=== PATIENT | female | born 1955 | race Caucasian/White ===

== ENCOUNTER → 2017-10-24 12:08 | Outpatient (CLI) | payer BC, SELFPAY ==
[2017-10-24 14:24] LABS: Absolute Lymphocyte Count 2.01 X10^3/ul (0.83-4.51); Absolute Neutrophil Count 3.7 X10^3/uL (2.0-7.7); Basophil# 0.01 X10^3/uL; Basophil% 0.2 % (0-1); Eosinophil# 0.06 X10^3/uL; Eosinophils% 0.9 % (0-5); Hematocrit 34.8 % (37-47); Hemoglobin 11.5 g/dl (12.0-15.0); Lymphocyte # 2.01 X10^3/ul (4.0); Lymphocyte % 31.3 % (19-41); Mean Corpuscular Hgb 31.7 pg (27.0-32.0); Mean Corpuscular Volume 95.9 fL (81-99); Monocyte# 0.68 X10^3/uL; Monocyte% 10.6 % (0-10); Neutrophil # 3.67 X10^3/uL (2.7-7.7); Platelet Count 310 K/mm3 (150-450); RBC Distribution Width CV 13.3 % (11.6-14.6); RBC Distribution Width SD 44.7 fl (35.1-43.9); Red Blood Count 3.63 M/mm3 (4.2-5.4); White Blood Count 6.4 K/mm3 (4.4-11.0)
[2017-10-24 14:31] LABS: AST(SGOT) 14 U/L (15-37); Alanine Aminotransfer ALT/SGPT 19 U/L (13-56); Albumin, Serum 3.7 g/dL (3.2-5.0); Alkaline Phosphatase 67 U/L (45-117); Bilirubin, Direct 0.11 mg/dL (0.00-0.30); Globulin 3.5 g/dL (2.2-4.2); Protein, Total 7.2 g/dL (6.4-8.2)
[2017-10-24 14:36] LABS: POSITIVE COUNT NO; POSITIVE DIFFERENTIAL NO; POSITIVE MORPHOLOGY NO
[2017-10-28 03:06] LABS: QNTFERON TB Ag Minus Nil Value < 0 IU/mL (.); QNTFERON TB Ag Value 0.09 IU/mL (.); QNTFERON TB Mitogen Value > 10.00 IU/mL (.); QNTFERON TB Nil Value 0.11 IU/mL (.)
[2017-10-28 08:18] LABS: QNTIFERON TB Gold Negative (Negative)
== END ==
PROVIDERS: Family Provider Student in an Organized Health Care Education/Training Program; PCP Student in an Organized Health Care Education/Training Program; Visit Provider Dermatology
DX: Z79.899 Other long term (current) drug therapy (principal); L40.0 Psoriasis vulgaris; L29.8 Other pruritus
CPT/HCPCS: 36415; 80076; 85025; 86480

== ENCOUNTER → 2018-04-21 16:02 | Outpatient (CLI) | payer BC, SELFPAY ==
[2018-04-21 17:52] LABS: Absolute Lymphocyte Count 2.64 X10^3/ul (0.83-4.51); Absolute Neutrophil Count 3.7 X10^3/uL (2.0-7.7); Basophil# 0.04 X10^3/uL; Basophil% 0.6 % (0-1); Eosinophil# 0.09 X10^3/uL; Eosinophils% 1.3 % (0-5); Lymphocyte # 2.64 X10^3/ul (4.0); Lymphocyte % 38.2 % (19-41); Mean Corp Hgb Conc 32.4 g/gl (32-36); Mean Corpuscular Hgb 31.6 pg (27.0-32.0); Mean Corpuscular Volume 97.7 fL (81-99); Mean Platelet Vol. 8.6 fl (6.2-12.0); Monocyte# 0.45 X10^3/uL; Monocyte% 6.5 % (0-10); Neutrophil # 3.68 X10^3/uL (2.7-7.7); Neutrophil % 53.3 % (47-70); Platelet Count 317 K/mm3 (150-450); RBC Distribution Width CV 13.9 % (11.6-14.6); RBC Distribution Width SD 48.3 fl (35.1-43.9); Red Blood Count 3.48 M/mm3 (4.2-5.4); White Blood Count 6.9 K/mm3 (4.4-11.0)
[2018-04-21 17:58] LABS: POSITIVE COUNT NO; POSITIVE DIFFERENTIAL NO; POSITIVE MORPHOLOGY NO
[2018-04-21 18:42] LABS: AST(SGOT) 21 U/L (15-37); Alanine Aminotransfer ALT/SGPT 22 U/L (13-56); Alkaline Phosphatase 77 U/L (45-117); Bilirubin, Direct 0.09 mg/dL (0.00-0.30); Globulin 3.8 g/dL (2.2-4.2); Protein, Total 7.8 g/dL (6.4-8.2)
== END ==
PROVIDERS: Family Provider Student in an Organized Health Care Education/Training Program; PCP Student in an Organized Health Care Education/Training Program; Visit Provider Dermatology
DX: Z79.899 Other long term (current) drug therapy (principal)
CPT/HCPCS: 36415; 80076; 85025

== ENCOUNTER 2018-04-22 13:30 | Outpatient (RCR) | payer BC, SELFPAY ==
--- NOTE | 2018-01-07 14:25 | HP.PTEVAL_ITS ---
Patient's Visit Information CHRIS BEATTY is a 62 year old F referred to Physical Therapy by ALEXANDER RG MD with a diagnosis of L TKA. Date of Evaluation: 01/07/18 Physical Therapist: Jelani Urban, PT, - Visit Plan Frequency: 2-3x /Week Duration: 6 Weeks Plan: L knee and calf stretching, AROM, - Subjective Subjective: Pt is 62 yo retired female s/p L TKA on 12/16/17. Pt notes L knee pain 5/10. Pt is taking tylenol for pain relief. In the last week, L knee pain has reached 7/10. Reports L calf pain and cramping at night. Pt reports the entire L leg starts shaking at night and then the calf begins to cramp at night. Pt reports difficulty sleeping. Pt reports difficulty bending the L knee. Pt walks up stairs one step at a time. - Pain L knee Pain Intensity (Out of 10): 5 Pain Intensity Range: 7 - Objective Neuro: All sensation in B LE to light touch is intact. Reflexes: B achilles 2+. AROM: L knee 0-8-68 deg. PROM: L knee flex 78 deg. MMT: Not tested at this time. L LE strength is 3/5 as pt is able to lift L leg against gravity. Incision: Surgical incision is healing nicely. Minimal redness noted. Girth: R knee is 42 cm. L knee is 42 cm. - Goals Goal 1:: Increase L knee ROM to 0-120 deg to help with ambulation and stair negotiation. Goal Time Frame: 4-6 Weeks Goal 2:: Reduce L knee pain to 0-2/10 to aid with sleeping. Goal Time Frame: 4-6 Weeks Goal 3:: Increase L LE strength by 1/2 grades to aid with ambulation. Goal Time Frame: 4-6 Weeks Goal 4:: Pt is I with HEP. Goal Time Frame: 4-6 Weeks - Rehabilitation Potential Physical Therapy Diagnosis: Decreased L knee ROM and L LE weakness secondary to L TKA. Rehabilitation Potential: Good - Anticipated Interventions Patient/Client Instruction: Educate patient on: Condition, Plan of Care For the Purpose of:: To improve health and function Therapeutic Exercise to Include: Strength training, Balance training, Passive ROM, Active ROM For the Purpose of:: To decrease pain, To decrease swelling/inflammation, To increase ROM, To improve muscle performance and motor function Manual Therapy Techniques to Include: Mobilization, Passive ROM For the Purpose of:: To decrease pain, To increase ROM Cryotherapy (ice pack, ice massage): Yes For the Purpose of:: To decrease pain Thank you for the opportunity to evaluate your patient. For Medicare and Medicare HMO plans, please review the plan of care and approve it. It will need to be FAXED BACK to us at [phone] for Medicare purposes. Please let me know if there are questions or concerns regarding this plan of care. Physician Signature: Date:
--- NOTE | 2018-01-29 15:09 | HP.PTREVAL_ITS ---
ALEXANDER RG MD, It has been my pleasure to treat CHRIS BEATTY over the last 10 visits for L TKA. Please see the progress note below for an update on the physical therapy plan of care! Subjective: I am doing better today. 3 1/2 /10 pain level Objective/Function: L knee pain 3.5/10. L knee ROM 0-110. L knee MMT 4-/5 throughout. Pt troy all Rx well Plan Plan: L knee and calf stretching, AROM, LE/Core strengthening. Goals Goal 1:: Increase L knee ROM to 0-120 deg to help with ambulation and stair negotiation. Goal Time Frame: 4-6 Weeks Goal 2:: Reduce L knee pain to 0-2/10 to aid with sleeping. Goal Time Frame: 4-6 Weeks Goal 3:: Increase L LE strength by 1/2 grades to aid with ambulation. Goal Time Frame: 4-6 Weeks Goal 4:: Pt is I with HEP. Goal Time Frame: 4-6 Weeks Anticipated Interventions Patient/Client Instruction: Educate patient on: Condition, Plan of Care For the Purpose of:: To improve health and function Therapeutic Exercise to Include: Strength training, Balance training, Passive ROM, Active ROM For the Purpose of:: To decrease pain, To decrease swelling/inflammation, To increase ROM, To improve muscle performance and motor function Manual Therapy Techniques to Include: Mobilization, Passive ROM For the Purpose of:: To decrease pain, To increase ROM Cryotherapy (ice pack, ice massage): Yes For the Purpose of:: To decrease pain Please do not hesitate to contact me at [phone] by phone or Fax: if you have questions or concerns regarding this new plan of care! Sincerely, Jelani Urban, PT,
--- NOTE | 2018-03-05 14:06 | HP.PTREVAL_ITS ---
ALEXANDER RG MD, It has been my pleasure to treat CHRIS BEATTY over the last 20 visits for L TKA. Please see the progress note below for an update on the physical therapy plan of care! Subjective: Mild pain this date. just took advil before coming today Objective/Function: L knee pain is currently 3/10, increases to 5/10 at worst. L knee girth at joint line: 41 cm. L knee MMT: 4-/5 throughout. L knee ROM: 0- 111 Plan Plan: Recheck after pt returns from 5 week vacation Goals Goal 1:: Increase L knee ROM to 0-120 deg to help with ambulation and stair negotiation. Goal Time Frame: 4-6 Weeks Goal 2:: Reduce L knee pain to 0-2/10 to aid with sleeping. Goal Time Frame: 4-6 Weeks Goal 3:: Increase L LE strength by 1/2 grades to aid with ambulation. Goal Time Frame: 4-6 Weeks Goal 4:: Pt is I with HEP. Goal Time Frame: 4-6 Weeks Anticipated Interventions Patient/Client Instruction: Educate patient on: Condition, Plan of Care For the Purpose of:: To improve health and function Therapeutic Exercise to Include: Strength training, Balance training, Passive ROM, Active ROM For the Purpose of:: To decrease pain, To decrease swelling/inflammation, To increase ROM, To improve muscle performance and motor function Manual Therapy Techniques to Include: Mobilization, Passive ROM For the Purpose of:: To decrease pain, To increase ROM Cryotherapy (ice pack, ice massage): Yes For the Purpose of:: To decrease pain Please do not hesitate to contact me at [phone] by phone or Fax: if you have questions or concerns regarding this new plan of care! Sincerely, Jelani Urban, PT,
--- NOTE | 2018-04-22 14:14 | HP.PTEVAL_ITS ---
Patient's Visit Information CHRIS BEATTY is a 62 year old F referred to Physical Therapy by ALEXANDER RG MD with a diagnosis of L TKA. Date of Evaluation: 01/07/18 Physical Therapist: Jelani Urban PT, - Visit Plan Frequency: 2-3x /Week Duration: 6 Weeks Plan: Discharge - Subjective Subjective: Pt is 62 yo retired female s/p L TKA on 12/16/17. Pt notes L knee pain 5/10. Pt is taking tylenol for pain relief. In the last week, L knee pain has reached 7/10. Reports L calf pain and cramping at night. Pt reports the entire L leg starts shaking at night and then the calf begins to cramp at night. Pt reports difficulty sleeping. Pt reports difficulty bending the L knee. Pt walks up stairs one step at a time. - Pain L knee Pain Intensity (Out of 10): 3 Pain Intensity Range: 7 - Objective Neuro: All sensation in B LE to light touch is intact. Reflexes: B achilles 2+. AROM: L knee 0-8-68 deg. PROM: L knee flex 78 deg. MMT: Not tested at this time. L LE strength is 3/5 as pt is able to lift L leg against gravity. Incision: Surgical incision is healing nicely. Minimal redness noted. Girth: R knee is 42 cm. L knee is 42 cm. - Goals Goal 1:: Increase L knee ROM to 0-120 deg to help with ambulation and stair negotiation. Goal Time Frame: 4-6 Weeks Goal 2:: Reduce L knee pain to 0-2/10 to aid with sleeping. Goal Time Frame: 4-6 Weeks Goal 3:: Increase L LE strength by 1/2 grades to aid with ambulation. Goal Time Frame: 4-6 Weeks Goal 4:: Pt is I with HEP. Goal Time Frame: 4-6 Weeks - Rehabilitation Potential Physical Therapy Diagnosis: Decreased L knee ROM and L LE weakness secondary to L TKA. Rehabilitation Potential: Good - Anticipated Interventions Patient/Client Instruction: Educate patient on: Condition, Plan of Care For the Purpose of:: To improve health and function Therapeutic Exercise to Include: Strength training, Balance training, Passive ROM, Active ROM For the Purpose of:: To decrease pain, To decrease swelling/inflammation, To increase ROM, To improve muscle performance and motor function Manual Therapy Techniques to Include: Mobilization, Passive ROM For the Purpose of:: To decrease pain, To increase ROM Cryotherapy (ice pack, ice massage): Yes For the Purpose of:: To decrease pain Thank you for the opportunity to evaluate your patient. For Medicare and Medicare HMO plans, please review the plan of care and approve it. It will need to be FAXED BACK to us at [phone] for Medicare purposes. Please let me know if there are questions or concerns regarding this plan of care. Physician Signature: Date:
--- NOTE | 2018-04-22 14:15 | HP.PTDCSUM_ITS ---
HP - PT D/C Summary It has been my pleasure to treat CHRIS BEATTY under orders from ALEXANDER RG MD , for the diagnosis of L TKA for a total of 21 visit(s). Discharge Date: Please see the following information for a summary of their discharge status. - Subjective Subjective: Pt feels like she is over the hump now. still very stiff - Pain L knee Pain Intensity (Out of 10): 3 - Overall Improvement % Improvement: 50 - Objective Objective/Function: L knee pain ranges from 3/10 to 5/10. L knee ROM: 0-115 degrees. L knee MMT: 4/5 throughout. Pt has achieved all Rx goals. - Goals Goal 1:: Increase L knee ROM to 0-120 deg to help with ambulation and stair negotiation. Goal 2:: Reduce L knee pain to 0-2/10 to aid with sleeping. Goal 3:: Increase L LE strength by 1/2 grades to aid with ambulation. Goal 4:: Pt is I with HEP. - Plan Plan: Discharge - D/C Information If there are questions or concerns regarding this patient's physical therapy, please feel free to call me at [phone]. Thank you for the referral of this patient. Sincerely, Jelani Urban, PT,
== END 2018-04-22 15:57 | disposition home or self-care (01) ==
LOC: PT 13:30
PROVIDERS: Family Provider Student in an Organized Health Care Education/Training Program; PCP Student in an Organized Health Care Education/Training Program
DX: Z47.1 Aftercare following joint replacement surgery (principal)
CPT/HCPCS: 97110; 97161; 97530

== ENCOUNTER → 2018-07-29 10:21 | Outpatient (CLI) | payer BC, SELFPAY ==
[2018-07-29 12:11] LABS: Absolute Lymphocyte Count 1.96 X10^3/ul (0.83-4.51); Absolute Neutrophil Count 3.6 X10^3/uL (2.0-7.7); Basophil# 0.02 X10^3/uL; Basophil% 0.3 % (0-1); Eosinophil# 0.07 X10^3/uL; Eosinophils% 1.1 % (0-5); Hematocrit 35.2 % (37-47); Hemoglobin 11.3 g/dl (12.0-15.0); Lymphocyte # 1.96 X10^3/ul (4.0); Lymphocyte % 31.6 % (19-41); Mean Corp Hgb Conc 32.1 g/gl (32-36); Mean Corpuscular Hgb 30.9 pg (27.0-32.0); Mean Corpuscular Volume 96.2 fL (81-99); Mean Platelet Vol. 8.6 fl (6.2-12.0); Monocyte# 0.53 X10^3/uL; Monocyte% 8.5 % (0-10); Neutrophil # 3.62 X10^3/uL (2.7-7.7); Neutrophil % 58.5 % (47-70); Platelet Count 294 K/mm3 (150-450); RBC Distribution Width CV 13.1 % (11.6-14.6); RBC Distribution Width SD 45.6 fl (35.1-43.9); Red Blood Count 3.66 M/mm3 (4.2-5.4); White Blood Count 6.2 K/mm3 (4.4-11.0)
[2018-07-29 12:12] LABS: POSITIVE COUNT NO; POSITIVE DIFFERENTIAL NO; POSITIVE MORPHOLOGY NO
[2018-07-29 12:24] LABS: AST(SGOT) 17 U/L (15-37); Alanine Aminotransfer ALT/SGPT 18 U/L (13-56); Albumin, Serum 3.8 g/dL (3.2-5.0); Alkaline Phosphatase 80 U/L (45-117); Bilirubin, Direct 0.13 mg/dL (0.00-0.30); Globulin 3.7 g/dL (2.2-4.2); Protein, Total 7.5 g/dL (6.4-8.2)
--- OUTSIDE RECORDS SUMMARY | 2018-10-30 18:34 | XMS RPT_ITS ---
:1955 Author Organization OHIP Support Name Relationship Address Phone Dr. LISETTE BEATTY Unavailable Unavailable + ROGERIO, LISETTE Unavailable Unavailable + ROGERIO, Dr. KNOX Unavailable Unavailable + ROGERIO, LISETTE Unavailable Unavailable + ROGERIO, LISETTE Unavailable [address] [place] [address] + [place] [address] R Unavailable Unavailable Unavailable ROGERIO, Dr. KNOX Unavailable Unavailable + ROGERIO, LISETTE Unavailable Unavailable + ROGERIO, Dr. KNOX Unavailable Unavailable + ROGERIO, LISETTE Unavailable Unavailable + ROGERIO, LISETTE Unavailable [address] [place] [address] + [place] [address] R Unavailable Unavailable Unavailable ROGERIO, LISETTE Unavailable [address] [place] [address] + [place] [address] R Unavailable Unavailable Unavailable ROGERIO, Dr. KNOX Unavailable Unavailable + ROGERIO, LISETTE Unavailable Unavailable + ROGERIO, Dr. KNOX Unavailable Unavailable + ROGERIO, LISETTE Unavailable Unavailable + ROGERIO, Dr. KNOX Unavailable Unavailable + ROGERIO, LISETTE Unavailable Unavailable + ROGERIO, Dr. KNOX Unavailable Unavailable + ROGERIO, LISETTE Unavailable Unavailable + ROGERIO, Dr. KNOX Unavailable Unavailable + ROGERIO, LISETTE Unavailable Unavailable + ROGERIO, LISETTE Unavailable [address] [place] [address] + [place] [address] S Unavailable Unavailable Unavailable Care Team Providers Name Role Phone CHRIS DONALD Attending Unavailable ARMANIDILLON Martha (TOOL AND DIE MAKER) Referring Unavailable Reji Thibodeaux Attending Unavailable Donald, Chris Primary Care Unavailable Donald, Chris Primary Care Unavailable LIBIA LYN Attending Unavailable LIBIA LYN Referring Unavailable Reji Thibodeaux Attending Unavailable Reji Thibodeaux Referring Unavailable DonaldChris marie Primary Care Unavailable Reji Thibodeaux Attending Unavailable Reji Thibodeaux Referring Unavailable Donald, Chris Primary Care Unavailable Shalini, Dr. Alexander Mackay Attending Unavailable Fariba, Ofelia Primary Care Unavailable Kraay, Dr. Alexander Mackay Attending Unavailable Fariba, Ofelia Primary Care Unavailable Kraay, Dr. Alexander Mackay Admitting Unavailable Kraay, Dr. Alexander Mackay Attending Unavailable Fariba, Ofelia Referring Unavailable Donald, Dr. Chris Melissa Primary Care Unavailable Kramiguel, Dr. Alexandre Mackay Attending Unavailable Bobinsky, Toby M Referring Unavailable Fariba, Ofelia Primary Care Unavailable Kramiguel, Dr. Alexander Mackay Attending Unavailable Donald, Dr. Chris Melissa Primary Care Unavailable Kramiguel, Dr. Alexander Mackay Attending Unavailable Donald, Dr. Chris Melissa Referring Unavailable Donald, Dr. Chris Melissa Primary Care Unavailable Shalini, Dr. Alexander Mackay Attending Unavailable Donald, Dr. Chris Melissa Primary Care Unavailable Taylor, Dr. Zari Campos Attending Unavailable Montserratay, Dr. Alexander Mackay Referring Unavailable Donald, Dr. Chris Melissa Primary Care Unavailable Taylor, Dr. Zari Campos Attending Unavailable Dayday, Dr. Chris Melissa Primary Care Unavailable PROBLEMS PROBLEMS DATE TYPE CONDITION / CODE ATTENDING STATUS SOURCE 09/03/2018 Admitting Spinal stenosis, Dr. Taylor Active [place] diagnosis lumbar region [facility] without [facility] Repository neurogenic mahogany / M48.061(ICD-10) 09/03/[address] Active [place] diagnosis unspecified side [facility] / M54.30(ICD-10) [facility] Repository 07/10/[address] Shahab Loya diagnosis following joint [facility] replacement Repository surgery / Z47.1(ICD-10) 07/10/2018 Admitting Presence of left Dr. Shalini Active [place] diagnosis artificial knee [facility] joint / Repository Z96.652(ICD-10) 07/10/[address] Shahab Loya (discharge) following joint [facility] replacement Repository surgery / Z47.1(ICD-10) 07/10/2018 Final diagnosis Presence of left Dr. Shahab Loya (discharge) artificial knee [facility] joint / Repository Z96.652(ICD-10) 04/22/2018 Unknown Z47.1 - Aftercare LIBIA LYN Active [place] [facility] / Repository Z47.1(ICD-10) 02/20/2018 Active Encounter for NA Active [facility] examination Repository without abnormal findings / Z00.00(ICD-10) 12/17/[address] Shahab Loya diagnosis primary [facility] osteoarthritis, Repository left knee / M17.12(ICD-10) 12/17/[address] Shahab Loya (discharge) primary [facility] osteoarthritis, Repository left knee / M17.12(ICD-10) 12/17/2017 Final diagnosis Osteophyte, left Dr. Shahab Loya (discharge) knee / [facility] M25.762(ICD-10) Repository 12/06/[address] Shahab Loya diagnosis primary [facility] osteoarthritis, Repository unspecified knee / M17.10(ICD-10) 12/06/[address] Shahab Loya (discharge) primary [facility] osteoarthritis, Repository unspecified knee / M17.10(ICD-10) 12/06/2017 Final diagnosis Pain in left leg Dr. Shahab Loya (discharge) / M79.605(ICD-10) [facility] Repository PROCEDURES PROCEDURES DATE CODE DESCRIPTION STATUS SOURCE 12/16/2017 [id number](ICD10- [id number] Completed [facility] Repository RESULTS RESULTS NR MRI L-SPINE WO Observed: 09/03/2018 Status: F Source: [place] 1:57 PM HOSPITALS REPOSITORY Patient Name: ANALISA BEATTY STUDY: MRI L-SPINE WO; 09/03/2018 1:57 pm INDICATION: Signs/Symptoms: stenosis. COMPARISON: MRI of lumbar spine from 02/22/2014 ACCESSION NUMBER(S): [id number] ORDERING CLINICIAN: ZARI MYERS TECHNIQUE: Sagittal and axial T1 and T2 weighted images of the lumbar spine were acquired. Sagittal STIR imaging was also performed. FINDINGS: Alignment: There is partial lumbarization of the S1 vertebral body. There is grade 1-2 anterolisthesis of L5 over S1 as before. There is grade 1 anterolisthesis of L4 over L5 which appears more prominent as compared to prior study. There is minimal retrolisthesis of L3 over L4 which also appears slightly more exaggerated as compared to prior exam. Vertebrae/Intervertebral Discs: The vertebral bodies demonstrate expected height.There are patchy chronic degenerative marrow signal changes at multiple levels particularly surrounding L4-L5 and L5-S1. There is desiccation and degeneration of several intervertebral discs in the lower thoracic and lumbar region. Note is also made of multilevel anterior and posterior osteophytic spurring Conus: The lower thoracic cord appears unremarkable. The conus terminates at L2. At L5-S1, there is grade 1-2 anterolisthesis of L5 over S1. There is a circumferential disc bulge with prominent posterior osteophytic spurring and marked bilateral facet hypertrophy. There is moderate to severe central canal stenosis, similar to slightly worsened as compared to prior exam. There is moderate bilateral neural foraminal narrowing. At L4-L5, there is prominent posterior osteophytic spurring with bilateral facet and ligamentum flavum hypertrophy. There is moderate to severe central canal stenosis, worse as compared to prior study. There is moderate bilateral neural foraminal narrowing, similar to prior exam. At L3-L4, there is a posterior disc bulge with bilateral facet and ligamentum flavum hypertrophy. There is mild overall central canal stenosis with narrowing of left lateral recess, slightly more pronounced as compared to prior exam. There is envw-fl-igkljaxn bilateral neural foraminal narrowing. At L2-L3, there is posterior disc bulge with bilateral facet hypertrophy. There is mild narrowing of bilateral lateral recesses without overall central canal stenosis. There is no significant neural foraminal narrowing. At L1-L2, there is a posterior disc bulge with posterior osteophytic spurring and bilateral facet hypertrophy. There is mild narrowing of bilateral lateral recesses with mild bilateral neural foraminal narrowing. At T12-L1, there is posterior disc bulge with posterior osteophytic spurring. There is no central canal stenosis or neural foraminal narrowing. There is volume loss of the paraspinous muscles.. IMPRESSION: Grade 1-2 anterolisthesis of L5 over S1 as before. Grade 1 anterolisthesis of L4 over L5, more pronounced as compared to prior study. Lumbar spondylosis with varying severity of central canal and neural foramina narrowing at multiple levels as discussed. The findings in the lower lumbar region are more pronounced as compared to prior study as detailed above. The study was interpreted at [facility]. Electronically signed by: NOEMI THORPE MD INITIAL VISIT Observed: 08/20/2018 Status: UNK Source: [place] (ORTHOPAEDIC SURGERY) 4:43 PM HOSPITALS REPOSITORY Chief Complaint Left leg and back pain History of Present Illness Analisa is a pleasant 63-year-old retired woman who is referred by Dr. Loya. As well, her brother is a retired physician who did some initial orthopedic training at [facility], [facility]. She fell in 2016 and developed rather severe left knee pain. She has had chronic intermittent problems with her back as well. In December 2017 she underwent a left total knee replacement and initially had go od relief of her arthritic pain in her left knee. However, she is continued to have rather persistent radiating left buttock posterior thigh and calf pain. Previously she been an avid walker, walking several miles a day. Over the last year or so though she has had more difficulty with radiating leg pain that is worse with prolonged standing and walking. She has completed physical therapy for her left knee. Family, social, and medical histories are obtained and reviewed. 30-point, patient-recorded Review of Systems is personally obtained and reviewed. Inclusive is no history of weight loss, change in appetite, recent change in activity level, change in bowel or bladder habits, fevers, chills, malaise, or night pain. On exam, she is a pleasant older woman of small stature. She has a slow deliberate gait. Limited flexion. Painless motion both hips. Palpable dorsalis pedis pulses. Her strength is intact in the lower extremities without pathologic reflexes. Plain films show a partially lumbarized S1 vertebral body. She has a grade 1 spondylolisthesis of L5 on S1 and a slight anterolisthesis of L4 on 5. An MRI from 2013 shows severe stenosis at both L4-5 and L5-S1. Impression: She has persistent and severe left lumbar radiculopathy and she has quite severe lumbar spinal stenosis with a spondylolisthesis at both L4-5 and L5-S1. We have had a lengthy discussion about the nature of her symptoms and the different treatment options. Given the severity of her symptoms and the severity of her stenosis, she is a candidate for surgery in the form of a posterior decompression and instrumented fusion. Certainly she could try some additional therapy directed at her back and potentially even epidural injections. With the severity of her stenosis, I think epidural injections would be of limited benefit. I would encourage her to think about things. Certainly I'd be happy to discuss surgery with her again. She is going to consider things and will let me know what direction she would like to go. Dictated with voice recognition software and not immediately reviewed for errors in grammar and/or spelling Active Problems Acquired spondylolisthesis (738.4) (M43.10) Aftercare following left knee joint replacement surgery (V54.81,V43.65) (Z47.1,Z96.652) Bursitis of hip (726.5) (M70.70) Osteoarthritis of knee (715.36) (M17.10) Added by Problem List Migration; 2013-04-05; Moved to [facility] Jul 05 2013 4:34PM Sciatica (724.3) (M54.30) Spinal stenosis, lumbar (724.02) (M48.061) Status post left knee replacement (V43.65) (Z96.652) Surgery, elective (V50.9) (Z41.9) Past Medical History History of hypothyroidism (V12.29) (Z86.39) Family History Family history of cardiac disorder (V17.49) (Z82.49) Social History Never a smoker Social alcohol use Allergies Daypro Recorded By: Ronda Gupta; 09/10/2013 2:05:20 PM Current Meds Amoxicillin 500 MG Oral Tablet; TAKE 4 TABLETS 1 HOUR BEFORE DENTAL APPOINTMENT; Therapy: [id number] to (Evaluate:40Qtm5699) Requested for: 12Wop4828; Last Rx:[id number] Ordered Rx By: Alexander Loya; Dispense: 6 Days ; #:24 Tablet; Refill: 1;For: Aftercare following left knee joint replacement surgery; HORTENSIA = N; Verified Transmission to [facility] Atenolol 25 MG Oral Tablet; Therapy: 10Sep2013 to Recorded Dispense: 0 Days ; #: Sufficient Tablet; Refill: 0; HORTENSIA = N; Record; Last Updated By: Ronda Gutpa; 09/10/2013 2:06:13 PM Synthroid 75 MCG Oral Tablet; Therapy: 10Sep2013 to Recorded Dispense: 0 Days ; #: Sufficient Tablet; Refill: 0; HORTENSIA = N; Record; Last Updated By: Ronda Gupta; 09/10/2013 2:06:13 PM Diagnoses/Problems Spinal stenosis, lumbar (724.02) (M48.061) Orders Sciatica, Spinal stenosis, lumbar MRI L Spine without Contrast; Status:Active; Requested for:03Sep2018; Perform:[facility];Ordered; For:Sciatica, Spinal stenosis, lumbar; Ordered By:Zari Myers; Reason: Unspecified for MRI L Spine without Contrast Radiologist to Determine Optimal Study : Y What are the patient's signs and symptoms? : stenosis Signatures Electronically signed by : Zari Myers MD,; Aug 20 2018 4:43PM EST (Author) Reviewed by : Alexander Loya MD,; Aug 25 2018 7:46PM EST CBC W/DIFF, AUTOMATED Collected: 07/29/2018 Status: F Source: [place] 10:34 AM [facility] TYPE CODE TESTS RESULT OUT OF RANGE REFERENCE UNITS LAB L100.1000 4.4-11.0 K/mm3 Normal WBC 6.2 LAB L100.1200 4.2-5.4 M/mm3 Low RBC 3.66 LAB L100.1300 12.0-15.0 g/dl Low HGB 11.3 LAB L100.1400 37-47 % Low HCT 35.2 LAB L100.1500 81-99 fL Normal MCV 96.2 LAB L100.1600 27.0-32.0 pg Normal MCH 30.9 LAB L100.1700 32-36 g/gl Normal MCHC 32.1 LAB L100.1810 11.6-14.6 % Normal RDW CV 13.1 LAB L100.1820 35.1-43.9 fl High RDW SD 45.6 LAB L100.1900 150-450 K/mm3 Normal PLT 294 LAB L100.2000 6.2-12.0 fl Normal MPV 8.6 LAB L100.2100 47-70 % Normal NEUT% 58.5 LAB L100.2200 19-41 % Normal LY% 31.6 LAB L100.2300 0-10 % Normal MONO% 8.5 LAB L100.2400 0-5 % Normal EO% 1.1 LAB L100.2500 0-1 % Normal BASO% 0.3 LAB L100.2550 0.0-0.9 % Normal IM GRAN % 0.000 Result Comment: IG% - Immature Granulocytes (promyelocytes, myelocytes and metamyelocytes) > 1% indicates that a LEFT SHIFT is Present. LAB L100.2620 2.0-7.7 X10 3/uL Normal Absolute Neut 3.6 LAB L100.2720 0.83-4.51 X10 3/ul Normal Absolute Lymph 1.96 Performed By: #### L100.0100 #### [facility] [address] [place], [place], [id number] LIVER PROFILE Collected: 07/29/2018 Status: F Source: [place] 10:34 AM [facility] [place] TYPE CODE TESTS RESULT OUT OF RANGE REFERENCE UNITS LAB L501.1500 6.4-8.2 g/dL Normal T PROT 7.5 LAB L501.1800 3.2-5.0 g/dL Normal ALB 3.8 LAB L501.1950 2.2-4.2 g/dL Normal GLOB 3.7 LAB L501.4100 15-37 U/L Normal AST 17 LAB L501.4305 45-117 U/L Normal ALK P 80 LAB L501.4405 13-56 U/L Normal ALT 18 LAB L501.4600 0.20-1.00 mg/dL Normal T BILI 0.40 LAB L501.4700 0.00-0.30 mg/dL Normal D BILI 0.13 Performed By: #### L500.3400 #### [facility] [address], [place], [id number] ESTABLISHED VISIT Observed: 07/10/2018 Status: UNK Source: [place] (ORTHOPAEDIC SURGERY) 4:03 PM HOSPITALS REPOSITORY Chief Complaint Patient returns today for left knee follow up.,-MK Active Problems Acquired spondylolisthesis (738.4) (M43.10) Aftercare following left knee joint replacement surgery (V54.81,V43.65) (Z47.1,Z96.652) Bursitis of hip (726.5) (M70.70) Osteoarthritis of knee (715.36) (M17.10) Added by Problem List Migration; 2013-04-05; Moved to [facility] Jul 05 2013 4:34PM Sciatica (724.3) (M54.30) Spinal stenosis, lumbar (724.02) (M48.061) Status post left knee replacement (V43.65) (Z96.652) Surgery, elective (V50.9) (Z41.9) Past Medical History History of hypothyroidism (V12.29) (Z86.39) Family History Family history of cardiac disorder (V17.49) (Z82.49) Social History Never a smoker Social alcohol use Allergies Daypro Recorded By: Ronda Gupta; 09/10/2013 2:05:20 PM Current Meds Amoxicillin 500 MG Oral Tablet; TAKE 4 TABLETS 1 HOUR BEFORE DENTAL APPOINTMENT; Therapy: 04Mar2018 to (Evaluate:20Vun4555) Requested for: 78Bup2870; Last Rx:[id number] Ordered Rx By: Alexander Loya; Dispense: 6 Days ; #:24 Tablet; Refill: 1;For: Aftercare following left knee joint replacement surgery; HORTENSIA = N; Verified Transmission to [facility] TraMADol HCl - 50 MG Oral Tablet; TAKE 1 TABLET 3 TIMES DAILY NEEDED; Therapy: 30Jan2018 to (Evaluate:06Feb2018); Last Rx:30Jan2018 Ordered Rx By: Rere Tyler; Dispense: 7 Days ; #:21 Tablet; Refill: 0;For: Aftercare following left knee joint replacement surgery; HORTENSIA = N; Print Rx TraMADol HCl - 50 MG Oral Tablet; TAKE 1 TABLET 3 TIMES DAILY; Therapy: 05Feb2018 to (Evaluate:32Kpw9238) Recorded Rx By: Rere Tyler; Dispense: 14 Days ; #:42 Tablet; Refill: 0;For: Aftercare following left knee joint replacement surgery; HORTENSIA = N; Record; Msg to Pharmacy: For 14 days TraMADol HCl - 50 MG Oral Tablet; TAKE 1 TABLET EVERY 6 HOURS NEEDED FOR BREAKTHROUGH PAIN; Therapy: 23Dec2017 to (Evaluate:30Dec2017) Recorded Rx By: Rere Tyler; Dispense: 7 Days ; #:28 Tablet; Refill: 0;For: Aftercare following left knee joint replacement surgery; HORTENSIA = N; Record MethylPREDNISolone (Brandon) 4 MG TABS; TAKE DIRECTED ON PATIENT INSTRUCTION CARD; Therapy: 05Nov2013 to (Last Rx:05Nov2013) Requested for: 06Nov2013 Ordered Rx By: Alexander Loya; Dispense: 0 Days ; #:1 Tablet; Refill: 0;For: Bursitis of hip; HORTENSIA = N; Verified Transmission to [facility] Hibiclens 4 % External Liquid; USE DIRECTED; Therapy: 11Dec2017 to (Last Rx:11Dec2017) Requested for: [id number] Ordered Rx By: Alexander Loya; Dispense: 0 Days ; #:1 ML; Refill: 0;For: Surgery, elective; HORTENSIA = N; Verified Transmission to [facility] Mupirocin 2 % External Ointment; for intranasal use as directed twice daily starting 3 days prior to and continuing for 5 days total; Therapy: 11Dec2017 to (Last Rx:11Dec2017) Requested for: 03Jqs9524 Ordered Rx By: Alexander Loya; Dispense: 0 Days ; #:1 GM; Refill: 0;For: Surgery, elective; HORTENSIA = N; Verified Transmission to [facility] Atenolol 25 MG Oral Tablet; Therapy: 10Sep2013 to Recorded Dispense: 0 Days ; #: Sufficient Tablet; Refill: 0; HORTENSIA = N; Record; Last Updated By: Ronda Gupta; 09/10/2013 2:06:13 PM Synthroid 75 MCG Oral Tablet; Therapy: 10Sep2013 to Recorded Dispense: 0 Days ; #: Sufficient Tablet; Refill: 0; HORTENSIA = N; Record; Last Updated By: Ronda Gupta; 09/10/2013 2:06:13 PM Results/Data Xray Knee 3 [id number] 12:00AMAlexander Loya [Jul 10, 2018 3:13PM Alexander Loya] Reason: Unspecified for Xray Knee 3 View Test NameResultFlagReference Xray Knee 3 View Please click on the link to view the study images Diagnoses/Problems Aftercare following left knee joint replacement surgery (V54.81,V43.65) (Z47.1,Z96.652) Spinal stenosis, lumbar (724.02) (M48.061) Orders Aftercare following left knee joint replacement surgery Xray Knee 3 View; Status:Resulted - Preliminary,Retrospective Authorization; Done: 10Jul2018 12:00AM Due:[id number];Ordered; For:Aftercare following left knee joint replacement surgery; Ordered By:Alexander Loya; Reason: Unspecified for Xray Knee 3 View Laterality : Left Radiologist to Determine Optimal Study : Y What are the patient's signs and symptoms? : pain Bursitis of hip, Spinal stenosis, lumbar C Reactive Protein, Serum; Specimen Source:Blood (BLD); Status:Active - Retrospective Authorization; Requested for:10Jul2018; Perform:Lab Services - Lab To Draw (Blood Test); Due:79Jmn1367; Last Updated By:Cuco Holman; 07/10/2018 3:41:08 PM;Ordered; For:Bursitis of hip, Spinal stenosis, lumbar; Ordered By:Alexander Loya; Sedimentation Rate, Erythrocyte; Specimen Source:Blood (BLD); Status:Active - Retrospective Authorization; Requested for:10Jul2018; Perform:Lab Services - Lab To Draw (Blood Test); Due:01Eqf7637; Last Updated By:Cuco Holman; 07/10/2018 3:41:08 PM;Ordered; For:Bursitis of hip, Spinal stenosis, lumbar; Ordered By:Alexander Loya; Provider Impressions Patient comes in the office today. She is here for follow- up evaluation of her knee. She is somewhat disappointed by the fact that she still is having diffuse pain over the anterior aspect of her left k nee. She has no history of any trauma. She is able walk a essentially unlimited amount. Sounds like her pain is almost constant. She had some type of a nasal reconstructive surgery for a skin cancer. Shant blake has no history of infection. Patient's brother who is a friend and anesthesiologist is concerned that perhaps there is something wrong with her knee replacement. she has a smooth nonantalgic gait. She has no effusion or signs of infection. She has full active extension. She flexes to 120. Her ligament stability intact. I sent her for new x-rays today. Implants are in perfect position no signs of loo sening or other problems. We will send the patient to the lab for sedimentation rate and CRP. Patient has no signs of hip arthritis based on her previous joint survey. I reviewed her MRI studies back to when i started seeing her. She has spinal stenosis symptoms back in 2013 and an MRI demonstrated moderate to severe foraminal stenosis at the L3-4 level which exactly corresponds to her symptoms. She a lso had a grade 2 spondy at that time. Suspect the patient's symptoms are coming from spinal stenosis. she should call me tomorrow for her laboratory results. Recommended pain management. I offered to perry ramirez her back in physical therapy which she does not feel is necessary. I do not see any problems with her knee replacement. I did tell the patient it does take upwards of a year to recover completely fro m the replacement surgery. She really seems to be functioning at a very high level although she is has pain that I think is related to her chronic spinal stenosis which is likely progressed in the last 4 years. Signatures Electronically signed by : Alexander Loya MD,; Jul 10 2018 4:03PM EST (Author) SEDIMENTATION RATE, Collected: 07/10/2018 Status: F Source: [place] ERYTHROCYTE 3:48 PM HOSPITALS REPOSITORY TYPE CODE TESTS RESULT OUT OF REFERENCE UNITS RANGE LAB ESRWS(LOIN 0 - 30 mm/h C) SEDIMENTATION RATE, ERYTHROCYTE 7 Performed By: #### ESRWS #### [facility] [address] [place] [address] C-REACTIVE PROTEIN Collected: 07/10/2018 Status: F Source: [place] 3:48 PM [facility] REPOSITORY TYPE CODE TESTS RESULT OUT OF REFERENCE UNITS RANGE LAB CRP(LOINC) mg/dL C-REACTIVE 0.48 PROTEIN Result Comment: REF VALUE < 1.00 Performed By: #### CRP #### [facility] [address] [place] [address] KNEE, 3 VIEWS Observed: 07/10/2018 Status: F Source: [place] 3:22 PM HOSPITALS REPOSITORY Patient Name: ANALISA BEATTY STUDY: ANA KNEE; 3 VIEWS; 07/10/2018 3:22 pm INDICATION: Signs/Symptoms: pain. COMPARISON: 01/30/2018 ACCESSION NUMBER(S): [id number] ORDERING CLINICIAN: ALEXANDER LOYA TECHNIQUE: Three views of the left knee FINDINGS: Left knee prosthesis is in place. No evidence of hardware loosening or failure. Bones are demineralized. There is no fracture or dislocation. No significant interval change. IMPRESSION: No significant interval change. No fracture. Electronically signed by: GAUDENCIO YODER MD PT D/C SUMMARY (1) Observed: 04/22/2018 Status: F Source: [place] 2:15 PM [facility] [place] [place] [address] Fax REHABILITATION SERVICES DISCHARGE SUMMARY MR#: [id number] Acct: [id number] Name: ANALISA BEATTY Rep #: [id number] : 1955 62 From: Jelani Urban PT, ATC Referring DrBry: Status: REG RCR Insurance: [employer] SELF PAY INSURANCE HP - PT D/C Summary It has been my pleasure to treat ANALISA BEATTY under orders from ALEXANDER LOYA MD, for the diagnosis of L TKA for a total of 21 visit(s). Discharge Date: Please see the following information for a summary of their discharge status. - Subjective Subjective: Pt feels like she is over the hump now. still very stiff - Pain L knee Pain Intensity (Out of 10): 3 - Overall Improvement % Improvement: 50 - Objective Objective/Function: L knee pain ranges from 3/10 to 5/10. L knee ROM: 0-115 degrees. L knee MMT: 4/5 throughout. Pt has achieved all Rx goals. - Goals Goal 1:: Increase L knee ROM to 0-120 deg to help with ambulation and stair negotiation. Goal 2:: Reduce L knee pain to 0-2/10 to aid with sleeping. Goal 3:: Increase L LE strength by 1/2 grades to aid with ambulation. Goal 4:: Pt is I with HEP. - Plan Plan: Discharge - D/C Information If there are questions or concerns regarding this patient's physical therapy, please feel free to call me at [phone]. Thank you for the referral of this patient. Sincerely, Jelani Urban PT, <Electronically signed by Jelani Urban PT, ATC> 04/22/18 9005 CC: Chris Arceo DO; OUT OF TOWN DOCTOR [facility] Signed INITAL EVALUATION (1) Observed: 04/22/2018 Status: F Source: [place] - [place] 2:14 PM [facility] [facility] [place] [facility] [address] [place] [address]. [address] [place] [address] Fax REHABILITATION SERVICES INITIAL EVALUATION MR#: [id number] Acct: [id number] Name: ANALISA BEATTY Rep #: [id number] : 1955 62 From: Jelani Urban PT, ATC Referring DrBry: Status: REG RCR Insurance: [employer] SELF PAY INSURANCE Patient's Visit Information ANALISA BEATTY is a 62 year old F referred to Physical Therapy by ALEXANDER LOYA MD with a diagnosis of L TKA. Date of Evaluation: 01/07/18 Physical Therapist: Jelani Urban PT, - Visit Plan Frequency: 2-3x /Week Duration: 6 Weeks Plan: Discharge - Subjective Subjective: Pt is 62 yo retired female s/p L TKA on 12/16/17. Pt notes L knee pain 5/10. Pt is taking tylenol for pain relief. In the last week, L knee pain has reached 7/10. Reports L calf pain and cramping at night. Pt reports the entire L leg starts shaking at night and then the calf begins to cramp at night. Pt reports difficulty sleeping. Pt reports difficulty bending the L knee. Pt walks up stairs one step at a time. - Pain L knee Pain Intensity (Out of 10): 3 Pain Intensity Range: 7 - Objective Neuro: All sensation in B LE to light touch is intact. Reflexes: B achilles 2+. AROM: L knee 0-8-68 deg. PROM: L knee flex 78 deg. MMT: Not tested at this time. L LE strength is 3/5 as pt is able to lift L leg against gravity. Incision: Surgical incision is healing nicely. Minimal redness noted. Girth: R knee is 42 cm. L knee is 42 cm. - Goals Goal 1:: Increase L knee ROM to 0-120 deg to help with ambulation and stair negotiation. Goal Time Frame: 4-6 Weeks Goal 2:: Reduce L knee pain to 0-2/10 to aid with sleeping. Goal Time Frame: 4-6 Weeks Goal 3:: Increase L LE strength by 1/2 grades to aid with ambulation. Goal Time Frame: 4-6 Weeks Goal 4:: Pt is I with HEP. Goal Time Frame: 4-6 Weeks - Rehabilitation Potential Physical Therapy Diagnosis: Decreased L knee ROM and L LE weakness secondary to L TKA. Rehabilitation Potential: Good - Anticipated Interventions Patient/Client Instruction: Educate patient on: Condition, Plan of Care For the Purpose of:: To improve health and function Therapeutic Exercise to Include: Strength training, Balance training, Passive ROM, Active ROM For the Purpose of:: To decrease pain, To decrease swelling/inflammation, To increase ROM, To improve muscle performance and motor function Manual Therapy Techniques to Include: Mobilization, Passive ROM For the Purpose of:: To decrease pain, To increase ROM Cryotherapy (ice pack, ice massage): Yes For the Purpose of:: To decrease pain Thank you for the opportunity to evaluate your patient. For Medicare and Medicare HMO plans, please review the plan of care and approve it. It will need to be FAXED BACK to us at [phone] for Medicare purposes. Please let me know if there are questions or concerns regarding this plan of care. Physician Signature: Date: <Electronically signed by Jelani Urban PT, ATC> 04/22/18 1414 CC: Chris Arceo DO; OUT [facility]OWN DOCTOR [facility] Signed For Medicare only, by signing this I certify the plan of care. Physicians Signature Date CBC W/DIFF, AUTOMATED Collected: 04/21/2018 Status: F Source: [place] 4:13 PM [facility] TYPE CODE TESTS RESULT OUT OF RANGE REFERENCE UNITS LAB L100.1000 4.4-11.0 K/mm3 Normal WBC 6.9 LAB L100.1200 4.2-5.4 M/mm3 Low RBC 3.48 LAB L100.1300 12.0-15.0 g/dl Low HGB 11.0 LAB L100.1400 37-47 % Low HCT 34.0 LAB L100.1500 81-99 fL Normal MCV 97.7 LAB L100.1600 27.0-32.0 pg Normal MCH 31.6 LAB L100.1700 32-36 g/gl Normal MCHC 32.4 LAB L100.1810 11.6-14.6 % Normal RDW CV 13.9 LAB L100.1820 35.1-43.9 fl High RDW SD 48.3 LAB L100.1900 150-450 K/mm3 Normal PLT 317 LAB L100.2000 6.2-12.0 fl Normal MPV 8.6 LAB L100.2100 47-70 % Normal NEUT% 53.3 LAB L100.2200 19-41 % Normal LY% 38.2 LAB L100.2300 0-10 % Normal MONO% 6.5 LAB L100.2400 0-5 % Normal EO% 1.3 LAB L100.2500 0-1 % Normal BASO% 0.6 LAB L100.2550 0.0-0.9 % Normal IM GRAN % 0.100 Result Comment: IG% - Immature Granulocytes (promyelocytes, myelocytes and metamyelocytes) > 1% indicates that a LEFT SHIFT is Present. LAB L100.2620 2.0-7.7 X10 3/uL Normal Absolute Neut 3.7 LAB L100.2720 0.83-4.51 X10 3/ul Normal Absolute Lymph 2.64 Performed By: #### L100.0100 #### [facility] [address] [place], [address] LIVER PROFILE Collected: 04/21/2018 Status: F Source: [place] 4:13 PM [facility] TYPE CODE TESTS RESULT OUT OF RANGE REFERENCE UNITS LAB L501.1500 6.4-8.2 g/dL Normal T PROT 7.8 LAB L501.1800 3.2-5.0 g/dL Normal ALB 4.0 LAB L501.1950 2.2-4.2 g/dL Normal GLOB 3.8 LAB L501.4100 15-37 U/L Normal AST 21 LAB L501.4305 45-117 U/L Normal ALK P 77 LAB L501.4405 13-56 U/L Normal ALT 22 LAB L501.4600 0.20-1.00 mg/dL Normal T BILI 0.40 LAB L501.4700 0.00-0.30 mg/dL Normal D BILI 0.09 Performed By: #### L500.3400 #### [facility] [address] [place], [address] RE-EVALUATION - PT (1) Observed: 03/05/2018 Status: F Source: [place] 2:06 PM [facility] [place] [facility] [address] [place] [address] Fax REEVALUATION / MEDICARE RECERTIFICATION PHYSICAL THERAPY MR#: [id number] Acct: [id number] Name: ANALISA BEATTY Rep #: [id number] : 1955 62 From: Jelani Urban PT, ATC Referring DrBry: Status: REG RCR Insurance: [employer] SELF PAY INSURANCE ALEXANDER LOYA MD, It has been my pleasure to treat ANALISA BEATTY over the last 20 visits for L TKA. Please see the progress note below for an update on the physical therapy plan of care! Subjective: Mild pain this date. just took advil before coming today Objective/Function: L knee pain is currently 3/10, increases to 5/10 at worst. L knee girth at joint line: 41 cm. L knee MMT: 4-/5 throughout. L knee ROM: 0-111 Plan Plan: Recheck after pt returns from 5 week vacation Goals Goal 1:: Increase L knee ROM to 0-120 deg to help with ambulation and stair negotiation. Goal Time Frame: 4-6 Weeks Goal 2:: Reduce L knee pain to 0-2/10 to aid with sleeping. Goal Time Frame: 4-6 Weeks Goal 3:: Increase L LE strength by 1/2 grades to aid with ambulation. Goal Time Frame: 4-6 Weeks Goal 4:: Pt is I with HEP. Goal Time Frame: 4-6 Weeks Anticipated Interventions Patient/Client Instruction: Educate patient on: Condition, Plan of Care For the Purpose of:: To improve health and function Therapeutic Exercise to Include: Strength training, Balance training, Passive ROM, Active ROM For the Purpose of:: To decrease pain, To decrease swelling/inflammation, To increase ROM, To improve muscle performance and motor function Manual Therapy Techniques to Include: Mobilization, Passive ROM For the Purpose of:: To decrease pain, To increase ROM Cryotherapy (ice pack, ice massage): Yes For the Purpose of:: To decrease pain Please do not hesitate to contact me at [phone] by phone or if you have questions or concerns regarding this new plan of care! Sincerely, Jelani Urban PT, <Electronically signed by Jelani Urban PT, ATC> 03/05/18 1406 CC: Chris Arceo DO; [facility] Signed For Medicare only, by signing this I certify the plan of care. Physicians Signature Date COMP METABOLIC PANEL Collected: 02/20/2018 Status: F Source: [place] 3:20 PM [facility] RE[facility] TYPE CODE TESTS RESULT OUT OF REFERENCE UNITS RANGE LAB TP 6.3-8.0 g/dL Protein, Total 6.7 LAB ALB 3.9-4.9 g/dL Albumin 4.1 LAB CA 8.5-10.2 mg/dL Calcium, Total 9.1 LAB TBIL 0.2-1.3 mg/dL Bilirubin, Total 0.3 LAB ALKP 32-117 U/L Alkaline Phosphatase 66 LAB AST 13-35 U/L AST 25 LAB GLU 74-99 mg/dL Glucose High 117 Result Comment: The [place] Diabetes Association (ADA) provides guidance for cutoff values for fasting glucose and random glucose. The ADA defines fasting as no caloric intake for at least 8 hours. Fas ting plasma glucose results between 100 to 125 mg/dL indicate increased risk for diabetes (prediabetes). Fasting plasma glucose results greater than or equal to 126 mg/dL meet the criteria for diagnosis of diabetes. In the absence of unequivocal hyperglycemia, results should be confirmed by repeat testing. In a patient with classic symptoms of hyperglycemia or hyperglycemic crisis, random plasma glucose results greater than or equal to 200 mg/dL meet the criteria for diagnosis of diabetes. Reference: Standards of Medical Care in Diabetes 2016, [place] [employer] Diabetes Association. Diabetes Care. 2016.39(Suppl 1). LAB BUN 7-21 mg/dL BUN 16 LAB CRET 0.58-0.96 mg/dL Creatinine 0.83 LAB NA 136-144 mmol/L Sodium 143 LAB K 3.7-5.1 mmol/L Potassium 4.6 LAB CL 97-105 mmol/L Chloride 105 LAB CO2 22-30 mmol/L CO2 25 LAB AGAP 9-18 mmol/L Anion Gap 13 LAB ALT 7-38 U/L ALT 14 LAB GFRAA eGFR- Amer. >60 LAB GFRNAA . eGFR-All Other Races >60 Result Comment: eGFR (Estimated GFR) Units of measure: mL/min/1.73 meters squared eGFR is derived from the reexpressed MDRD Study equation using the following parameters: serum creatinine, age, gender and race. The creatinine assay has been calibrated to be traceable to IDMS. An eGFR <60 mL/min/1.73m2 for >3 months is consistent with chronic kidney disease. Refer to KDOQI guidelines for clinical interpretation. In patients with unstable renal function, e.g. those with acute kidney injury, the eGFR may not accurately reflect actual GFR. Performed By: #### CMP, CBCDIF, T3, TSH #### [facility] [address] [place], [place] [address] CBC AND DIFFERENTIAL Collected: 02/20/2018 Status: F Source: [place] 3:20 PM [facility] REPOSITORY TYPE CODE TESTS RESULT OUT OF REFERENCE UNITS RANGE LAB WBC 3.70-11.00 k/uL WBC 5.98 LAB RBC 3.90-5.20 m/uL Low RBC 3.30 LAB HGB 11.5-15.5 g/dL Low Hemoglobin 10.5 LAB HCT 36.0-46.0 % Low Hematocrit 33.6 LAB MCV 80.0-100.0 fL MCV High 101.8 LAB MCH 26.0-34.0 pG MCH 31.8 LAB MCHC 30.5-36.0 g/dL MCHC 31.3 LAB RDWCV 11.5-15.0 % RDW-CV 14.2 LAB PLTCT 150-400 k/uL Platelet Count 319 LAB MPV 9.0-12.7 fL MPV 9.6 LAB ANEUT % Neut% 63.7 LAB AANEUT 1.45-7.50 k/uL Abs Neut 3.80 LAB ALYMP % Lymph% 26.1 LAB AALYMP 1.00-4.00 k/uL Abs Lymph 1.56 LAB AMONO % [place]% 8.4 LAB AAMONO <0.87 k/uL Abs [place] 0.50 LAB AEOS % Eosin% 1.5 LAB AAEOS <0.46 k/uL Abs Eosin 0.09 LAB ABASO % Baso% 0.3 LAB AABASO <0.11 k/uL Abs Baso <0.03 LAB AUNRBC 0 /100 WBC NRBCs 0.0 LAB ABNRBC <0.01 k/uL Absolute nRBC <0.01 LAB DTYP DTYPE Auto Diff Performed By: #### CMP, CBCDIF, T3, TSH #### [facility] [address] [place], [place] [address] T3 Collected: 02/20/2018 Status: F Source: [facility] 3:20 PM [facility] REPOSITORY TYPE CODE TESTS RESULT OUT OF RANGE REFERENCE UNITS LAB T3 79-165 ng/dL T3 132 Performed By: #### CMP, CBCDIF, T3, TSH #### [facility] [address] [place], [place] [address] TSH Collected: 02/20/2018 Status: F Source: [place] 3:[address] [facility] REPOSITORY TYPE CODE TESTS RESULT OUT OF RANGE REFERENCE UNITS LAB TSH 0.400-5.500 uU/mL Low TSH 0.028 Performed By: #### CMP, CBCDIF, T3, TSH #### [facility] [address] [place], [place] [address] POST OP (ORTHOPAEDIC Observed: 02/11/2018 Status: UNK Source: [facility] 4:37 PM HOSPITALS REPOSITORY Chief Complaint POV with Yolande Tyler PA-C for her L TKA surgery 6 wks ago; new xrays obtained-pcs History of Present Illness Analisa Beatty is 62 year old female presents today for a follow- up. She is approximately 6 weeks status post Left TKA 12/16/17. She is doing and progressing well. Rates her pain today at 4 out of 10. Her onl y complain is stiffness and swelling by the end of the day which are normal findings at this stage of recovery. *Active Problems Acquired spondylolisthesis (738.4) (M43.10) Bursitis of hip (726.5) (M70.70) Osteoarthritis of knee (715.36) (M17.10) Added by Problem List Migration; 2013-04-05; Moved to [facility] Jul 05 2013 4:34PM Sciatica (724.3) (M54.30) Spinal stenosis, lumbar (724.02) (M48.061) Surgery, elective (V50.9) (Z41.9) Aftercare following left knee joint replacement surgery (V54.81) (Z47.1) Past Medical History History of hypothyroidism (V12.29) (Z86.39) Family History Family history of cardiac disorder (V17.49) (Z82.49) Social History Never a smoker Social alcohol use Allergies Daypro Recorded By: Ronda Gupta; 09/10/2013 2:05:20 PM Current Meds TraMADol HCl - 50 MG Oral Tablet; TAKE 1 TABLET EVERY 6 HOURS NEEDED FOR BREAKTHROUGH PAIN; Therapy: [id number] to (Evaluate:[id number]) Recorded Rx By: Rere Tyler; Dispense: 7 Days ; #:28 Tablet; Refill: 0;For: Aftercare following left knee joint replacement surgery; HORTENSIA = N; Record MethylPREDNISolone (Brandon) 4 MG TABS; TAKE DIRECTED ON PATIENT INSTRUCTION CARD; Therapy: 05Nov2013 to (Last Rx:05Nov2013) Requested for: 06Nov2013 Ordered Rx By: Alexander Loya; Dispense: 0 Days ; #:1 Tablet; Refill: 0;For: Bursitis of hip; HORTENSIA = N; Verified Transmission to [facility] Hibiclens 4 % External Liquid; USE DIRECTED; Therapy: 11Dec2017 to (Last Rx:11Dec2017) Requested for: 26Dec2017 Ordered Rx By: Alexander Loya; Dispense: 0 Days ; #:1 ML; Refill: 0;For: Surgery, elective; HORTENSIA = N; Verified Transmission to [facility] Mupirocin 2 % External Ointment; for intranasal use as directed twice daily starting 3 days prior to and continuing for 5 days total; Therapy: 11Dec2017 to (Last Rx:11Dec2017) Requested for: 26Dec2017 Ordered Rx By: Alexander Loya; Dispense: 0 Days ; #:1 GM; Refill: 0;For: Surgery, elective; HORTENSIA = N; Verified Transmission to [facility] Atenolol 25 MG Oral Tablet; Therapy: 10Sep2013 to Recorded Dispense: 0 Days ; #: Sufficient Tablet; Refill: 0; HORTENSIA = N; Record; Last Updated By: Ronda Gupta; 09/10/2013 2:06:13 PM Synthroid 75 MCG Oral Tablet; Therapy: 10Sep2013 to Recorded Dispense: 0 Days ; #: Sufficient Tablet; Refill: 0; HORTENSIA = N; Record; Last Updated By: Ronda Gupta; 09/10/2013 2:06:13 PM Physical Exam On exam, incision is healing well, no clinical signs of infection. Neutral alignment, no pain with range of motion. Mild tenderness over the incision. No instability. Operative knee exhibits 3 degrees o f extension and 110 degrees of flexion. Patella tracks midline. Neurovascular intact distally. Results/Data Left Knee X-rays demonstrate well positioned and well fixed components in good alignment. No radiographic evidence of periimplant fracture, radiolucency or dislocation. Xray Knee 3 [id number] crook1 [Jan 29, 2018 4:23PM Alexander Loya] Reason: Unspecified for Xray Knee 3 View Test NameResultFlagReference Xray Knee 3 View1(Report)1 Interpreted by: PARDEEP ZAMAN 01/30/18 23:56 Patient Name: ANALISA BEATTY STUDY: KNEE, 3 VIEWS; 01/30/2018 11:48 am INDICATION: Signs/Symptoms: s/p left tka. COMPARISO N: 12/07/2027 ACCESSION NUMBER(S): [id number] ORDERING CLINICIAN: ALEXANDER LOYA TECHNIQUE: Left knee 3images FINDINGS: There is total knee arthroplasty without hardware complication. There is a sm all joint effusion. No acute fracture is seen. The soft tissues are unremarkable. IMPRESSION: Knee arthroplasty without hardware complication. Transcribed by: [email or web address], User Electronically signed by: [email or web address], User 01/30/18 23:56 1. Amended By: Rere Tyler; Feb 07 2018 8:26 PM EST Diagnoses/Problems Aftercare following left knee joint replacement surgery (V54.81,V43.65) (Z47.1,Z96.652) Status post left knee replacement (V43.65) (Z96.652) *Orders Aftercare following left knee joint replacement surgery Start: TraMADol HCl - 50 MG Oral Tablet; TAKE 1 TABLET 3 TIMES DAILY NEEDED Rx By: Rere Tyler; Dispense: 7 Days ; #:21 Tablet; Refill: 0;For: Aftercare following left knee joint replacement surgery; HORTENSIA = N; Print Rx Aftercare following left knee joint replacement surgery (V54.81) (Z47.1) Provider Impressions The patient came into the office today for follow-up evaluation after left knee replacement surgery. The patient was seen and examined by myself and Dr. Loya. The patient is approximately 6 weeks posto perative and doing well. No complications postoperatively. We talked with patient at length about activity precautions and dislocation precautions in detail. At this time, we can relax the patients perioperative precautions. The patient understands their perman ent precautions. Daily activities may be progressed at the patient's discretion. We will see the patient back in one year with repeat x-rays or sooner as needed. Patient Discussion/Summary At this time, The patient should progress weightbearing and activities as tolerated and can gradually resume a low-impact lifestyle. Please avoid running, jumping, and heavy lifting. Perioperative preca utions, infection related issues and safety concerns were discussed with the patient. End of Encounter Meds Atenolol 25 MG Oral Tablet; Therapy: 10Sep2013 to Recorded Hibiclens 4 % External Liquid; USE DIRECTED; Therapy: 11Dec2017 to (Last Rx:11Dec2017) Requested for: 26Dec2017 Ordered MethylPREDNISolone (Brandon) 4 MG TABS (Medrol (Brandon)); TAKE DIRECTED ON PATIENT INSTRUCTION CARD; Therapy: 05Nov2013 to (Last Rx:05Nov2013) Requested for: 06Nov2013 Ordered Mupirocin 2 % External Ointment; for intranasal use as directed twice daily starting 3 days prior to and continuing for 5 days total; Therapy: 11Dec2017 to (Last Rx:11Dec2017) Requested for: 26Dec2017 Ordered Synthroid 75 MCG Oral Tablet (Levothyroxine Sodium); Therapy: 10Sep2013 to Recorded TraMADol HCl - 50 MG Oral Tablet; TAKE 1 TABLET 3 TIMES DAILY NEEDED; Therapy: 30Jan2018 to (Evaluate:06Feb2018); Last Rx:30Jan2018 Ordered TraMADol HCl - 50 MG Oral Tablet; TAKE 1 TABLET 3 TIMES DAILY; Therapy: 05Feb2018 to (Evaluate:[id number]) Recorded TraMADol HCl - 50 MG Oral Tablet; TAKE 1 TABLET EVERY 6 HOURS NEEDED FOR BREAKTHROUGH PAIN; Therapy: 23Dec2017 to (Evaluate:30Dec2017) Recorded Signatures Electronically signed by : Rere Tyler MD,; Feb 11 2018 4:37PM EST (Author) KNEE, 3 VIEWS Observed: 01/30/2018 Status: F Source: [place] 11:48 AM HOSPITALS REPOSITORY Patient Name: ANALISA BEATTY STUDY: KNEE, 3 VIEWS; 01/30/2018 11:48 am INDICATION: Signs/Symptoms: s/p left tka. COMPARISON: 12/07/2027 ACCESSION NUMBER(S): [id number] ORDERING CLINICIAN: ALEXANDER LOYA TECHNIQUE: Left knee 3images FINDINGS: There is total knee arthroplasty without hardware complication. There is a small joint effusion. No acute fracture is seen. The soft tissues are unremarkable. IMPRESSION: Knee arthroplasty without hardware complication. Electronically signed by: PARDEEP ZAMAN MD RE-EVALUATION - PT (1) Observed: 01/29/2018 Status: F Source: [place] 3:09 PM [facility] [facility] [address] [place] [address] Fax REEVALUATION / MEDICARE RECERTIFICATION PHYSICAL THERAPY MR#: [id number] Acct: [id number] Name: ANALISA BEATTY Rep #: [id number] : 1955 62 From: Jelani Urban PT, ATC Referring DrBry: Status: REG RCR Insurance: [employer] SELF PA[employer] INSURANCE ALEXANDER LOYA MD, It has been my pleasure to treat ANALISA BEATTY over the last 10 visits for L TKA. Please see the progress note below for an update on the physical therapy plan of care! Subjective: I am doing better today. 3 1/2 /10 pain level Objective/Function: L knee pain 3.5/10. L knee ROM 0-110. L knee MMT 4-/5 throughout. Pt troy all Rx well Plan Plan: L knee and calf stretching, AROM, LE/Core strengthening. Goals Goal 1:: Increase L knee ROM to 0-120 deg to help with ambulation and stair negotiation. Goal Time Frame: 4-6 Weeks Goal 2:: Reduce L knee pain to 0-2/10 to aid with sleeping. Goal Time Frame: 4-6 Weeks Goal 3:: Increase L LE strength by 1/2 grades to aid with ambulation. Goal Time Frame: 4-6 Weeks Goal 4:: Pt is I with HEP. Goal Time Frame: 4-6 Weeks Anticipated Interventions Patient/Client Instruction: Educate patient on: Condition, Plan of Care For the Purpose of:: To improve health and function Therapeutic Exercise to Include: Strength training, Balance training, Passive ROM, Active ROM For the Purpose of:: To decrease pain, To decrease swelling/inflammation, To increase ROM, To improve muscle performance and motor function Manual Therapy Techniques to Include: Mobilization, Passive ROM For the Purpose of:: To decrease pain, To increase ROM Cryotherapy (ice pack, ice massage): Yes For the Purpose of:: To decrease pain Please do not hesitate to contact me at [phone] by phone or if you have questions or concerns regarding this new plan of care! Sincerely, Jelani Urban PT, <Electronically signed by Jelani Urban PT, ATC> 01/29/18 1509 CC: Chris Arceo DO; OUT OF TOWN DOCTOR [facility] Signed For Medicare only, by signing this I certify the plan of care. Physicians Signature Date INITAL EVALUATION (1) Observed: 01/07/2018 Status: F Source: [place] - [place] 2:25 PM [facility] [place] [place] [facility] [address] [place] [address] Rd[address] [place] [address] Fax REHABILITATION SERVICES INITIAL EVALUATION MR#: [id number] Acct: [id number] Name: ANALISA BEATTY Rep #: [id number] : 1955 62 From: Jelani Urban PT, ATC Referring DrBry: Status: REG R Insurance: [facility] SELF PAY INSURANCE Patient's Visit Information ANALISA BEATTY is a 62 year old F referred to Physical Therapy by ALEXANDER LOYA MD with a diagnosis of L TKA. Date of Evaluation: 01/07/18 Physical Therapist: Jelani Urban PT, - Visit Plan Frequency: 2-3x /Week Duration: 6 Weeks Plan: L knee and calf stretching, AROM, - Subjective Subjective: Pt is 62 yo retired female s/p L TKA on 12/16/17. Pt notes L knee pain 5/10. Pt is taking tylenol for pain relief. In the last week, L knee pain has reached 7/10. Reports L calf pain and cramping at night. Pt reports the entire L leg starts shaking at night and then the calf begins to cramp at night. Pt reports difficulty sleeping. Pt reports difficulty bending the L knee. Pt walks up stairs one step at a time. - Pain L knee Pain Intensity (Out of 10): 5 Pain Intensity Range: 7 - Objective Neuro: All sensation in B LE to light touch is intact. Reflexes: B achilles 2+. AROM: L knee 0-8-68 deg. PROM: L knee flex 78 deg. MMT: Not tested at this time. L LE strength is 3/5 as pt is able to lift L leg against gravity. Incision: Surgical incision is healing nicely. Minimal redness noted. Girth: R knee is 42 cm. L knee is 42 cm. - Goals Goal 1:: Increase L knee ROM to 0-120 deg to help with ambulation and stair negotiation. Goal Time Frame: 4-6 Weeks Goal 2:: Reduce L knee pain to 0-2/10 to aid with sleeping. Goal Time Frame: 4-6 Weeks Goal 3:: Increase L LE strength by 1/2 grades to aid with ambulation. Goal Time Frame: 4-6 Weeks Goal 4:: Pt is I with HEP. Goal Time Frame: 4-6 Weeks - Rehabilitation Potential Physical Therapy Diagnosis: Decreased L knee ROM and L LE weakness secondary to L TKA. Rehabilitation Potential: Good - Anticipated Interventions Patient/Client Instruction: Educate patient on: Condition, Plan of Care For the Purpose of:: To improve health and function Therapeutic Exercise to Include: Strength training, Balance training, Passive ROM, Active ROM For the Purpose of:: To decrease pain, To decrease swelling/inflammation, To increase ROM, To improve muscle performance and motor function Manual Therapy Techniques to Include: Mobilization, Passive ROM For the Purpose of:: To decrease pain, To increase ROM Cryotherapy (ice pack, ice massage): Yes For the Purpose of:: To decrease pain Thank you for the opportunity to evaluate your patient. For Medicare and Medicare HMO plans, please review the plan of care and approve it. It will need to be FAXED BACK to us at [phone] for Medicare purposes. Please let me know if there are questions or concerns regarding this plan of care. Physician Signature: Date: <Electronically signed by Jelani Urban PT, ATC> 01/07/18 1425 CC: Chris Arceo DO; [facility] DOCTOR [facility] Signed For Medicare only, by signing this I certify the plan of care. Physicians Signature Date BASIC METABOLIC PANEL Collected: 12/18/2017 Status: CANCELLED Source: [place] 12:30 AM HOSPITALS REPOSITORY Order Comment: TEST BASIC METABOLIC PANEL WAS CANCELLED, 12/18/2017 04:30 ?Cancel Reason: Patient Discharged. TYPE CODE TESTS RESULT OUT OF REFERENCE UNITS RANGE LAB GLU(LOINC) GLUCOSE Canceled LAB SOD(LOINC) SODIUM Canceled LAB K(LOINC) POTASSIUM Canceled LAB CHLOR(LOIN C) CHLORIDE Canceled LAB BIC(LOINC) BICARBONATE Canceled LAB ANGAP(LOIN C) ANION GAP Canceled LAB UREA(LOINC ) UREA NITROGEN Canceled LAB CREA(LOINC ) CREATININE Canceled LAB GFRFN(LOIN C) GFR-NON AM. Canceled LAB GFRAA(LOIN C) GFR- AM. Canceled Result Comment: CALCULATIONS OF ESTIMATED GFR ARE PERFORMED USING THE MDRD STUDY EQUATION FOR THE IDMS-TRACEABLE CREATININE METHODS. CLIN CHEM 2007;53:766-72 LAB CA(LOINC) Canceled CALCIUM Performed By: #### BMP #### [facility] [address] [place] [address] CBC AND DIFFERENTIAL Collected: 12/18/2017 Status: CANCELLED Source: [place] 12:30 AM HOSPITALS REPOSITORY Order Comment: TEST CBC AND DIFFERENTIAL WAS CANCELLED, 12/18/2017 04:30 ?Cancel Reason: Patient Discharged. TYPE CODE TESTS RESULT OUT OF REFERENCE UNITS RANGE LAB WBCR(LOINC ) WBC Canceled LAB NRBC(LOINC ) NUCLEATED RBC Canceled LAB RBCCT(LOIN C) RBC Canceled LAB HGB(LOINC) HGB Canceled LAB HCT(LOINC) HCT Canceled LAB MCV(LOINC) MCV Canceled LAB MCHC2(LOIN C) MCHC Canceled LAB PLTCT(LOIN C) PLT Canceled LAB RDWCV(LOIN C) RDW-CV Canceled LAB NEUT(LOINC ) % NEUTROPHIL Canceled LAB IG(LOINC) % AUTOMATED Canceled IMMATURE GRAN Result Comment: Percent differential counts (%) should be interpreted in the context of the absolute cell counts (cells/L). LAB LYMPH(LOINC) % LYMPHOCYTE Canceled LAB MONO(LOINC) % MONOCYTE Canceled LAB EOS(LOINC) % EOSINOPHIL Canceled LAB BASO(LOINC) % BASOPHIL Canceled LAB #NEUT(LOINC) NEUTROPHIL Canceled LAB #LYMP(LOINC) LYMPHOCYTE Canceled LAB #MONO(LOINC) MONOCYTE Canceled LAB #EOS(LOINC) EOSINOPHIL Canceled LAB #BASO(LOINC) BASOPHIL Canceled LAB MDIF(LOINC) DIFFERENTIAL Canceled Performed By: #### CBCDF #### [facility] [address] [place] [address] DISCHARGE SUMMARY Observed: 12/17/2017 Status: COMPLETED Source: [place] 5:42 PM HOSPITALS REPOSITORY Send Summary: Discharge Summary Providers: Provider Role Provider Name ? Referring Ofelia Link ? Attending Alexander Loya ? Primary Chris Donald Note Recipients: Ofelia Link MD - [id number] [] Chris Donald DO - [id number] [] Alexander Loya MD Discharge: Summary: Admission Date: .16-Dec-2017 07:35:00 Discharge Date: 17-Dec-2017 Attending Physician at Discharge: Alexander Loya Admission Reason: Left knee osteoarthritis Final Discharge Diagnoses: Left knee osteoarthritis Procedures: Date: 16-Dec-2017 12:02:00 Procedure Name: Left TKA Condition at Discharge: Satisfactory Disposition at Discharge: Home Health Care - New Vital Signs: T P R BP SpO2 Value 36.9 60 18 121/65 98% Date/Time 12/17 12:00 12/17 12:00 12/17 12:00 12/17 1212/17 12:00 Range (36.3C - 36.9C ) (49 - 64 ) (18 - 18 ) (117 - 133 )/ (59 - 70 ) (94% - 98% ) Highest temp of 36.9 C was recorded at 12/17 4:00 Hospital Course: 62 year-old female who is now s/p left total knee arthroplasty on 12/16/[address] Loya. On the day of surgery, patient was identified in the pre-operative holding area and agreeable to proceed with surgery. Written consent was obtained. Please see operative note for further details of this procedure. Patient received 24 hours of saulo-operative antibiotics. Patient recovered in the PACU before transfer to a regular nursing floor. Patient was started on oxycodone, tylenol, and dilaudid for pain control and Aspirin for DVT prophylaxis. Physical therapy recommended continued recovery in a home care setting for continued physical therapy and wound care. On the day of discharge, patient was afebrile with stable vital signs. Patient was neurovascularly intact at time of discharge. Patient was discharged with prescription of Aspirin 81 BID for DVT prophylaxis for 4 weeks. Patient will follow-up with Dr. Loya in 6 weeks for post-operative visit. Discharge Information: and Continuing Care: Discharge Instructions: Activity: activity as tolerated. May shower.. May let water run over dressing May not return to school/work until follow-up visit with. Dr. Loya May not drive until follow-up visit. No pushing, pulling, or lifting objects greater than 5 pounds until follow-up visit. Weight-bearing Instructions: weight-bearing as tolerated left leg. May remove dressing on POD 7 (12/23) and leave open to air. May remove 1 day earlier or later depending on home care nursing. Nutrition/Diet: regular Wound Care: Wound Site: Left knee Wound Type: surgical incision Home Care Certification: Home Care Agency: [facility] Ordered: RN/SAP BPC ARCHITECT, PT Home Care Services: Home Care Skilled Service: assessment, Rehab (PT/OT/SP eval and treat), wound care Follow Up Appointments: Follow-Up Appointment 01: Physician/Dept/Service: Dr. Loya - Orthopaedic Surgery Reason for Referral: Post op Call to Schedule in: 6 weeks Discharge Medications: Home Medication atenolol 25 mg oral tablet - 1 tab(s) orally once a day Synthroid 75 mcg (0.075 mg) oral tablet - 1 tab(s) orally once a day timed release T3 - orally 2 times a day Restasis - 2 drop(s) in each eye 2 times a day ustekinumab - every 90 days last injection October (next due in January) acetaminophen-oxyCODONE 325 mg-5 mg oral tablet - 1 tab(s) orally every 6 hours x 7 days as needed for pain aspirin 81 mg oral tablet, chewable - 1 tab(s) chewed 2 times a day for DVT prophylaxis docusate sodium 100 mg oral tablet - 1 tab(s) orally 2 times a day for constipation PRN Medication Lab Results - Pending: None Radiology Results - Pending: None Signature/Cosignature/Attestation: Attending Attestation I saw and evaluated the patient. I personally obtained the briones and critical portions of the history and physical exam or was physically present for briones and critical portions performed by the resident/fellow. I reviewed the resident/fellow?s documentation and discussed the patient with the resident/fellow. I agree with the resident/fellow?s medical decision making as documented in the resident?s note. I personally evaluated the patient (as noted in the above attestation) on 17-Dec-2017 Electronic Signatures: Alexander Loya) (Signed 18-Dec-2017 10:07) Authored: Summary Content, Ongoing Care, Signature/Cosignature/Attestation Co-Signer: Send Summary, Summary Content, Ongoing Care, Signature/Cosignature/Attestation Zulma Rogers (Resident)) (Signed 17-Dec-2017 17:43) Authored: Send Summary, Summary Content, Ongoing Care, Signature/Cosignature/Attestation Last Updated: 18-Dec-2017 10:07 by Alexander Loya) DISCHARGE PROFILE2 Observed: 12/17/2017 Status: UNK Source: [place] 7:58 AM HOSPITALS REPOSITORY Discharge Orders: Anticipated Discharge Date: ? Anticipated Discharge Date 17-Dec-2017 Problem List: Additional Dx: ? Osteoarthritis of knee: Catalog Name: Unilateral primary osteoarthritis, unspecified knee Hospital Providers: Provider Role Provider Name ? Primary Chris Donald ? Attending Alexander Loya Activity: activity as tolerated. May shower. May let water run over dressing. May not return to school/work until follow-up visit with Dr. Loya Instructions: May not drive until follow-up visit. No pushing, pulling, or lifting objects greater than 5 pounds until follow-up visit. Weight-bearing Instructions: weight-bearing as tolerated left leg. Other activity instructions: May remove dressing on POD 7 (12/23) and leave open to air. May remove 1 day earlier or later depending on home care nursing. Diet: ? Diet regular Wound Care 1: ? Wound Site Left knee ? Wound Type surgical incision Call Provider If (Homegoing Patients): Breathing harder than normal or having retractions. Temperature is greater than 102 degrees. Chills. Any new concerning symptoms. Hospital Course (Home Care/Gold Form): Hospital Course: ? Hospital Course: include significant abnormal lab values 62 year-old female who is now s/p left total knee arthroplasty on 12/16/[address] Loya. On the day of surgery, patient was identified in the pre-operative holding area and agreeable to proceed with surgery. Written consent was obtained. Please see operative note for further details of this procedure. Patient received 24 hours of saulo-operative antibiotics. Patient recovered in the PACU before transfer to a regular nursing floor. Patient was started on oxycodone, tylenol, and dilaudid for pain control and Aspirin for DVT prophylaxis. Physical therapy recommended continued recovery in a home care setting for continued physical therapy and wound care. On the day of discharge, patient was afebrile with stable vital signs. Patient was neurovascularly intact at time of discharge. Patient was discharged with prescription of Aspirin 81 BID for DVT prophylaxis for 4 weeks. Patient will follow-up with Dr. Loya in 6 weeks for post-operative visit. Home Care Orders: Face to Face Certification: Home Care Services Needed: yes Home Care Agency: [facility] Ordered: RN/SAP BPC ARCHITECT, PT Face to Face Encounter Completed: yes Date of Encounter: 17-Dec-2017 Medical Necessity for Homecare (based on clinical findings): Short-term nursing care is needed to monitor for signs and symptoms of decompensation/adverse events from new surgical wound and anticoagulant regimen. rehab services needed to restore ability to walk safely without support and establish home exercise program. Homebound Status: homebound Homebound Due to:: Patient is temporarily homebound after TKR procedure and is dependent on assistive devices due to muscle weakness and painful ambulation. Face to Face Certification and Home Care Orders Reviewed: I certify that this patient is under my care. I have reviewed the information included in the face to face and certify that the home care services ordered are medically necessary for this patient. Home Care Services: ? Home Care Skilled Service assessment, Rehab (PT/OT/SP eval and treat), wound care ? Assessment: First Home Care Visit day after discharge ? Rehab: First Home Care Visit day after discharge ? Wound Care: First Home Care Visit day after discharge Provider FINAL REVIEW of Orders: Final Review: ? Final Review of Medication Reconciliation and Orders Completed by Physician ? Reviewing Provider Alexander Loya MD at 18-Dec-2017 10:07:04 Appointments: Follow-Up Appointment 01: ? Physician/Dept/Service Dr. Loya - Orthopaedic Surgery ? Reason for Referral Post op ? Call to Schedule in 6 weeks ? ? Comments Please call to confirm/schedule your appointment Electronic Signatures: Alexander Loya) (Signed 18-Dec-2017 10:07) Authored: Home Care Orders, Provider FINAL REVIEW of Orders Co-Signer: Discharge Orders, Hospital Course (Home Care/Gold Form), Home Care Orders, Provider FINAL REVIEW of Orders, Appointments, Gold Form - Photography Intern Summary Zulma Rogers (Resident)) (Signed 17-Dec-2017 08:06) Authored: Discharge Orders, Hospital Course (Home Care/Gold Form), Home Care Orders, Provider FINAL REVIEW of Orders, Appointments, Gold Form - Photography Intern Summary Last Updated: 18-Dec-2017 10:07 by Alexander Loya) DAILY PROGRESS Observed: 12/17/2017 Status: COMPLETED Source: [facility] 6:26 AM HOSPITALS REPOSITORY Service: Orthopedic Surgery Subjective Data: ANALISA BEATTY is a 62 year old Female who is Hospital Day # 2 and POD #1 for Left TKA. Pain controlled. Denies CP, SOB, N/V. Wants to go home. Objective Data: Objective Information: ---- Intake and Output ----- Mn/Dy/Year Time Intake Output Net December 17, 2017 6:00 am 0 375 -375 December 16, 2017 10:00 pm 0 451 -451 December 16, 2017 2:00 pm [phone] The Intake and Output Totals for the last 24 hours are: Intake Output Net [phone] Physical Exam: Constitutional: NAD. Comfortable. Eyes: EOMI. PERRL. ENMT: No otorrhea. No rhinorrhea. MMM. Head/Neck: Neck supple, no apparent injury Respiratory/Thorax: Normal work of breathing Cardiovascular: No peripheral edema. Cap refill <3s. Gastrointestinal: Soft. Non-distended. Genitourinary: No lindquist Musculoskeletal: LLE: - 12/14 DF/PF/EHL - SILT s/s/sp/dp/t distributions - 2+ DP/PT pulse - dressing c/d/i Extremities: SCDs Neurological: AAOx3 Breast: Deferred Psychological: Appropriate mood and behavior Skin: Warm. Dry. Intact. Assessment and Plan: Assessment: POD #1 s/p L TKA on 12/16/[address] Loya. Doing well. WBAT Complete 24 hrs abx DVT PPX: ASA 81mg BID; scds DC'd drain PO pain meds ADAT AM labs PT/OT Dispo: Pending Berlin Espinal M.D. Orthopaedic Surgery, PGY4 [id number] Joints Mathew: Paige Rogers Orthopedic Surgery PGY1 Pager [phone] On-Call Pager: [phone] (call weekdays between 6PM and 8AM and weekends) SCIP Measures: Urinary Catheter Removed Post-Op Day 2: N/A, patient does not have urinary catheter Patient on Beta Lisa Prior to Admission: yes Restarted on Beta Lisa by Post-Op Day 2: yes Prophylactic antibiotics scheduled to be discontinued with 24 hr of anesthesia end time (48 hr for cardiac surgery): yes Signature/Cosignature/Attestation: Attending Attestation I saw and evaluated the patient. I personally obtained the briones and critical portions of the history and physical exam or was physically present for briones and critical portions performed by the resident/fellow. I reviewed the resident/fellow?s documentation and discussed the patient with the resident/fellow. I agree with the resident/fellow?s medical decision making as documented in the resident?s note. I personally evaluated the patient (as noted in the above attestation) on 17-Dec-2017 Electronic Signatures: Alexander Loya) (Signed 18-Dec-2017 10:05) Authored: Signature/Cosignature/Attestation Co-Signer: Service, Subjective Data, Objective Data, Assessment and Plan, SCIP Measures, Signature/Cosignature/Attestation Berlin Espinal (Resident)) (Signed 17-Dec-2017 06:29) Authored: Service, Subjective Data, Objective Data, Assessment and Plan, SCIP Measures, Signature/Cosignature/Attestation Last Updated: 18-Dec-2017 10:05 by Alexander Loya) CBC AND DIFFERENTIAL Collected: 12/17/2017 Status: F Source: [place] 5:19 AM HOSPITALS REPOSITORY TYPE CODE TESTS RESULT OUT OF REFERENCE UNITS RANGE LAB WBCR(LOINC 4.4 - 11.3 x10E9/L ) WBC High 12.7 LAB NRBC(LOINC 0.0-0.0 /100 WBC ) NUCLEATED RBC 0.0 LAB RBCCT(LOIN 4.00 - 5.20 x10E12/L C) Low RBC 3.01 LAB HGB(LOINC) 12.0 - 16.0 g/dL Low HGB 9.5 LAB HCT(LOINC) 36.0 - 46.0 % Low HCT 29.4 LAB MCV(LOINC) 80 - 100 fL MCV 98 LAB MCHC2(LOIN 32.0 - 36.0 g/dL C) MCHC 32.3 LAB PLTCT(LOIN 150 - 450 x10E9/L C) PLT 237 LAB RDWCV(LOIN 11.5 - 14.5 % C) RDW-CV 13.5 LAB NEUT(LOINC 40.0 - 80.0 % ) % NEUTROPHIL 77.0 LAB IG(LOINC) 0.0 - 0.9 % % AUTOMATED 0.3 IMMATURE GRAN Result Comment: Percent differential counts (%) should be interpreted in the context of the absolute cell counts (cells/L). LAB LYMPH(LOINC) 13.0 - % 44.0 % LYMPHOCYTE 14.1 LAB MONO(LOINC) 2.0 - 10.0 % % MONOCYTE 8.6 LAB EOS(LOINC) 0.0 - 6.0 % % EOSINOPHIL 0.0 LAB BASO(LOINC) 0.0 - 2.0 % % BASOPHIL 0.0 LAB #NEUT(LOINC) 1.20 - x10E9/L 7.70 NEUTROPHIL High 9.79 LAB #LYMP(LOINC) 1.20 - x10E9/L 4.80 LYMPHOCYTE 1.80 LAB #MONO(LOINC) 0.10 - x10E9/L 1.00 MONOCYTE High 1.10 LAB #EOS(LOINC) 0.00 - x10E9/L 0.70 EOSINOPHIL 0.00 LAB #BASO(LOINC) 0.00 - x10E9/L 0.10 BASOPHIL 0.00 Performed By: #### CBCDF #### [facility] [address] [place] [address] BASIC METABOLIC PANEL Collected: 12/17/2017 Status: F Source: [facility] 5:19 AM [facility]ITALS REPOSITORY TYPE CODE TESTS RESULT OUT OF REFERENCE UNITS RANGE LAB GLU(LOINC) 74 - 99 mg/dL GLUCOSE High 121 LAB SOD(LOINC) 136 - 145 mmol/L SODIUM 138 LAB K(LOINC) 3.5 - 5.3 mmol/L POTASSIUM 4.3 LAB CHLOR(LOIN 98 - 107 mmol/L C) CHLORIDE 103 LAB BIC(LOINC) 21 - 32 mmol/L BICARBONATE 26 LAB ANGAP(LOIN 10 - 20 mmol/L C) ANION GAP 13 LAB UREA(LOINC 6 - 23 mg/dL ) UREA NITROGEN 12 LAB CREA(LOINC 0.50 - 1.05 mg/dL ) CREATININE 0.66 LAB GFRFN(LOIN >60 mL/min/1.7 C) 3m2 GFR-NON AM. >60 LAB GFRAA(LOIN >60 mL/min/1.7 C) 3m2 GFR- AM. >60 Result Comment: CALCULATIONS OF ESTIMATED GFR ARE PERFORMED USING THE MDRD STUDY EQUATION FOR THE IDMS-TRACEABLE CREATININE METHODS. CLIN CHEM 2007;53:766-72 LAB CA(LOINC) 8.6 - 10.6 mg/dL CALCIUM 8.6 Performed By: #### BMP #### [facility] [address] [place] [address] DISCHARGE PLANNING Observed: 12/16/2017 Status: UNK Source: [facility] 4:07 PM HOSPITALS REPOSITORY Patient Learning: ? Factors that Impact Ability to Learn none(1) Other Learner: ? Learner spouse(1) ? Factors that Impact Ability to Learn none(1) Other Factors: ? Functional Screen: In the recent/past 2-4 weeks, patient or family have noticed no issues that require a rehabilitation consult at this time(1) Discharge Planning: Discharge Plannin12/16/17 Entomology Teacher Note - [place] 6 @160 I met with Analisa and discussed her discharge needs. She lives at home with her [place]. He will be her primary support person during her stay and recovery. He will be at home with her to assist with ADLs. She has a wheeled walker at home. Pt denies any other DME needs. We discussed the possibility of Home health care. She is agreeable to this should PT recommend. She has no preference for Home Health agencies. admission liaison to be tasked for possible agencies. Will continue to follow and will update accordingly. Bola MUNOZ, RN - Entomology Teacher Nursing Note 12/16/172020 Pt lives with her and anticipates being discharged home tomorrow. - Carmelita Albarado RN 12/17/17 Entomology Teacher Note - [place] 6 @ 1601 Analisa is post op day 1 of a left total knee replacement who will be discharged home with home care for PT and nursing. She was given a preference of home care agencies and selected [facility]. Final home care orders were faxed to [facility] via [employer]. Bola MUNOZ, RN - Entomology Teacher Nursing Note 12/17/17 18:58 Analisa was discharged home with her under home care services. IV access was removed. Discharge instructions and prescriptions were reviewed and patient verbalized understanding. TRISTIN wrap was removed from left leg and mepilex was applied to HV drain site. Mepilex silver C/D/I- JEFF hose applied to surgical leg (already one on right leg) and extra pair of JEFF hose were given. She left with all of her belongings. Tsering Longo RN Final Disposition/Discharge: Disposition/Discharge Information: Discharge/Transfer Information: ? Discharge/Transfer Date/Time 17-Dec-2017 15:25 ? Discharged Accompanied By spouse ? Discharge Mode wheelchair ? Transportation Method private car ? Final Disposition Home Health Care - New Electronic Signatures: Carmelita Albarado ([place]) (Signed 16-Dec-2017 20:21) Authored: Discharge Planning Note Berlin Humphries (RN) (Signed 17-Dec-2017 16:04) Authored: Discharge Planning Note Tsering Longo ([place]) (Signed 17-Dec-2017 19:04) Authored: Discharge Planning Note, Final Disposition/Discharge Last Updated: 17-Dec-2017 19:04 by Tsering Longo ([place]) References: 1. Data Referenced From Admission Risk Screen - Adult 12/16/2017 2:02 PM PATIENT PROFILE - Observed: 12/16/2017 Status: UNK Source: [facility] 2:06 PM HOSPITALS REPOSITORY Profile: Initial Info: How to be Addressed Analisa(1) Spoken Language Preferred Indonesian (1) Are you currently using the Personal Electronic Health Record or [employer] no (1) Stated Reason for Admission knee surgery Arrived From OR Patient Belongings remains with patient Patient Belongings Remaining with Patient clothing; medication(s); vision aids Medications Brought to Hospital yes Medication Disposition bedside, T3 General Health: Weight in kg 69.3 kilogram(s) Weight in lbs 152.7 pound(s) Height in cm 162 centimeter(s) BMI (kg/m2) 26.406 square meter Weight Method actual (measured) Scale Type standing Height Method stated Blood Avoidance/Restrictions none(1) Previous Transfusion Reaction no(1) RSP Based Care: How would you like to participate in your care? brought apricots for constipation What is the number one concern for you during this hospitalization? need to take T3 What is the most important thing we can do to support you during this hospitalization? ensure I get my medications (tries to avoid additional medications but wants to stay on top of the pain) Is there anything we need to know to best care for you? not at this time Comment has a two year old grand daughter who lives in [place] Substance: Current or Former Substance Use never: Cigarette/Tobacco(1), Street Drugs(1) YES: Alcohol Alcohol Use Status current alcohol Alcohol Amount 1-2 drinks Alcohol Type wine Problems Related to Alcohol Use no Health Mgmt: Symptoms/Conditions Managed at Home cardiovascular; musculoskeletal; endocrine; chronic pain; behavioral health Behavioral Health Symptoms/Conditions anxiety Behavioral Health Management managed Cardiovascular Symptoms/Conditions hypertension Cardiovascular Management managed Endocrine Management managed Musculoskeletal Symptoms/Conditions osteoarthritis; back pain Musculoskeletal Management managed Chronic Pain Management Strategies positioning Chronic Pain Management not managed Endocrine Symptoms/Conditions thyroid disease; hypothyroid Relationship/Environ: Primary Source of Support/Comfort spouse; child(bennett) Lives With spouse Living Arrangements house Resource/Environmental Concerns has stairs Anticipated Transition To home with help/services Services Anticipated at Transition home health care Significant Indicators Complete Information Review: ? Allergies, Home Meds and Significant Events have been Reviewed and Verified with Patient/Family yes ALLERGY, INTOLERANCE, ADVERSE EVENT: Allergies: ? Daypro: Drug, Hives/Urticaria, Active ? Onions: Food, Unknown, Active Electronic Signatures: Carmelita Albarado ([place]) (Signed 16-Dec-2017 20:19) Authored: Profile, Additional Information Last Updated: 16-Dec-2017 20:19 by Carmelita Albarado ([place]) References: 1. Data Referenced From Patient Profile - Preop v2 12/16/2017 8:23 AM ADMISSION RISK SCREEN Observed: 12/16/2017 Status: UNK Source: [facility] 2:02 PM HOSPITALS REPOSITORY Allergies: Allergies: ? Daypro: Hives/Urticaria ? Onions: Unknown Patient Verification: ? New W ID Band Applied in my Department no ? Type of ID Patient is Wearing W wristband, but not applied here ? Patient Transferred from Other Facility ([facility], [facility],etc) no ? Patient Identity Verified By patient ? ID Band FULL Name, include Middle, spelling matches patient's ID used for verification yes ? ID Band Matches Patient ID used for Verfication yes ? ID Band MRN Matches EMR MRN yes Advance Directive: ? Advance Directive Medical no (1) ? Advance Directive Information Given patient/family declined (1) ? Advance Directive Mental Health not applicable Falls Screen: Type of Assessment admission Moderate Risk Factors altered elimination, patient care equipment (scds, iv?s, chest tubes, lindquist, etc) High Risk Factors gait instability, symptoms due to meds (sedatives, hypnotics, new diuretics and new laxatives) Risk for Injury Associated with Fall risk of surgical complications post surgery (recent abdominal, thoracic surgery, lower limb amputation) Fall Risk Conclusion high falls risk with risk for associated injury [place] Safety Interventions WDL *orient to call system *instruct to call for assistance before getting out of bed *non-slip footwear when patient is out of bed *call fajardo in reach *personal items and telephone in reach *physically safe environment (no spills or clutter) *bed in lowest position with wheels locked *appropriate side rails in place *room/bathroom lighting operational, light cord in reach *appropriate signage on door Fall and Injury Risk Interventions supervised toileting (mandatory for all high risk patients), exit (bed/chair) alarms (mandatory for all high risk patients), collaborate with team for PT/OT consult/ambulatory aids, educate pt/family, monitor med side effects, consult Pharmacy, individualized toileting schedule, do not leave patient unattended while in the bathroom Family Violence Screen: ? Are you or have you been threatened or abused physically, emotionally, or sexually by anyone? no ? Do you feel UNSAFE going back to the place where you are living? no ? Clinical assessment: Are there any apparent signs of injuries/behaviors that could be related to abuse/neglect no ? Social Service Consult for abuse/neglect needed this visit? no Functional screen: ? Functional Screen: In the recent/past 2-4 weeks, patient or family have noticed no issues that require a rehabilitation consult at this time Learning Assessment (Patient): ? Patient is Able to be Assessed for Learning yes ? Factors Influencing Readiness to Learn interest in learning ? Factors that Impact Ability to Learn none ? Devices/Methods Used to Communicate none ? Learning Preferences individual instruction; verbal instruction ? Cultural Considerations none ? Developmental Considerations none ? Baptism Considerations none Learning Assessment (Other Learner): ? Other learner available yes... ? Learner spouse ? Factors Influencing Readiness to Learn interest in learning ? Factors that Impact Ability to Learn none ? Devices/Methods Used to Communicate none ? Learning Preferences individual instruction ? Cultural Considerations none ? Developmental Considerations none ? Baptism Considerations none Suicide/Depression Screen: ? During the past month, have you often been bothered by feeling down, depressed or hopeless? no (1) ? During the past month, have you often had little interest or pleasure in doing things? no (1) ? Have you had any thoughts of harming yourself? no (1) ? Have you had any thoughts of harming anyone else? no (1) Adult Nutrition Screen: ? Have you recently lost weight without trying no ? Have you been eating poorly because of a decreased appetite no ? MST Score 0 ? Risk MST = 0 or 1 Not at risk. Eating well with little or no weight loss ? Nutrition Consult needed this visit? no ? Can Patient Participate in Room Service? yes ? Patient requires Paper Dishes/Plastic Utensils no Pain Screen: ? Pain Scale numerical 0-10 (1) ? Pain Scale Education teaching provided (1) ? Current Pain Level 8 = Severe ? Acceptable Pain Level 4 = Moderate ? Expression of Pain (nonverbal) none(1) ? Lifestyle Changes/Adaptations in Response to Pain no change(1) ? Barriers to Reporting Pain none(1) ? Chronic Pain yes (1) ? Chronic Back pain location back(1) Spiritual Screen: ? Are there any cultural, spiritual, amish practices/values/needs that are important for us to know? no CAGE: Is this an injured patient at a Trauma Center ([facility] [place] [facility]): no Vaccinations: Vaccination - Influenza Vaccination Screen: ? Is it flu season? (between and ) No Vaccination - Pneumonia Vaccination Screen: ? Patient has received a previous pneumonia vaccine: no/unknown... ? Immunocompetent persons with underlying chronic conditions or reside in intermediate care facilities none of these conditions ? Persons with Functional or Anatomic Asplenia none of these conditions ? Immunocompromised Persons none of these conditions ? Pneumonia vaccine NOT indicated due to: patient DOES NOT have a condition that indicates vaccination Mickey: Skin - Mickey Scale: ? Mickey: Sensory Perception (response to environment) (4) no impairment ? Mickey: Moisture (degree skin exposed to moisture) (4) rarely moist ? Mickey: Activity (ability to walk) (2) chairfast ? Mickey: Mobility (amount/control of body movement) (3) slightly limited ? Mickey: Nutrition (quality of food intake) (3) adequate ? Mickey: Friction and Shear (2) potential problem ? Mickey: Score 18 ? Skin Intervention Orders (Nursing orders will be generated) elevate heels, up in chair < 1 hr intervals, turn side to side every 2 hrs, assess for therapeutic equipment, assess pressure points, hygiene care, toilet/ADL every 2 hrs awake, toilet/ADL every 4 hrs asleep, educate prevent/treat pressure ulcer Significant Indicatiors: Significant Indicators: Complete Pressure Injury: Pressure Injury Present on Admission no Electronic Signatures: Carmelita Albarado ([place]) (Signed 16-Dec-2017 14:05) Authored: Admission Risk Screens, Vaccinations, Mickey, Pressure Injury Last Updated: 16-Dec-2017 14:05 by Carmelita Albarado ([place]) References: 1. Data Referenced From Patient Profile - Preop v2 12/16/2017 8:23 AM POST OPERATIVE NOTE - Observed: 12/16/2017 Status: COMPLETED Source: [place] 12:02 PM HOSPITALS REPOSITORY Post Operative Note: PreOp Diagnosis: Left Knee Osteoarthritis Post-Procedure Diagnosis: Left Knee Osteoarthritis Procedure: Left TKA Surgeon: Shalini Resident/Fellow/Other Launch Manager: Teddy Anesthesia: general Estimated Blood Loss (mL): 25cc Specimen: no Complications: none Findings: OA Patient Returned To/Condition: pacu/stable Drains and/or Catheters: hemovac x 1 Signature/Cosignature/Attestation: Attending Attestation I was present for briones portions of the procedure and the procedure lasted longer than 5 minutes. Electronic Signatures: Alexander Loya) (Signed 16-Dec-2017 12:33) Authored: Signature/Cosignature/Attestation Co-Signer: Post Operative Note, Signature/Cosignature/Attestation Berlin Espinal (Resident)) (Signed 16-Dec-2017 12:03) Authored: Post Operative Note, Signature/Cosignature/Attestation Last Updated: 16-Dec-2017 12:33 by Alexander Loya) ABO/RH GROUP TEST Collected: 12/16/2017 Status: F Source: [place] 10:10 AM HOSPITALS REPOSITORY TYPE CODE TESTS RESULT OUT OF RANGE REFERENCE UNITS LAB ABORH(LOINC ) ABO TYPE A LAB RH(LOINC) RH TYPE POS Performed By: #### VERAB #### [facility] [id number] [place] [address] HISTORY AND PHYSICAL Observed: 12/16/2017 Status: COMPLETED Source: [place] - SURGICAL UPDATE < 8:33 AM HOSPITALS REPOSITORY 30 DAYS History & Physical Reviewed: I have reviewed the History and Physical dated: 19-Nov-2017 History and Physical reviewed and relevant findings noted. Patient examined to review pertinent physical findings.: No significant changes Home Medications Reviewed: no changes noted Allergies Reviewed: no changes noted This patient has been seen and discussed with the attending physician responsible for performing the procedure: yes Signatures/Attestation/Certification: Attending Attestation I saw and evaluated the patient. I personally obtained the briones and critical portions of the history and physical exam or was physically present for briones and critical portions performed by the resident/fellow. I reviewed the resident/fellow?s documentation and discussed the patient with the resident/fellow. I agree with the resident/fellow?s medical decision making as documented in the resident?s note. I personally evaluated the patient (as noted in the above attestation) on 16-Dec-2017 Attending Provider ? Inpatient Certification Statement I certify this patient?s need for inpatient care based on the above documentation including; the order to admit as inpatient, the anticipated length of stay, diagnosis, problem list and plan of care, and discharge plan. Electronic Signatures: Alexander Loya) (Signed 16-Dec-2017 12:33) Authored: Signatures/Attestation/Certification Co-Signer: History & Physical Reviewed, Signatures/Attestation/Certification Berlin Espinal (Resident)) (Signed 16-Dec-2017 08:33) Authored: History & Physical Reviewed, Signatures/Attestation/Certification Last Updated: 16-Dec-2017 12:33 by Alexander Loya) PATIENT PROFILE - Observed: 12/16/2017 Status: UNK Source: [place] PREOP V2 8:23 AM HOSPITALS REPOSITORY Profile: Initial Info: How to be Addressed Analisa Spoken Language Preferred Indonesian Are you currently using the Personal Electronic Health Record or [facility] no Are you interested in learning more about [facility] for the management of your health not at this time Stated Reason for Admission left knee replacement Primary Contact Name and Number Lisette varma - [phone] Limitations on Visitors/Phone Calls none Patient Belongings see preop checklist Medications Brought to Hospital no General Health: Weight in kg 69.3 kilogram(s) Weight in lbs 152.7 pound(s) Weight Method actual (measured) Scale Type standing Height in cm 162 centimeter(s) Height Method stated BMI (kg/m2) 26.406 square meter Patient or Family Member Reaction to Anesthesia no previous reaction Blood Avoidance/Restrictions none Previous Transfusion Reaction no Health Mgmt: Symptoms/Conditions Managed at Home cardiovascular; musculoskeletal; endocrine; behavioral health Behavioral Health Symptoms/Conditions anxiety Cardiovascular Symptoms/Conditions hypertension Endocrine Symptoms/Conditions Comment hypthyroid Musculoskeletal Symptoms/Conditions osteoarthritis; back pain Barriers to Managing Health none Relationship/Environ: Lives With spouse Living Arrangements house Resource/Environmental Concerns none Anticipated Transition To home Services Anticipated at Transition rehabilitation services Substance: Current or Former Substance Use never: Cigarette/Tobacco, Alcohol, Street Drugs Risk Screens: Advance Directive Medical no Advance Directive Information Given patient/family declined Advance Directive Mental Health not applicable During the past month, have you often been bothered by feeling down, depressed or hopeless? no During the past month, have you often had little interest or pleasure in doing things? no Have you had any thoughts of harming yourself? no Have you had any thoughts of harming anyone else? no Patient is Able to be Assessed for Learning yes Factors Influencing Readiness to Learn acuteness of illness Factors that Impact Ability to Learn none Devices/Methods Used to Communicate none Learning Preferences audio Cultural Considerations none Developmental Considerations none Baptism Considerations none Other learner available no Falls Risk Patient location auto qualifies him/her for HIGH RISK. Are there any cultural, spiritual, amish practices/values/needs that are important for us to know? no Do you want a visit/item from [facility]? no Would you like your Hostage Negotiator/Spark Plug Tester notified? no Pain Scale numerical 0-10 Pain Scale Education teaching provided Current Pain Level 8 = Severe Acceptable Pain Level 4 = Moderate Expression of Pain (nonverbal) none Lifestyle Changes/Adaptations in Response to Pain no change Barriers to Reporting Pain none Chronic Pain yes Chronic Back pain location back Information Review: ? Allergies, Home Meds and Significant Events have been Reviewed and Verified with Patient/Family yes Allergy, Intolerance, Adverse Event: Allergies: ? Daypro: Drug, Hives/Urticaria, Active ? Onions: Food, Unknown, Active Significant Events: 16-Dec-2017 ? anxiety: Past Medical History, Active 16-Dec-2017 ? chronic back pain: Past Medical History, Active 16-Dec-2017 ? hypothyroid: Past Medical History, Active 16-Dec-2017 ? osteoarthritis: Past Medical History, Active 16-Dec-2017 ? HTN: Past Medical History, Active Electronic Signatures: Kelly Garrison (ERIC) (Signed 16-Dec-2017 08:36) Authored: Profile, Additional Information Jacki You (ERIC) (Signed 16-Dec-2017 09:12) Authored: Profile Last Updated: 16-Dec-2017 09:12 by Jacki You (ERIC) PREOP CHECKLIST Observed: 12/16/2017 Status: UNK Source: [place] 8:10 AM HOSPITALS REPOSITORY Preop Checklist: Preop Checklist: ? Arrival Date 16-Dec-2017 ? Procedure Type left total knee replacement ? NPO Status 16-Dec-2017 00:00 ? ID Band On yes ? Allergy Band yes ? Consent Signed pending ? H&P Complete pending ? Anesthesia Assessment Completed pending ? EKG Performed see results tab ? Chest X-Ray Performed see results tab ? Chlorhexadine Bath Given completed at home ? Soap and water bath with hair shampoo the night before surgery not applicable ? SCD's Applied sent to OR ? JEFF Hose Applied yes ? Dentures not applicable ? Prosthetics not applicable ? Hearing Aids not applicable ? Valuables Secured not applicable ? Glasses / Contacts sent with family ? Bowel Prep no Cardiovascular Assessment: ? Apical regular ? Radial Pulses palpable ? Pedal Pulses palpable ? Extremities warm Respiratory Assessment: ? Respirations unlabored regular ? Air Exchange equal, good ? Breath Sounds clear Neurological Assessment: ? Level of Consciousness alert, oriented ? Mobility moves all extremities ? Able to Express Self yes ? Age Appropriate yes ? Emotional Status calm Preop Education: ? Surgical Site Infection Prevention yes ? Pain Scales and Management yes Language / Communication: ? Language / Communication Indonesian Electronic Signatures: Kelly Garrison (ERIC) (Signed 16-Dec-2017 08:11) Authored: Preop Checklist Jacki You) (Signed 16-Dec-2017 09:12) Authored: Preop Checklist Last Updated: 16-Dec-2017 09:12 by Jacki You (ERIC) OPERATIVE REPORT Observed: 12/16/2017 Status: UNK Source: [place] 12:00 [place] [address] Patient Name: ANALISA BEATTY : 1955 Date of Service: 12/16/2017 Patient Location: [facility] [id number] Patient Type: I Surgeon: Alexander Loya MD Report Type: Operative Reports PREOPERATIVE DIAGNOSIS: Osteoarthritis, left knee. POSTOPERATIVE DIAGNOSIS: Osteoarthritis, left knee. OPERATION/PROCEDURE: Cemented Highland triathlon posterior stabilized TKR. SURGEON: Alexander Loya MD SERVICE TESTER(S): Berlin Espinal MD ANESTHESIA: Spinal plus adductor canal block plus local periarticular injection with 30 mL of 0.25% Marcaine, 30 mL normal saline, 30 mg Toradol. SERVICE: Ortho. DIVISION: [facility]. CLINICAL NOTE/INDICATIONS: The patient has had significant symptoms related to their knee for more than 3 months. Prior to surgery, I talked with the patient at length about risks, limitations, benefits and alternatives to total knee replacement. Under my care or the care of previous providers, the patient has had a reasonable trial of non-operative, conservative treatment for their knee problem including several of the following: NSAIDS, Tylenol or other analgesics, cortisone injections or viscosupplementation, activity modification and activity restriction or use of assistive devices. These previous treatments have not provided the patient with durable relief of their symptoms. Due to the severity of the patient's symptoms, the patient is not an appropriate candidate for physical therapy at this time. Despite the above, the patient has had pain and symptomatic functional impairment that either interferes with their sleep or ADLs and quality of life. Based on my professional medical opinion as a board certified orthopedic surgeon and an expert in joint replacement surgery, there is no additional non-operative, conservative treatment that will provide the patient with reasonable pain relief and improvement in ambulation, function and quality of life and joint replacement surgery is a medical necessity. ADDITIONAL PROCEDURE INFORMATION: SURGICAL APPROACH: A standard medial parapatellar arthrotomy. INTRAOPERATIVE FINDINGS: The patient had advanced arthritis in the medial and patellofemoral compartment. She was somewhat osteopenic. FEMORAL COMPONENT: Highland triathlon posterior stabilized size 4. FEMORAL RESECTION: 6 degrees of valgus. TIBIAL COMPONENT: Highland triathlon posterior stabilized size 3. ARTICULAR SURFACE: Highland triathlon posterior stabilized, 11 mm height. PATELLAR COMPONENT: Highland triathlon asymmetrical all poly 32 mm. SOFT TISSUES RELEASES: Consisted of the posterior cruciate ligament and the deep MCL. DRAINS: Medium large Hemovac. SKIN CLOSURE: Running 4-0 subcuticular Monocryl with Steri-Strips. COMPLICATIONS: None. TECHNIQUE USED: The patient was taken to the OR and transferred from their hospital bed to the OR table. Satisfactory anesthesia was obtained. Administration of prophylactic IV antibiotics in accordance with current SCIP guidelines was performed and verified. A time-out was taken, and surgical site was marked pre-op. A well-padded tourniquet was placed high up on the thigh. The operative leg was then prepped and draped in the usual sterile manner in a free fashion. The planned skin incision was then marked with a marking pen. The leg was elevated and exsanguinated with an Esmarch bandage. Tourniquet was then inflated. Planned skin incision was then incised with a scalpel. I then dissected down through the subcutaneous layer to the extensor mechanism. A standard medial parapatellar arthrotomy was made. An initial medial soft tissue release was performed to allow for exposure of the knee and correction of the patients pre-operative varus deformity. The knee was flexed upwards as the patella was everted as necessary and dislocated laterally. The fat pad and meniscal remnants were excised and the cruciate ligaments were carefully released. A drill hole was then made in the distal femur 1 cm anterior to the PCL insertion. The medullary canal was then thoroughly irrigated. The IM guide was inserted into the distal femur, set at the resection angle noted above. The distal femoral cut was completed. Femoral condyles were sized and the corresponding cutting block was selected. The epicondylar axis and the AP axis were determined and marked. The femoral cutting block was then secured to the distal femur and the remaining distal femoral cuts were then completed in sequential fashion. After finishing all of our femoral cuts, we subluxed the tibia forwards. Retractors were carefully placed. The extramedullary tibial cutting guide was positioned over the proximal tibia and pinned in appropriate alignment. A conservative initial tibial resection was made. The tibial cut was checked and fine tuned until it was indeed perpendicular to the long axis of the tibia. The knee joint was then distracted in flexion. Osteophytes were debrided from the posterior femoral condyles and meniscal remnants were excised posteriorly. We then subluxed the tibia forwards. The cut tibial surface was sized and a corresponding tibial template was pinned in appropriate position and alignment. The central stem was prepared with the drill and the stem punch. The trial components were placed. Soft tissue balance was assessed. Additional medial soft tissue release was performed until we had full extension of the knee and a well balanced knee in extension and flexion. We then addressed the patella. The AP thickness of the patella was assessed and the patella was resected with the patellar reamer. The cut patellar surface was sized and finished with the corresponding drilling template and the patellar drill. We placed the patellar trial and ROM and patellar tracking were assessed. The trial components were then removed from the knee. Bony surfaces were irrigated with the Pulsavac, thoroughly dried, and then finger-packed with bone cement. Tibial, femoral, and patellar components were then cemented in place. Excess cement was debrided from around the implants. The knee was then reduced with the final PS trial and held in extension until the cement hardened. Final assessment of alignment, soft tissue balance, and stability was performed. The posterior, medial, and lateral capsule, extensor mechanism and arthrotomy were infiltrated with a mixture of the above periarticular local anesthetics. The final articular surface was placed. Wounds were irrigated. Tourniquet was then released. Pressure was held on the wound. Careful hemostasis was obtained. Wounds were thoroughly irrigated once again. The extensor mechanism was then closed with multiple sutures of #2 Tycron and #1 Vicryl suture tied in [id number] fashion. Subcu was closed with interrupted 2-0 Vicryl. The skin was then closed as noted above. Wounds were washed and dried. A standard postop dressing was placed. Alexander Loya MD EST TT: 12/16/2017 10:06 PM EST DICTATION NUMBER: [id number] [facility] JOB NUMBER: [id number] CC: CHRIS DONALD Electronically Signed by Dr. Alexander Loya 12/29/2017 01:08:10 PM JOINT SURVEY, 1 Observed: 12/06/2017 Status: F Source: [facility] [place] 1 OR MORE 12:15 PM HOSPITALS REPOSITORY JOINT(S) Patient Name: ANALISA BEATTY STUDY: KNEE, 3 VIEWS; BN JOINT SURVEY, 1 VIEW 1 OR MORE JOINT(S); 12/06/2017 11:48 am; 12/06/2017 12:15 pm three views of the left knee plus single long view lower extremity radiograph INDICATION: SGY 5 7 LEFT TKR SHALINI. COMPARISON: June 27 2017 ACCESSION NUMBER(S): [id number]; [id number] ORDERING CLINICIAN: ALEXANDER LOYA FINDINGS: Osteoarthritis seen, particularly in the medial compartment of the left knee. There is no evidence of fracture. The alignment is normal. IMPRESSION: Osteoarthritis left knee particularly medial compartment. Electronically signed by: JESSICA HERNADEZ MD BN KNEE; 3 VIEWS Observed: 12/06/2017 Status: F Source: [place] 11:48 AM HOSPITALS REPOSITORY Patient Name: ANALISA BEATTY STUDY: KNEE, 3 VIEWS; BN JOINT SURVEY, 1 VIEW 1 OR MORE JOINT(S); 12/06/2017 11:48 am; 12/06/2017 12:15 pm three views of the left knee plus single long view lower extremity radiograph INDICATION: SGY 5 7 LEFT TKR SHALINI. COMPARISON: June 27 2017 ACCESSION NUMBER(S): [id number]; [id number] ORDERING CLINICIAN: ALEXANDER LOYA FINDINGS: Osteoarthritis seen, particularly in the medial compartment of the left knee. There is no evidence of fracture. The alignment is normal. IMPRESSION: Osteoarthritis left knee particularly medial compartment. Electronically signed by: JESSICA HERNADEZ MD CBC AND DIFFERENTIAL Collected: 12/06/2017 Status: F Source: [place] 11:21 AM HOSPITALS REPOSITORY TYPE CODE TESTS RESULT OUT OF REFERENCE UNITS RANGE LAB WBCR(LOINC 4.4 - 11.3 x10E9/L ) WBC 8.2 LAB NRBC(LOINC 0.0-0.0 /100 WBC ) NUCLEATED RBC 0.0 LAB RBCCT(LOIN 4.00 - 5.20 x10E12/L C) Low RBC 3.86 LAB HGB(LOINC) 12.0 - 16.0 g/dL HGB 12.1 LAB HCT(LOINC) 36.0 - 46.0 % HCT 38.0 LAB MCV(LOINC) 80 - 100 fL MCV 98 LAB MCHC2(LOIN 32.0 - 36.0 g/dL C) Low MCHC 31.8 LAB PLTCT(LOIN 150 - 450 x10E9/L C) PLT 318 LAB RDWCV(LOIN 11.5 - 14.5 % C) RDW-CV 13.6 LAB NEUT(LOINC 40.0 - 80.0 % ) % NEUTROPHIL 65.5 LAB IG(LOINC) 0.0 - 0.9 % % AUTOMATED 0.2 IMMATURE GRAN Result Comment: Percent differential counts (%) should be interpreted in the context of the absolute cell counts (cells/L). LAB LYMPH(LOINC) 13.0 - 44.0 % % LYMPHOCYTE 26.0 LAB MONO(LOINC) 2.0 - 10.0 % % MONOCYTE 7.1 LAB EOS(LOINC) 0.0 - 6.0 % % EOSINOPHIL 0.7 LAB BASO(LOINC) 0.0 - 2.0 % % BASOPHIL 0.5 LAB #NEUT(LOINC) 1.20 - 7.70 x10E9/L NEUTROPHIL 5.34 LAB #LYMP(LOINC) 1.20 - 4.80 x10E9/L LYMPHOCYTE 2.12 LAB #MONO(LOINC) 0.10 - 1.00 x10E9/L MONOCYTE 0.58 LAB #EOS(LOINC) 0.00 - 0.70 x10E9/L EOSINOPHIL 0.06 LAB #BASO(LOINC) 0.00 - 0.10 x10E9/L BASOPHIL 0.04 Performed By: #### CBCDF #### [facility] [address] [place] [address] BASIC METABOLIC PANEL Collected: 12/06/2017 Status: F Source: [place] 11:21 AM [facility]OSPITALS REPOSITORY TYPE CODE TESTS RESULT OUT OF REFERENCE UNITS RANGE LAB GLU(LOINC) 74 - 99 mg/dL GLUCOSE 83 LAB SOD(LOINC) 136 - 145 mmol/L SODIUM 141 LAB K(LOINC) 3.5 - 5.3 mmol/L POTASSIUM 4.6 LAB CHLOR(LOIN 98 - 107 mmol/L C) CHLORIDE 104 LAB BIC(LOINC) 21 - 32 mmol/L BICARBONATE 29 LAB ANGAP(LOIN 10 - 20 mmol/L C) ANION GAP 13 LAB UREA(LOINC 6 - 23 mg/dL ) UREA NITROGEN 12 LAB CREA(LOINC 0.50 - 1.05 mg/dL ) CREATININE 0.62 LAB GFRFN(LOIN >60 mL/min/1.7 C) 3m2 GFR-NON AM. >60 LAB GFRAA(LOIN >60 mL/min/1.7 C) 3m2 GFR- AM. >60 Result Comment: CALCULATIONS OF ESTIMATED GFR ARE PERFORMED USING THE MDRD STUDY EQUATION FOR THE IDMS-TRACEABLE CREATININE METHODS. CLIN CHEM 2007;53:766-72 LAB CA(LOINC) 8.6 - 10.6 mg/dL CALCIUM 9.7 Performed By: #### BMP #### [facility] [address] [place] [address] COAGULATION SCREEN Collected: 12/06/2017 Status: F Source: [place] 11:21 AM HOSPITALS REPOSITORY TYPE CODE TESTS RESULT OUT OF REFERENCE UNITS RANGE LAB PT(LOINC) 9.8 - 12.7 sec PROTHROMBIN TIME 11.0 LAB INR(LOINC) 0.9 - 1.1 PT, INR 1.0 LAB APTT(LOINC 25 - 36 sec ) APTT 29 Result Comment: THE APTT IS NO LONGER USED FOR MONITORING UNFRACTIONATED HEPARIN THERAPY. FOR MONITORING HEPARIN THERAPY, USE THE HEPARIN ASSAY. Performed By: #### COAGS #### [facility] [address] [place] [address] TYPE + SCREEN Collected: 12/06/2017 Status: F Source: [place] 11:21 AM HOSPITALS REPOSITORY TYPE CODE TESTS RESULT OUT OF REFERENCE UNITS RANGE LAB ABORH(LOINC ) ABO TYPE A LAB RH(LOINC) RH TYPE POS LAB ABSC(LOINC) ANTIBODY NEG SCREEN Performed By: #### T+S #### [facility] [address] [place] [address] Observed: 12/06/2017 Status: F Source: [place] STAPH/MRSA SCREEN 11:21 AM HOSPITALS REPOSITORY PATIENT: ANALISA BEATTY LOCATION: [facility]#: [id number] : 51 AGE: SEX: F ORDERED BY: ALEXANDER LOYA SOURCE: ANTERIOR NARES COLLECTED: 12/06/17 11:21 ANTIBIOTICS AT KT.: RECEIVED : 12/06/17 14:15 SITE: Nasal R E S U L T S STAPH/MRSA SCREEN FINAL 12/08/17 08:05 NO Staphylococcus aureus ISOLATED. Performed By: #### STAPH #### [facility] [address] [place] [address] PROGRESS Observed: 11/13/2017 Status: COMPLETED Source: [place] 12:09 PM [facility] REPOSITORY HNO ID: [id number] Author: Chris Donald Service: (none) Author Type: Physician Type: Progress Notes Filed: 11/13/2017 12:15 PM Note Text: CC: Analisa Beatty is a 62 year old female who presents to the office for pre operative clearance HPI: Upcoming total knee replacement, left knee, for OA changes, going to have replacement surgery early December by Dr. Loya through [facility] CBC and CMP wnl by Dr. Reji Thibodeaux for Stellara monitoring in October, last stellara injection October 21 PAST MEDICAL HISTORY Diagnosis Date - Benign neoplasm of colon - Spinal stenosis lumbar - Unspecified hypothyroidism PAST SURGICAL HISTORY Procedure Laterality Date - COLONOS W/REM POLYP SNARE 05/02/06 - COLONOSCOPY 06/22/16 diverticulosis, hyperplastic polyp - NM THERAPEUTIC IODINE 131_*FL 1984 thyroid ablation - REMOVAL ADENOIDS,PRIMARY,<12 Y/O Adenoidectomy - REMOVAL OF TONSILS,<12 Y/O Tonsillectomy - REVISE MEDIAN N/CARPAL TUNNEL SURG Carpal tunnel decomp - REVISE MEDIAN N/CARPAL TUNNEL SURG Carpal tunnel decomp Social History: Social History Substance Use Topics - Smoking status: Never Smoker - Smokeless tobacco: Never Used - Alcohol use No FAMILY HISTORY Problem Relation Age of Onset - Diabetes Mother - Diabetes Father - Heart Mother [place], CAD - Heart Father 59 [place] - Stroke Mother s/p coronary stent Current Outpatient prescriptions: USTEKINUMAB (STELARA SUBCUTANEOUS) Inject subcutaneously. COMPOUNDED PRESCRIPTION 1 tablet T3 22.5mcg twice daily PO SYNTHROID 75 mcg tablet Take 1 tablet by mouth daily before breakfast. HORTENSIA. Code 5 COMPOUNDED PRESCRIPTION timed release T3 atenolol (TENORMIN) 25 mg tablet TAKE 1 TABLET ONCE DAILY cycloSPORINE (RESTASIS) 0.05 % ophthalmic emulsion Use 1 Drop in both eyes twice daily. triamcinolone acetonide 0.147 mg/gram topical spray Apply 1 application to affected area twice daily as needed (scalp rash and itching). fexofenadine (KEON) 180 mg tablet One tablet one to two times daily for itching. Allergies: ALLERGIES Allergen Reactions - Daypro [Oxaprozin] ROS: See HPI PE: 11/13/17 1121 BP: 124/80 Pulse: 60 Resp: 16 Temp: 36.4 ?C (97.5 ?F) TempSrc: Left Tympanic Weight: 68.5 kg (151 lb) Height: 160 cm (5' 3) Gen: AANDO, NAD, non-toxic appearing, Pleasant, cooperative HEENT: NT/AC, PERRLA, wearing glasses, EOMs intact b/l, nares clear and patent b/l, pharynx without erythema, exudate or lesions, MMM. Uvula midline. EACs without erythema or debris. TMs pearly zimmer with intact landmarks b/l. Neck: supple, No cervical LAD, no thyromegaly, no carotid bruits CV: RRR, normal S1 S2, no murmurs, no gallops, no rubs, Pulses 2+ and symmetric in UE and LE b/l Lungs: normal respiratory effort, CTA b/l, no wheezing or rhonchi or rales Abd: soft, NT, ND, +BS, no hepatosplenomegaly MS: FROM all 4 extremities except left ear Neuro: CN II-XII intact b/l, strength 5/5 b/l UE and LE, DTRs 2/4 UE and LE, sensation intact. Skin: warm, dry, intact, stable psoriasis lesions ASSESSMENT/PLAN: 1. Pre-operative clearance - ICD9: V72.84, ICD10: Z01.818 (primary diagnosis) - ECG today in office overall normal sinus bradycardia without concerns, wnl for PE today in office, cleared for left total knee arthroplasty surgery - ECG COMPLETE W INTERPRETATION - CBC - COMP METABOLIC PANEL 2. Arthritis of left knee - ICD9: 716.96, ICD10: M17.12 - see above 3. Hypothyroidism, acquired - ICD9: 244.9, ICD10: E03.9 - Instructed patient on importance of taking on an empty stomach either first thing in the morning or at bedtime. - COMPOUNDED PRESCRIPTION Chris Donadl DO To ER if develops chest pain, shortness of breath, or severe worsening of symptoms. Discussed risks, benefits, alternatives, and potential side effects of medications. Patient expressed understanding and agreed with the plan. Chris Donald DO [address] [place] [address] CNOV Observed: 11/13/2017 Status: COMPLETED Source: [place] 11:20 AM [facility] REPOSITORY Office Visit (FAMPWS) ANALISA BEATTY ([id number]) 1955 F Date Time Provider Department 11/13/17 11:20 AM CHRIS DONALD During your visit today, we recorded the following information about you: Temperature Pulse Respiration Blood pressure 97.5 degrees 60/minute 16/minute 124/80 Weight Height 68.5 kg 1.6 m Chris Donald DO 11/13/2017 12:15 PM Signed CC: Analisa Beatty is a 62 year old female who presents to the office for pre operative clearance HPI: Upcoming total knee replacement, left knee, for OA changes, going to have replacement surgery early December by Dr. Loya through [facility] Last CBC and CMP wnl by Dr. Reji Thibodeaux for Stellara monitoring in October, last stellara injection October 21 PAST MEDICAL HISTORY Diagnosis Date - Benign neoplasm of colon - Spinal stenosis lumbar - Unspecified hypothyroidism PAST SURGICAL HISTORY Procedure Laterality Date - COLONOS W/REM POLYP SNARE 05/02/06 - COLONOSCOPY 06/22/16 diverticulosis, hyperplastic polyp - NM THERAPEUTIC IODINE 131_*FL 1984 thyroid ablation - REMOVAL ADENOIDS,PRIMARY,ANDlt;10 Y/O Adenoidectomy - REMOVAL OF TONSILS,ANDlt;10 Y/O Tonsillectomy - REVISE MEDIAN N/CARPAL TUNNEL SURG Carpal tunnel decomp - REVISE MEDIAN N/CARPAL TUNNEL SURG Carpal tunnel decomp Social History: Social History Substance Use Topics - Smoking status: Never Smoker - Smokeless tobacco: Never Used - Alcohol use No FAMILY HISTORY Problem Relation Age of Onset - Diabetes Mother - Diabetes Father - Heart Mother IA, CAD - Heart Father 59 [place] - Stroke Mother s/p coronary stent Current Outpatient prescriptions: USTEKINUMAB (STELARA SUBCUTANEOUS) Inject subcutaneously. COMPOUNDED PRESCRIPTION 1 tablet T3 22.5mcg twice daily PO SYNTHROID 75 mcg tablet Take 1 tablet by mouth daily before breakfast. HORTENSIA. Code 5 COMPOUNDED PRESCRIPTION timed release T3 atenolol (TENORMIN) 25 mg tablet TAKE 1 TABLET ONCE DAILY cycloSPORINE (RESTASIS) 0.05 % ophthalmic emulsion Use 1 Drop in both eyes twice daily. triamcinolone acetonide 0.147 mg/gram topical spray Apply 1 application to affected area twice daily as needed (scalp rash and itching). fexofenadine (KEON) 180 mg tablet One tablet one to two times daily for itching. Allergies: ALLERGIES Allergen Reactions - Daypro [Oxaprozin] ROS: See HPI PE: 11/13/17 1121 BP: 124/80 Pulse: 60 Resp: 16 Temp: 36.4 ?C (97.5 ?F) TempSrc: Left Tympanic Weight: 68.5 kg (151 lb) Height: 160 cm (5' 3ANDquot;) Gen: AANDamp;O, NAD, non-toxic appearing, Pleasant, cooperative HEENT: NT/AC, PERRLA, wearing glasses, EOMs intact b/l, nares clear and patent b/l, pharynx without erythema, exudate or lesions, MMM. Uvula midline. EACs without erythema or debris. TMs pearly zimmer with intact landmarks b/l. Neck: supple, No cervical LAD, no thyromegaly, no carotid bruits CV: RRR, normal S1 S2, no murmurs, no gallops, no rubs, Pulses 2+ and symmetric in UE and LE b/l Lungs: normal respiratory effort, CTA b/l, no wheezing or rhonchi or rales Abd: soft, NT, ND, +BS, no hepatosplenomegaly MS: FROM all 4 extremities except left ear Neuro: CN II-XII intact b/l, strength 5/5 b/l UE and LE, DTRs 2/4 UE and LE, sensation intact. Skin: warm, dry, intact, stable psoriasis lesions ASSESSMENT/PLAN: 1. Pre-operative clearance - ICD9: V72.84, ICD10: Z01.818 (primary diagnosis) - ECG today in office overall normal sinus bradycardia without concerns, wnl for PE today in office, cleared for left total knee arthroplasty surgery - ECG COMPLETE W INTERPRETATION - CBC - COMP METABOLIC PANEL 2. Arthritis of left knee - ICD9: 716.96, ICD10: M17.12 - see above 3. Hypothyroidism, acquired - ICD9: 244.9, ICD10: E03.9 - Instructed patient on importance of taking on an empty stomach either first thing in the morning or at bedtime. - COMPOUNDED PRESCRIPTION Chris Donald DO To ER if develops chest pain, shortness of breath, or severe worsening of symptoms. Discussed risks, benefits, alternatives, and potential side effects of medications. Patient expressed understanding and agreed with the plan. Chris Donald DO [address] [place] [address] Referring Provider: SELF [200] Allergies As of Date: 11/13/2017 Noted Allergy Reaction DAYPRO (OXAPROZIN) 04/12/2006 Date Reviewed: 03/28/2017 Reviewed by: Sunil Gamble LPN - Fully Assessed Reason for Visit: Pre-Op Exam [87] Cmt: Left knee surgery Primary Visit Diagnosis:Pre-operative clearance [Z01.818] Other Visit Diagnoses:Arthritis of left knee [M17.12] Hypothyroidism, acquired [E03.9] Order(s):ECG COMPLETE W INTERPRETATION [ECG01] Order #: [id number] FUTURE CBC [SQCBC] Order #: [id number] FUTURE COMP METABOLIC PANEL [SQCMP] Order #: [id number] FUTURE COMPOUNDED PRESCRIPTION1 tablet T3 22.5mcg twice daily PODisp: 180 tabletRfl: 3 Prescriptions as of 11/13/2017 Sig: STELARA SUBCUTANEOUS Inject subcutaneously. COMPOUNDED PRESCRIPTION 1 tablet T3 22.5mcg twice quique* SYNTHROID 75 MCG TABLET Take 1 tablet by mouth daily * COMPOUNDED PRESCRIPTION timed release T3 ATENOLOL 25 MG TABLET TAKE 1 TABLET ONCE DAILY CYCLOSPORINE 0.05 % EYE DROPS* Use 1 Drop in both eyes twice* TRIAMCINOLONE ACETONIDE 0.147* Apply 1 application to affect* FEXOFENADINE 180 MG TABLET One tablet one to two times d* Problem List As Of Date 11/13/2017 Noted Resolved BENIGN NEOPLASM LG BOWEL [D12.6] INVALID FOR* PLANTAR WARTS NOS [B07.8] INVALID FOR* SEBORRHEIC KERATOSIS NOS [L82.1] INVALID FOR* SOLAR LENGINES///DYSCHROMIA OTHER [L81.9] INVALID FOR* CHR SOLAR SKIN DAMAGE NOS [L57.8] INVALID FOR* SEBORRHEIC KERATOSIS INFLAMED [L82.0] INVALID FOR* CHILDS ANGIOMA///NEVUS, NON-NEOPLASTIC [I78.1] INVALID FOR* OPEN WOUND SITE NOS [T14.8XXA] INVALID FOR* HYPOPIGMENTATION///DYSCHROMIA UNSPECIFIED [L81.*INVALID FOR* Hyperplastic colon polyp [K63.5] INVALID FOR* Diverticulosis of large intestine without hemor*INVALID FOR* Rash and nonspecific skin eruption [R21] INVALID FOR* More... Prescriptions ordered this encounter Disp Refills Start End COMPOUNDED PRESCRIPTION 180 * 3 11/13/2017 Si tablet T3 22.5mcg twice daily PO Medications Discontinued During This Encounter ustekinumab (STELARA) 130 mg/26 mL i* 11/13/2017 Class: Historical Med Route: INTRAVENOUS Sig: Inject intravenously. Disc: Erroneous entry COMPOUNDED PRESCRIPTION 11/13/2017 Class: Historical Med Sig: T3 22.5mcg twice daily [facility] [phone] Disc: Reason for discontinue is not on file. Encounter Status:Closed by CHRIS DONALD DO on 11/13/17 LIVER PROFILE Collected: 10/24/2017 Status: F Source: [place] 12:15 PM [facility] TYPE CODE TESTS RESULT OUT OF RANGE REFERENCE UNITS LAB L501.1500 6.4-8.2 g/dL Normal T PROT 7.2 LAB L501.1800 3.2-5.0 g/dL Normal ALB 3.7 LAB L501.1950 2.2-4.2 g/dL Normal GLOB 3.5 LAB L501.4100 15-37 U/L Low AST 14 LAB L501.4305 45-117 U/L Normal ALK P 67 LAB L501.4405 13-56 U/L Normal ALT 19 Result Comment: Please note revised ALT reference range effective 2017. LAB L501.4600 0.20-1.00 mg/dL Normal T BILI 0.50 LAB L501.4700 0.00-0.30 mg/dL Normal D BILI 0.11 Performed By: #### L500.3400 #### [facility] [address] [place], [address] CBC W/DIFF, AUTOMATED Collected: 10/24/2017 Status: F Source: [place] 12:15 PM [facility] [place] TYPE CODE TESTS RESULT OUT OF RANGE REFERENCE UNITS LAB L100.1000 4.4-11.0 K/mm3 Normal WBC 6.4 LAB L100.1200 4.2-5.4 M/mm3 Low RBC 3.63 LAB L100.1300 12.0-15.0 g/dl Low HGB 11.5 LAB L100.1400 37-47 % Low HCT 34.8 LAB L100.1500 81-99 fL Normal MCV 95.9 LAB L100.1600 27.0-32.0 pg Normal MCH 31.7 LAB L100.1700 32-36 g/gl Normal MCHC 33.0 LAB L100.1810 11.6-14.6 % Normal RDW CV 13.3 LAB L100.1820 35.1-43.9 fl High RDW SD 44.7 LAB L100.1900 150-450 K/mm3 Normal PLT 310 LAB L100.2000 6.2-12.0 fl Normal MPV 9.0 LAB L100.2100 47-70 % Normal NEUT% 57.0 LAB L100.2200 19-41 % Normal LY% 31.3 LAB L100.2300 0-10 % High MONO% 10.6 LAB L100.2400 0-5 % Normal EO% 0.9 LAB L100.2500 0-1 % Normal BASO% 0.2 LAB L100.2550 0.0-0.9 % Normal IM GRAN % 0.000 Result Comment: IG% - Immature Granulocytes (promyelocytes, myelocytes and metamyelocytes) > 1% indicates that a LEFT SHIFT is Present. LAB L100.2620 2.0-7.7 X10 3/uL Normal Absolute Neut 3.7 LAB L100.2720 0.83-4.51 X10 3/ul Normal Absolute Lymph 2.01 Performed By: #### L100.0100 #### [facility] [place], [place], [address] QUANTIFERON TB-GOLD Collected: 10/24/2017 Status: F Source: [place] 12:[place] PM [facility] [place] TYPE CODE TESTS RESULT OUT OF RANGE REFERENCE UNITS LAB L3400.7025 Negative Normal QFT Negative TB GOLD Result Comment: The specimen received for QuantiFERON testing was incubated by the ordering institution. Specific procedures outlined in our Directory of Services and in the package insert for the QuantiFERON Gold (In Tube) test must be followed to enable for proper stimulation of cells for the production of interferon gamma. LAB L3400.7035 . Normal QFT TB Comment POS CRIT Result Comment: To be considered positive a specimen should have a TB Ag minus Nil value greater than or equal to 0.35 IU/mL and in addition the TB Ag minus Nil value must be greater than or equal to 25% of the Nil value. There may be insufficient information in these values to differentiate between some negative and some indeterminate test values. LAB L3400.7045 . IU/mL Normal QFT TB AB 0.09 VALUE LAB L3400.7055 . IU/mL Normal QFT NIL VALUE 0.11 LAB L3400.7065 . IU/mL > Normal QFT MITOGEN 10.00 [facility] LAB L3400.7075 . IU/mL < Normal QFT AG - NIL 0 LAB L3400.7085 . Normal QFT TB INTER Comment Result Comment: The QuantiFERON TB Gold (in Tube) assay is intended for use as an aid in the diagnosis of TB infection. Negative results suggest that there is no TB infection. In patients with high suspicion of exposure, a negative test should be repeated. A positive test indicates infection with Mycobacterium tuberculosis. Among individuals without tuberculosis infection, a positive test may be due to exposure to M. kansasii, M. szulgai or M. marinum. On the Internet, go to cdc.gov/tb for further details. Performed at: [facility] [address] [id number] Aerodynamics Professor: Abundio Starks PhD, Phone: [phone] Performed By: #### L3400.7000 #### [facility] (refer to report for specific site) refer to report for address and phone number OBSOLETE Observed: 09/06/2017 Status: COMPLETED Source: [place] 12:00 AM [facility] REPOSITORY [facility] ANALISA BEATTY ([id number]) 1955 F Date Time Provider Department 09/06/17 [facility] DONALD [facility] During your visit today, we recorded the following information about you: Sonya Fletcher LPN 09/06/2017 12:56 PM Signed Patient needs this to be written for HORTENSIA. Order pended. Patient's request for medication is as follows: Pending Prescriptions Disp Refills SYNTHROID 75 MCG TABLET 90 tablet 1 Sig: Take 1 tablet by mouth daily before breakfast. HORTENSIA. Code 5 HORTENSIA: Yes Please approve the above prescription(s) to electronically send to pharmacy. Sonya Fletcher LPN Allergies As of Date: 09/06/2017 Noted Allergy Reaction DAYPRO (OXAPROZIN) 04/12/2006 Date Reviewed: 03/28/2017 Reviewed by: Sunil Gamble LPN - Fully Assessed Reason for Visit: Refill Request [94] Order(s):SYNTHROID 75 mcg tabletTake 1 tablet by mouth daily before breakfast. HORTENSIA. Code 5Disp: 90 tabletRfl: 1 Prescriptions as of 09/06/2017 Sig: SYNTHROID 75 MCG TABLET Take 1 tablet by mouth daily * COMPOUNDED PRESCRIPTION timed release T3 ATENOLOL 25 MG TABLET TAKE 1 TABLET ONCE DAILY CYCLOSPORINE 0.05 % EYE DROPS* Use 1 Drop in both eyes twice* FEXOFENADINE 180 MG TABLET One tablet one to two times d* TRIAMCINOLONE ACETONIDE 0.147* Apply 1 application to affect* COMPOUNDED PRESCRIPTION T3 22.5mcg twice daily [facility]* Problem List As Of Date 09/06/2017 Noted Resolved BENIGN NEOPLASM LG BOWEL [D12.6] INVALID FOR* PLANTAR WARTS NOS [B07.8] INVALID FOR* SEBORRHEIC KERATOSIS NOS [L82.1] INVALID FOR* SOLAR LENGINES///DYSCHROMIA OTHER [L81.9] INVALID FOR* CHR SOLAR SKIN DAMAGE NOS [L57.8] INVALID FOR* SEBORRHEIC KERATOSIS INFLAMED [L82.0] INVALID FOR* CHILDS ANGIOMA///NEVUS, NON-NEOPLASTIC [I78.1] INVALID FOR* OPEN WOUND SITE NOS [T14.8XXA] INVALID FOR* HYPOPIGMENTATION///DYSCHROMIA UNSPECIFIED [L81.*INVALID FOR* Hyperplastic colon polyp [K63.5] INVALID FOR* Diverticulosis of large intestine without hemor*INVALID FOR* Rash and nonspecific skin eruption [R21] INVALID FOR* More... Prescriptions ordered this encounter Disp Refills Start End SYNTHROID 75 MCG TABLET 90 t* 1 09/06/2017 Route: ORAL Sig: Take 1 tablet by mouth daily before breakfast. HORTENSIA. Code 5 Medications Discontinued During This Encounter SYNTHROID 75 mcg tablet 90 t* 1 09/06/2017 09/06/2017 Sig: TAKE 1 TABLET DAILY BEFORE BREAKFAST Disc: Reason for discontinue is not on file. Encounter Status:Closed by CHRIS DONALD DO on 09/06/17 OBSOLETE Observed: 09/05/2017 Status: COMPLETED Source: [place] 12:00 AM [facility] REPOSITORY Refill ([facility]) ANALISA BEATTY ([id number]) 1955 F Date Time Provider Department 09/05/17 [facility] During your visit today, we recorded the following information about you: Sunil Gamble LPN 09/05/2017 1:32 PM Signed Pharmacy electronically requests the following refill(s) Pending Prescriptions Disp Refills SYNTHROID 75 MCG TABLET 90 tablet 1 Sig: TAKE 1 TABLET DAILY BEFORE BREAKFAST HORTENSIA: Yes SHRUTI 03/28/17 NOV no upcoming *No recent thyroid labs. Sunil Gamble LPN Allergies As of Date: 09/05/2017 Noted Allergy Reaction DAYPRO (OXAPROZIN) 04/12/2006 Date Reviewed: 03/28/2017 Reviewed by: Sunil Gamble LPN - Fully Assessed Reason for Visit: Refill Request [94] Order(s):SYNTHROID 75 mcg tabletTAKE 1 TABLET DAILY BEFORE BREAKFASTDisp: 90 tabletRfl: 1 Prescriptions as of 09/05/2017 Sig: SYNTHROID 75 MCG TABLET TAKE 1 TABLET DAILY BEFORE BR* COMPOUNDED PRESCRIPTION timed release T3 ATENOLOL 25 MG TABLET TAKE 1 TABLET ONCE DAILY CYCLOSPORINE 0.05 % EYE DROPS* Use 1 Drop in both eyes twice* FEXOFENADINE 180 MG TABLET One tablet one to two times d* TRIAMCINOLONE ACETONIDE 0.147* Apply 1 application to affect* COMPOUNDED PRESCRIPTION T3 22.5mcg twice daily Wellne* Problem List As Of Date 09/05/2017 Noted Resolved BENIGN NEOPLASM LG BOWEL [D12.6] INVALID FOR* PLANTAR WARTS NOS [B07.8] INVALID FOR* SEBORRHEIC KERATOSIS NOS [L82.1] INVALID FOR* SOLAR LENGINES///DYSCHROMIA OTHER [L81.9] INVALID FOR* CHR SOLAR SKIN DAMAGE NOS [L57.8] INVALID FOR* SEBORRHEIC KERATOSIS INFLAMED [L82.0] INVALID FOR* CHILDS ANGIOMA///NEVUS, NON-NEOPLASTIC [I78.1] INVALID FOR* OPEN WOUND SITE NOS [T14.8XXA] INVALID FOR* HYPOPIGMENTATION///DYSCHROMIA UNSPECIFIED [L81.*INVALID FOR* Hyperplastic colon polyp [K63.5] INVALID FOR* Diverticulosis of large intestine without hemor*INVALID FOR* Rash and nonspecific skin eruption [R21] INVALID FOR* More... Prescriptions ordered this encounter Disp Refills Start End SYNTHROID 75 MCG TABLET 90 t* 1 09/06/2017 Sig: TAKE 1 TABLET DAILY BEFORE BREAKFAST Medications Discontinued During This Encounter SYNTHROID 75 mcg tablet 90 t* 1 02/25/2017 09/06/2017 Sig: TAKE 1 TABLET DAILY BEFORE BREAKFAST Disc: Reason for discontinue is not on file. Encounter Status:Closed by CHRIS DONALD DO on 09/06/17 ALLERGIES ALLERGIES DATE TYPE / CODE NAME / CODE REACTION SEVERITY SOURCE 04/12/2006 DRUG OXAPROZIN [facility] INGREDI/[address] [address]998(SNOM Repository ED CT) ENCOUNTERS ENCOUNTERS ADMIT/DISCHARGE ACCOUNT ADMITTING ENCOUNTER LOCATION SOURCE NUMBER CLASS 09/03/2018 [id number] Ambulatory [facility] Repository 08/20/2018 [id number] Ambulatory [address] [place] [address] Repository 07/29/2018 [id number] [facility] ing:MTLAB Repository 07/10/2018 [id number] Ambulatory [facility] Repository 07/10/2018 [id number] Ambulatory [address] [place] [address] Repository 04/22/2018/04/22/[id number] ing:PT Repository 04/21/2018 [id number] [facility] ing:MTLAB Repository 02/20/2018/02/21/20 [id number] Ambulatory [address] Repository 01/30/2018 [id number] Ambulatory [address] [place] [address] Repository 01/30/2018 [id number] Ambulatory [facility] Repository 12/16/2017/12/18/[id number] Shalini Inpatient UHCBuilding:[place] [address] [address] Encounter [id number]: [facility] [id number]: Repository [id number] 12/06/2017 [id number] Ambulatory [facility] Repository 12/06/2017 [id number] Ambulatory [facility] Repository 11/13/2017/11/15/19 [id number] Ambulatory [address] Repository 10/24/2017 [id number] Ambulatory [facility] ing:MTLAB Repository PAYERS PAYERS ENCOUNTER GUARANTOR PAYER SUBSCRIBER SOURCE 09/03/2018 ANALISA TREVORB: Primary [facility] Insurance:AetnaPolgiovannyT[facility] HillTesfayeB: [facility] Number: [id number] Repository [place], [place] [id number] [address] [id number] Date:Plan Name:[facility] [place], [place] [id number] 08/20/2018 ANALISA TREVORB: [facility] [place] [facility] [place] [id number] [facility] [address] Number: [address] Rep[address] [place], [place] [id number] [place], [place] [id number]: Date:Plan Name:Health [id number]: () () 07/29/2018 LISETTE Blake Primary LISETTE Blake [place] [id number] Insurance:ANTHEMPolic [facility] y Number: [id number] Regional Medical Centerconnorsun[place], [place] [id number] Repository [address]Fpd: (330) Date:9509-53-25SC [phone] () [id number] 72[address]YY: 07/29/2018 Secondary NOT GIVENUNK [place] Insurance:SELF PAY [facility] Number: Effective Repository Date:2018-07-29 07/10/2018 ANALISA ROGERIODOB: Primary ANALISA TREVORB: [place] Insurance:AnthemPolic [id number] [facility] [address] y Number: [address] [place], [place] [id number] [place], [place] [id number]: Date:Plan Name:[facility] [id number]: () () 07/10/2018 ANALISA ROGERIODOB: Primary ANALISACade MURRAYB: [place] Insurance:AnthemPolic [id number] [facility] [address] y Number: [address] [place], [place] [id number] [place], [place] [id number]: Date:Plan Name:[facility] [id number]: (HP) () 04/22/2018 LISETTE E Primary LISETTE Blake [place] [id number] Insurance:ANTHEMPolic [facility] y Number: [id number] [place], [place] [id number] Repository [address]Tax: (330) Date:7613-92-18ZR [phone] () [id number], [place] [address]IB: 04/22/2018 Secondary NOT GIVENUNK [place] Insurance:SELF PAY [facility] Number: Effective Repository Date:2017-12-19 04/21/2018 LISETTE E Primary LISETTE Bust[place] [id number] Insurance:ANTHEMPolic [facility]ILTDOB[facility] y Number: [id number] [place] [id number] Repository [address]Efx: (330) Date:6314-65-21VA [phone] () [id number], [place] [address]SM: 04/21/2018 Secondary NOT GIVENUNK [place] Insurance:SELF PAY [facility] Number: Effective Repository Date:2018-04-21 01/30/2018 ANALISACade MURRAYB: Primary LISETTE Blake [place] Insurance:[facility] y Number: [id number] Repository [facility] [place] [id number] [address] [id number]: e Date:Plan [place] Name:[facility] [id number] () 01/30/2018 ANALISA LESTERNORMAB: Primary ANALISA LESTERNORMAB: [place] Insurance:[facility] [id number] [facility] [address] y Number: [address] [place], [place] [id number] [place], [place] [id number]: Date:Plan Name:[facility] [id number]: (HP) () 12/16/2017 ANALISA LESTERNORMAB: Primary ANALISA TREVORB: [place] Insurance:[facility] [id number] [facility] [address] y Number: [address] [place], [place] [id number] [place], [place] [id number]: Date:Plan Name:[facility] [id number]: (HP) (HP) 12/06/2017 ANALISA LESTERTesfayeDOB: Primary ANALISA LESTERTDOB: [place] Insurance:[facility] [id number] [facility] [address] y Number: [address] [place], [place] [id number] [place], [place] [id number]: Date:Plan Name:[facility] [id number]: (HP) () 12/06/2017 ANALISA TREVORB: Primary ANALISA [facility]ITALNORMAB: [place] Insurance:[facility] [id number] [facility] [address] y Number: [address] [place], [place] [id number] [place], [place] [id number]: Date:Plan Name:Health [id number]: () () 10/24/2017 Lisette Blake Primary Lisette Bustillo [id number] [facility] y Number: [id number] [place] [id number] Repository [address]Ixj: 330 Date:0586-09-21EJ [phone] () [id number], [place] [address]HB: 10/24/2017 Secondary NOT GIVENUNK [place] Insurance:SELF PAY [facility] Number: Effective Repository Date:2017-10-24
== END ==
PROVIDERS: Family Provider Student in an Organized Health Care Education/Training Program; PCP Student in an Organized Health Care Education/Training Program; Referring Provider Dermatology; Visit Provider Dermatology
DX: Z79.899 Other long term (current) drug therapy (principal)
CPT/HCPCS: 36415; 80076; 85025

== ENCOUNTER → 2018-09-18 16:15 | Outpatient (CLI) | payer OTHER, SELFPAY ==
--- NOTE | 2018-09-18 16:20 | BI_ITS ---
MAMMOGRAPHY - BILATERAL SCREENING REASON FOR EXAM: Female, 63 years old. Routine annual screening examination. PERTINENT HISTORY: Non-contributory. TECHNIQUE: Digital bilateral breast ashley (3D mammographic acquisition) in the CC and MLO projections. 2-D mediolateral oblique (MLO) and craniocaudad (CC) views of both breasts were obtained. CAD: Full Field Digital Mammography with Computer Added Detection was performed. COMPARISON: Comparison is made with prior study dated July 16, 2017 and May 01, 2016. FINDINGS: Breast Composition: The breasts are heterogeneously dense, which may obscure small masses. There are no dominant masses or suspicious calcifications. No other significant abnormalities are identified. There has been no significant change since the prior study. BI/SCREENING MAMM (CAD), BILAT IMPRESSION: Stable bilateral screening mammogram. Yearly follow-up mammogram recommended. (A) ASSESSMENT CATEGORY: BIRADS Category 1: Negative. A letter regarding these results will be sent to the patient by the facility within 30 days. Approximately 10% of breast cancers are not detected by mammography. A normal mammogram should not delay biopsy of a clinically suspicious abnormality. [id number] Electronically Signed: Mitchel Galvan MD at 8:52 EST , Service support ,
== END ==
PROVIDERS: Family Provider Student in an Organized Health Care Education/Training Program; PCP Student in an Organized Health Care Education/Training Program; Referring Provider Student in an Organized Health Care Education/Training Program; Visit Provider Student in an Organized Health Care Education/Training Program
DX: Z12.31 Encounter for screening mammogram for malignant neoplasm of breast (principal)
CPT/HCPCS: 77063; 77067

== ENCOUNTER → 2018-12-05 | Outpatient (CLI) | payer OTHER, SELFPAY ==
[2018-12-05 17:50] LABS: Absolute Lymphocyte Count 1.32 X10^3/ul (0.83-4.51); Absolute Neutrophil Count 1.5 X10^3/uL (2.0-7.7); Basophil# 0.02 X10^3/uL; Basophil% 0.6 % (0-1); Eosinophil# 0.06 X10^3/uL; Eosinophils% 1.7 % (0-5); Hematocrit 32.8 % (37-47); Hemoglobin 10.5 g/dl (12.0-15.0); Lymphocyte # 1.32 X10^3/ul (4.0); Lymphocyte % 36.9 % (19-41); Mean Corpuscular Hgb 29.8 pg (27.0-32.0); Mean Corpuscular Volume 93.2 fL (81-99); Mean Platelet Vol. 8.9 fl (6.2-12.0); Monocyte# 0.73 X10^3/uL; Monocyte% 20.4 % (0-10); Neutrophil # 1.45 X10^3/uL (2.7-7.7); Neutrophil % 40.4 % (47-70); Platelet Count 297 K/mm3 (150-450); RBC Distribution Width CV 14.4 % (11.6-14.6); RBC Distribution Width SD 47.6 fl (35.1-43.9); Red Blood Count 3.52 M/mm3 (4.2-5.4); White Blood Count 3.6 K/mm3 (4.4-11.0)
[2018-12-05 18:02] LABS: POSITIVE COUNT NO; POSITIVE DIFFERENTIAL NO; POSITIVE MORPHOLOGY NO
[2018-12-05 18:10] LABS: AST(SGOT) 19 U/L (15-37); Alanine Aminotransfer ALT/SGPT 18 U/L (13-56); Albumin, Serum 3.7 g/dL (3.2-5.0); Alkaline Phosphatase 87 U/L (45-117); Bilirubin, Direct 0.09 mg/dL (0.00-0.30); Globulin 3.5 g/dL (2.2-4.2); Protein, Total 7.2 g/dL (6.4-8.2)
[2018-12-09 16:07] LABS: QNTFERON TB Mitogen Value > 10.00 IU/mL (.); QNTFERON TB Nil Value 0.11 IU/mL (.); QNTFERON TB2+ Ag Value 0.09 IU/mL (.)
[2018-12-10 09:11] LABS: QNTIFERON TB Positive Criteria Negative (Negative)
== END | disposition home or self-care (01) ==
LOC: MTLAB 15:38
PROVIDERS: Family Provider Student in an Organized Health Care Education/Training Program; PCP Student in an Organized Health Care Education/Training Program; Referring Provider Dermatology; Visit Provider Dermatology
DX: Z79.899 Other long term (current) drug therapy (principal)
CPT/HCPCS: 36415; 80076; 85025; 86480

== ENCOUNTER → 2019-04-16 | Outpatient (CLI) | payer OTHER, SELFPAY ==
--- NOTE | 2019-04-16 10:17 | BD_ITS ---
STUDY: DUAL ENERGY X-RAY ABSORPTIOMETRY / DXA REASON FOR EXAM: Female, 63 years old. Patient is postmenopausal. TECHNIQUE: Bone Mineral Density (BMD) measurements of lumbar spine and bilateral hips were obtained. COMPARISON: Comparison is made with prior study dated September 13, 2011. FINDINGS: Lumbar Spine (L1-L4): g/cm2 (0.946) / T-score (-1.8) / Z-score (0.2) Findings are suggestive of osteopenia with a moderate fracture risk. Left Femur Total: g/cm2 (0.527) / T-score (-3.8) / Z-score (-2.6) Left Femoral Neck: g/cm2 (0.613) / T-score (-3.1) / Z-score (-1.6) Right Femur Total: g/cm2 (0.515) / T-score (-3.9) / Z-score (-2.7) Right Femoral Neck: g/cm2 (0.575) / T-score (-3.3) / Z-score (-1.8) The T-Scores on the most recent prior examination were: Lumbar Spine (L1-L4): There has been worsening of bone density since the previous examination. Left Femur Total: which represents a worsening of 30.8%. Right Femur Total: which represents a worsening of 27.7%. BD/Dexa Bone Density Study IMPRESSION: The patient is considered osteoporotic as outlined below according to World Eric Organization (WHO) criteria with a high fracture risk. There has been worsening of bone density since the previous examination. Reference Information: The T-score is the number of standard deviations above or below the standard which is normal for young adults at their peak bone mineral density. The World Health Organization (WHO) interprets the T-scores as follows: Above -1 Normal bone density Between -1 and -2.5 Osteopenia Equal to / or below -2.5 Osteoporosis As a practical clinical guideline, osteopenia may be graded as follows: Mild -1 through -1.5 Moderate -1.6 through -2.0 Severe -2.1 through -2.4 The Z-score is the number of standard deviations above or below age-matched controls. A Z-score of less than -1.5 would be considered abnormal. References: 1. NIH Osteoporosis and Related Bone Diseases http://www.osteo.org 2. International Society for Clinical Densitometry http://www.iscd.org 3. National Osteoporosis Foundation http://www.nof.org Electronically Signed: Mitchel Galvan, at 15:48 EDT , Service support ,
== END | disposition home or self-care (01) ==
LOC: OPBD 10:12
PROVIDERS: Family Provider Student in an Organized Health Care Education/Training Program; PCP Student in an Organized Health Care Education/Training Program; Referring Provider Student in an Organized Health Care Education/Training Program; Visit Provider Student in an Organized Health Care Education/Training Program
DX: M85.80 Other specified disorders of bone density and structure, unspecified site (principal)
CPT/HCPCS: 77080

== ENCOUNTER → 2019-05-14 | Outpatient (CLI) | payer OTHER, SELFPAY ==
--- NOTE | 2019-05-14 10:52 | MRI_ITS ---
STUDY: MRI RIGHT KNEE REASON FOR EXAM: Female, 63 years old. Osteoarthritis. Pain TECHNIQUE: Standardized fat and water weighted pulse sequences were obtained in all 3 orthogonal planes. COMPARISON: None. FINDINGS: There is a medial meniscus tear posterior horn, series 6 image 15/35 There is diffuse, greater than 50% thickness articular cartilage loss of the medial femorotibial compartment. 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 There is reactive marrow edema of the medial femoral condyle more than the medial tibial plateau. There is mild osteoarthritic spur formation of the medial knee compartment. Normal medial collateral ligamentous complex (MCL). Normal distal semimembranosus, gracilis and semitendinosus tendons. Normal lateral meniscus. Normal hyaline cartilage of the lateral femorotibial compartment. There is mild osteoarthritic spur formation of the lateral knee compartment. Normal proximal tibiofibular articulation. Normal lateral collateral (fibular) ligament. Normal popliteus tendon. Normal biceps femoris tendon. Normal anterior cruciate ligament (ACL). Normal posterior cruciate ligament (PCL). There is arthrosis of the patellofemoral articulation. There is diffuse, greater than 50% thickness articular cartilage loss of the patellofemoral compartment. Normal medial and lateral patellar retinaculum. Normal quadriceps tendon. Normal patellar tendon. Normal Hoffa's fat pad. There is a moderate volume joint effusion. There is a 6.0 cm Coronado's cyst. The soft tissues are unremarkable. The otherwise visualized osseous structures are unremarkable. MRI/Lower Ext Joint Only (Routine) IMPRESSION: Medial meniscus tear Stress or insufficiency fracture of the medial femoral condyle Tricompartmental degenerative changes Joint effusion with popliteal cyst. Electronically Signed: Barak Zee MD at 12:14 EDT , Service support ,
== END | disposition home or self-care (01) ==
LOC: MRI 10:27
PROVIDERS: Family Provider Student in an Organized Health Care Education/Training Program; PCP Student in an Organized Health Care Education/Training Program
DX: M17.11 Unilateral primary osteoarthritis, right knee (principal)
CPT/HCPCS: 73721

== ENCOUNTER 2019-07-14 13:30 | Outpatient (RCR) | payer OTHER, SELFPAY ==
--- NOTE | 2018-12-30 17:37 | HP.PTEVAL ---
Patient's Visit Information CHRIS BEATTY is a 63 year old F referred to Physical Therapy by ZARI MYERS with a diagnosis of Spinal stenosis Lumbar. Date of Evaluation: 12/30/18 Physical Therapist: García Bradshaw, DOLOREST, OCS, CSCS - Visit Plan Frequency: 3x /Week Duration: 4-6 Weeks Plan: 3x/week for 3-6 for... 1. gentle L/S ROM and isometric strength of core. 2. L leg hip and knee strength. 3. gait for confidence with balance and steps on L ankle with AFO(pt to bring two of them to monitor use.). 4. Carefull with L leg nerve pain, NRS given to patient to try at home. - Subjective Findings: Surgery October 20 10 weeks ago did fusion of lumbar with bone graft and instrumentation. Ended up with nerve damage and L foot drop. Had surgery due to pain in L leg and cramps. 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 Had PT prior to surgery but did not help. Wants to get rid of nerve pain and drop foot. Pain currently on a daily basis. L knee to foot and sometime waist to thigh. Knee to foot is worst and 8/10 constant. LB is much improved. 2-3/10 intermittently. Sitting adn doing too much make it worse. Sleep is not well becasue leg is uncomfortable, taking gabapentin 2 at night. Gets 5 at a time on a good night. Normal is 7-8. Exercises, are nil. Just walking slowly with wh walker 1/3 mile daily 3 walks sarai day.. Precautions: Allowed in moderation now to bend adn lift and twist. Basic ADLs are OK but wears her out. Using grabber to avoid bending. Wants to get back to alking 8 miles per day. Playing with grandchildren. 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 Frustrated with L foot drop adn doctor optimistic it will come back and pain will improve. - Pain LBP Pain Intensity (Out of 10): 3 Pain Intensity Range: 0, 3 L leg pain Pain Intensity (Out of 10): 8 Pain Intensity Range: 8, 9 - Objective L foot drop. SLight active ankle motionDF PF but not much, no active inv or eversion, Weakness at 3/5 L hip abductiona dn knee ext, 3+ L quad and hip flexion. R knee and hip 4-. R ankle 4/5. PROM L ankle to 5 degrees DF and normal PF/inv/ev. reflexes 2/3 patellaB and 0/3 L achilles, 1/3 R achilles. Sensation diminished to gross light touch distal L LE. Walks with steppage L with wh walker. Has aFO but does nto like it. Without AD takes very short steps adn poor confidence stance on L. Trasnfers are I. Steps up require assist with L and unable to come down using L due to pain and weakness. Needs two UE fro ascending and descending. L/S AROM ext adn flexion max limited and SB mod limited. Incision is healed well and no tenderness or scarring palpable. Balance is Ok in standing without AD but mostly R ankle corrections. Dynamic balance is rough with WB L. - Goals Goal 1:: Ambulate into and out of PT without AD safe and I with AFO. Goal Time Frame: 4-6 Weeks Goal 2:: Steps reciprocally with one rail confidently. Goal Time Frame: 4-6 Weeks Goal 3:: Pateint pick objects up off ground to dress confidentlya dn without head of digital advertising & integration. Goal Time Frame: 4-6 Weeks Goal 4:: Pt feel 75% better in overall function and able to keep up with grandchild Goal Time Frame: 8-12 Weeks - Rehabilitation Potential Physical Therapy Diagnosis: s/p lumbar fusion and L leg weakness. Rehabilitation Potential: Fair - Anticipated Interventions Patient/Client Instruction: Educate patient on: Condition, Plan of Care For the Purpose of:: To decrease pain, To improve nutrient delivery to tissue, To improve muscle performance and motor function, To improve ability of physical actions for home/community/work/leisure, To improve gait and locomotor functions Therapeutic Exercise to Include: Strength training, Postural training, Flexibilty training, Gait and locomotor training, Passive ROM, Active ROM For the Purpose of:: To decrease pain, To increase ROM, To improve muscle performance and motor function, To increase tolerance to activity/condition/position, To improve gait and locomotor functions Thank you for the opportunity to evaluate your patient. For Medicare and Medicare HMO plans, please review the plan of care and approve it. It will need to be FAXED BACK to us at [phone] for Medicare purposes. For Medicare only, by signing this I certify the plan of care. Please let me know if there are questions or concerns regarding this plan of care. Physician Signature: Date:
--- NOTE | 2019-01-28 14:26 | HP.PTREVAL ---
ZARI MYERS, It has been my pleasure to treat CHRIS BEATTY over the last 11 visits for Spinal stenosis Lumbar. Please see the progress note below for an update on the physical therapy plan of care! Subjective: I can handle the machines myself. Pulldown is hard. Strength is improving. Pain in L leg is fairly constant still but healing slow. To doctor next week. Going the right way but a long way to go. Uses cane at home and walker in public as she is not well balanced and fearful of other people. Objective/Function: Walking with cane very well and safe on firm flat surface, slightly decreased L stance time. This is magnified without AD which has quick R step and slightly shorter than L, R foot hits with a thud coming down. Poor confidence without AD. Short R step length. Steps require one UE to ascend as she does not shift her weight FW. descending shows obvious L hip wekaness and requires rail. Standing balance is good and confident with 2 legs on gorund. OVERALL DOING BETTER WITH GAIT EACH SESSION, STILL NEEDS CONFIENCE IN L LE WB TO PROGRESS FUNCTION. Goals still appropriate with fair prognosis. Plan Plan: 3X/WEEK FOR 4 MORE AROUND A 2 WEEK VACATION IN FEBRUARY. Pt to do gym exercises herself and in clinic only if pt has questions or cannot do them. Focus therapy time on... 1. increase aggressiveness of L hip strength(inchworms, clamshells, slr). 2. pregait focussing on L LE wb, step up, weight shifts. 3. gait without AD fo rconfidence, steps. Goals Goal 1:: Ambulate into and out of PT without AD safe and I with AFO. Goal Time Frame: 4-6 Weeks Goal Progress: needs cane Goal 2:: Steps reciprocally with one rail confidently. Goal Time Frame: 4-6 Weeks Goal Progress: Goal Met Goal 3:: Pateint pick objects up off ground to dress confidentlya dn without owner manager. Goal Time Frame: 4-6 Weeks Goal Progress: Goal Met Goal 4:: Pt feel 75% better in overall function and able to keep up with grandchild Goal Time Frame: 8-12 Weeks Goal Progress: Progressing Goal 5:: <60% disability on LEFS Goal Time Frame: 6-8 Weeks Goal Progress: NEW GOAL Anticipated Interventions Patient/Client Instruction: Educate patient on: Condition, Plan of Care For the Purpose of:: To decrease pain, To improve nutrient delivery to tissue, To improve muscle performance and motor function, To improve ability of physical actions for home/community/work/leisure, To improve gait and locomotor functions Therapeutic Exercise to Include: Strength training, Postural training, Flexibilty training, Gait and locomotor training, Passive ROM, Active ROM For the Purpose of:: To decrease pain, To increase ROM, To improve muscle performance and motor function, To increase tolerance to activity/condition/position, To improve gait and locomotor functions Please do not hesitate to contact me at [phone] by phone or if you have questions or concerns regarding this new plan of care! Sincerely, García Bradshaw, DOLOREST, OCS, CSCS
--- NOTE | 2019-03-11 14:09 | HP.PTREVAL ---
ZARI MYERS, It has been my pleasure to treat CHRIS BEATTY over the last 22 visits for Spinal stenosis Lumbar. Please see the progress note below for an update on the physical therapy plan of care! Subjective: Knees and lower legs hurt and have been that way for a while. Will check L knee replacement with orthopedic. R knee taking all the stress. Wearing DF helper on L ankle to help maintain dorsiflexion. Getting around with SBQC much of time and more than I should as I don't know where my left leg will go. Does not walk without AD. Uses walker still at night. Uses it when fatigued also. Activity is not like it used to be and has not been out on boat. Used to walk 8 miles per day. was gone for 4 days and did it all at [place] and made her a little sore.Foot drop and nerve pain are main problems. Sees doctor end of March. Therapy is important for forcing balance. Working out in gym 3x/week. Objective/Function: Walks withotu AD with short R step and poor confidence in L LE but CGA and slow for 40 feet. With cane walk fairly well but has steppage gait with L today adn slow with turns adn hesitant to bend. Does pick object slowly up off floor without AD today. steps are poor confidence adn FW weight shift especially jeannie L, tends to pull with railing but improving. Overall better ambulation and steps btu far from where she wants to be. Held back by pain and lack of beth in L LE. Plan Plan: continue 3x/week for 4 weeks . Pt to do gym ex I. Focus in PT on walking challenges without AD including outdoor, turning, speed, bending. Focus on L LE WB confiednece adn steps with decreasing UE support. Fair prognosis to new goals Goals Goal 1:: Ambulate into and out of PT without AD safe and I with AFO. Goal Time Frame: 4-6 Weeks Goal Progress: Progressing Goal 2:: Steps reciprocally with one rail confidently. Goal Time Frame: 4-6 Weeks Goal Progress: Goal Met Goal 3:: Pateint pick objects up off ground to dress confidentlya dn without independent beauty consultant. Goal Time Frame: 4-6 Weeks Goal Progress: Goal Metpoor confidence. Goal 4:: Pt feel 75% better in overall function and able to keep up with grandchild Goal Time Frame: 8-12 Weeks Goal Progress: Progressing Goal 5:: <60% disability on LEFS Goal Time Frame: 6-8 Weeks Goal Progress: NT Goal 6:: Patient ambulate one lap HP and one flight steps without AD and one rail showing good forward weight shift on steps Goal Time Frame: 4-6 Weeks Goal Progress: NEW GOAL Anticipated Interventions Patient/Client Instruction: Educate patient on: Condition, Plan of Care For the Purpose of:: To decrease pain, To improve nutrient delivery to tissue, To improve muscle performance and motor function, To improve ability of physical actions for home/community/work/leisure, To improve gait and locomotor functions Therapeutic Exercise to Include: Strength training, Postural training, Flexibilty training, Gait and locomotor training, Passive ROM, Active ROM For the Purpose of:: To decrease pain, To increase ROM, To improve muscle performance and motor function, To increase tolerance to activity/condition/position, To improve gait and locomotor functions Please do not hesitate to contact me at [phone] by phone or if you have questions or concerns regarding this new plan of care! Sincerely, García Bradshaw, DPT, OCS, CSCS
--- NOTE | 2019-04-09 12:32 | HP.PTREVAL ---
ZARI MYERS, It has been my pleasure to treat CHRIS BEATTY over the last 29 visits for Spinal stenosis Lumbar. Please see the progress note below for an update on the physical therapy plan of care! Subjective: Saw spine surgeon kelseyn wants water therapy to help with R knee pain and general conditioning adn WB. had x rasy of knee and not bone on bone. Had nerve blocks L knee and it is not bothering her as much. Can put more weight through L knee. Put on meloxicam for R knee pain. L leg still hurts nerve pain aragon 5/10 mostly below the knee. Nerve block helped with L knee pain. R knee still hurts 6/10. LB hurts a little buit but not bad and expected. Fusiion is solid. Walking with cane during day in R UE adn walker at night. Objective/Function: Walks one full lap HP in 8 minutes with good B step length but still lower confidence WB L. Hnads are held in mid to high gaurd adn not confident to fGA yet. Trasnfers I. Steps are reciprocal with one rail but had her use L to take painful pressure off of R. OVERALL MUCH BETTER WITH MOBILITY IMPROVING AND 19 SECOND tug. Appropriate to cotninue in pool to take pressure of R knee. Plan Plan: 2-3x/week in water for LE adn postural/core strength, LE stretching adn gait focussing on L LE WB and SLS also for balance. Fair prognosis to new goals. Goals Goal 1:: Ambulate into and out of PT without AD safe and I with AFO. Goal Time Frame: 4-6 Weeks Goal Progress: Progressing, approp. Goal 2:: Steps reciprocally with one rail confidently. Goal Time Frame: 4-6 Weeks Goal Progress: Goal Met Goal 3:: Pateint pick objects up off ground to dress confidentlya dn without destination coordinator. Goal Time Frame: 4-6 Weeks Goal Progress: Goal Met Goal 4:: Pt feel 75% better in overall function and able to keep up with grandchild Goal Time Frame: 8-12 Weeks Goal Progress: Progressing, approp Goal 5:: walk one lap HP under 5 minutes with out high gaurd and tolerate FGA with 20/30 score Goal Time Frame: 6-8 Weeks Goal Progress: NT Goal 6:: Patient ambulate one lap HP and one flight steps without AD and one rail showing good forward weight shift on steps Goal Time Frame: 4-6 Weeks Goal Progress: Goal Met Anticipated Interventions Patient/Client Instruction: Educate patient on: Condition, Plan of Care For the Purpose of:: To decrease pain, To improve nutrient delivery to tissue, To improve muscle performance and motor function, To improve ability of physical actions for home/community/work/leisure, To improve gait and locomotor functions Therapeutic Exercise to Include: Strength training, Postural training, Flexibilty training, Gait and locomotor training, Passive ROM, Active ROM For the Purpose of:: To decrease pain, To increase ROM, To improve muscle performance and motor function, To increase tolerance to activity/condition/position, To improve gait and locomotor functions Please do not hesitate to contact me at [phone] by phone or if you have questions or concerns regarding this new plan of care! Sincerely, García Bradshaw, DPT, OCS, CSCS
--- NOTE | 2019-05-06 14:32 | HP.PTREVAL ---
ZARI MYERS, It has been my pleasure to treat CHRIS BEATTY over the last 37 visits for Spinal stenosis Lumbar. Please see the progress note below for an update on the physical therapy plan of care! Subjective: I now have a torn meniscus. Pool strengthens L LE and feels better getting around. Will have MRI next week. Using wh walker to get around to keep pressure off right knee. Likely will have arthroscopic surgery. Pain management ordered the MRI. R knee pain is holding her back more than anything. 8/10 at all times. If it wasn't for the knee pain she would be doing quite well. Activities : avoid cleaning house due to pain. Objective/Function: No active movement L ankle, support in place. L knee strength 4/5, R knee hurts to resistance at knee. Walks with 60/40 stance time L/R but still hesitant without aD and fearful due to mensical pain R. Steps reciprocal with two rail, pain R knee. OVERALL IMPROVING BUT PAIN IN R KNEE IS BIGGEST PROBLEM. ELLIOTT EE SURGEON NEXT WEEK THEN PAIN MANAGEMENT AFTER mri THEN LIKELY ORTHO. THEN VACATION A WEEK. F/U IN PT AFTER THAT VACATION UNLESS PROBLEMS PREVIOUSLY Plan Plan: PT r KNEE PAIN HOLDING HER BACK AND THEREFORE WILL HOLD UNTIL AFTER ORTHO F/U. F/U WITH PT IN 4 WEEKS TO ENSURE NO DIGRESSION AND FIND OUT OPTIONS WITH r KNEE. Goals Goal 1:: Ambulate into and out of PT without AD safe and I with AFO. Goal Time Frame: 4-6 Weeks Goal Progress: R knee limiting Goal 2:: Steps reciprocally with one rail confidently. Goal Time Frame: 4-6 Weeks Goal Progress: Goal Met Goal 3:: Pateint pick objects up off ground to dress confidentlya dn without electrolytic etcher. Goal Time Frame: 4-6 Weeks Goal Progress: Goal Met Goal 4:: Pt feel 75% better in overall function and able to keep up with grandchild Goal Time Frame: 8-12 Weeks Goal Progress: Progressing, approp Goal 5:: walk one lap HP under 5 minutes with out high gaurd and tolerate FGA with 20/30 score Goal Time Frame: 6-8 Weeks Goal Progress: Not Progressing Goal 6:: Patient ambulate one lap HP and one flight steps without AD and one rail showing good forward weight shift on steps Goal Time Frame: 4-6 Weeks Goal Progress: R knee painful Anticipated Interventions Patient/Client Instruction: Educate patient on: Condition, Plan of Care For the Purpose of:: To decrease pain, To improve nutrient delivery to tissue, To improve muscle performance and motor function, To improve ability of physical actions for home/community/work/leisure, To improve gait and locomotor functions Therapeutic Exercise to Include: Strength training, Postural training, Flexibilty training, Gait and locomotor training, Passive ROM, Active ROM For the Purpose of:: To decrease pain, To increase ROM, To improve muscle performance and motor function, To increase tolerance to activity/condition/position, To improve gait and locomotor functions Please do not hesitate to contact me at [phone] by phone or if you have questions or concerns regarding this new plan of care! Sincerely, García Bradshaw, DPT, OCS, CSCS
--- NOTE | 2019-06-08 13:45 | HP.PTREVAL_ITS ---
ZARI MYERS, It has been my pleasure to treat CHRIS BEATTY over the last 38 visits for Spinal stenosis Lumbar. Please see the progress note below for an update on the physical therapy plan of care! Subjective: Had an MRI. Showed R knee fracture adn slightly torn meniscus. Saw pain doctor, spine surgeon, ortho for knee one right after another. Ortho recommended knee brace or TKA. Chose brace and been in it for two weeks. Likely will need it 6-12 weeks. 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 Spine wants more aquatic therapy adn knee surgeon wants a break. Pain in knee is 5/10 which is much better than previous 03/20. Brace off still hurts worse(at night). using cane to get around with brace. Had NCT last week and will get results next week. Will see pain doctor next week. Back pain has not been bad, 2/10. Been doing leg stretches this month on legs supine. Not allowed to put any pressure through R knee. Sleep is not great due to leg pain. Uses walker at times to get around. Did laundry today. Objective/Function: L ankle not moving actively, L knee adn hip WFL AROM, still has nerve pain L LE, back pain improving and not limiting her. Walks back to PT with cane in R UE and brace on R LE slow but mod I. Goals below still ap propriate depending on condition of R knee as it heals with brace. Fair prognosis. Plan Plan: Pt says she is not allowed to do exercise with WB R knee despite walking into PT Full WB(with brace). I educated her that we could do water PT NWB for LB and core strength adn ROM and hip and knee and ankle strength but she would rather weight and heal more in R LE. Will f/u in one month to monitor r knee pain and its effect on her mobility. Also gait,s teps, L ankle ROM and LB ROM Goals Goal 1:: Ambulate into and out of PT without AD safe and I with AFO. Goal Time Frame: 4-6 Weeks Goal Progress: Still appropriate Goal 2:: Steps reciprocally with one rail confidently. Goal Time Frame: 4-6 Weeks Goal Progress: Goal Met Goal 3:: Pateint pick objects up off ground to dress confidentlya dn without software security architect. Goal Time Frame: 4-6 Weeks Goal Progress: Goal Met Goal 4:: Pt feel 75% better in overall function and able to keep up with grandchild Goal Time Frame: 8-12 Weeks Goal Progress: appropriate Goal 5:: walk one lap HP under 5 minutes with out high gaurd and tolerate FGA with 20/30 score Goal Time Frame: 6-8 Weeks Goal Progress: approp depnding knee Goal 6:: Patient ambulate one lap HP and one flight steps without AD and one rail showing good forward weight shift on steps Goal Time Frame: 4-6 Weeks Goal Progress: appropriate Anticipated Interventions Patient/Client Instruction: Educate patient on: Condition, Plan of Care For the Purpose of:: To decrease pain, To improve nutrient delivery to tissue, To improve muscle performance and motor function, To improve ability of physical actions for home/community/work/leisure, To improve gait and locomotor functions Therapeutic Exercise to Include: Strength training, Postural training, Flexibilty training, Gait and locomotor training, Passive ROM, Active ROM For the Purpose of:: To decrease pain, To increase ROM, To improve muscle performance and motor function, To increase tolerance to activity/condition/position, To improve gait and locomotor functions Please do not hesitate to contact me at [phone] by phone or if you have questions or concerns regarding this new plan of care! Sincerely, García Bradshaw, DPT, OCS, CSCS
--- NOTE | 2019-07-14 14:13 | HP.PTDCSUM ---
HP - PT D/C Summary It has been my pleasure to treat CHRIS BEATTY under orders from ZARI MYERS, for the diagnosis of Spinal stenosis Lumbar for a total of 39 visit(s). Discharge Date: 07/14/19 Please see the following information for a summary of their discharge status. - Subjective Subjective: Healing. R knee hurts if on it alot. Saw knee doctor last week and again in August. Wear the brace adn let it heal and stay off of it. Pain in knee is down. Less pain in knee at night and sleeping better. Pain to 5/10 if on it too much > 2-3 hours. Long time to go away. Spine does nto hurt. L nerve damage still feels like someone is squeexing leg adn foot. Got TENS unit for calf to ankle and it helps for pain when it is on and a little while after. Rates this pain at 4/10 irritating. Nerve pain not improving in last month adn slightly over last three months. Still exercising L ankle at home. No gym exercises. Sleep is better. Still not overly active as ortho doctor wanted her off the R knee until August. Her dtr will have a baby net week. ? f/u with back doctor. Knee doctor in August. - Pain LBP Pain Intensity (Out of 10): 1 L leg pain Pain Intensity (Out of 10): 3 Right LE Pain Intensity (Out of 10): 4 - Overall Improvement % Improvement: 70 - Objective Objective/Function: Walks with cane in R UE and brace on L LE. ankel movement R is minimal but has contractions in ev/inv/ PF, DF hard to notice. L AFO brace intact and helpful. Walking with cane mod I, slow but good heel strike B and toe off. Can walk without cane safe and I but slow. Steps are using L due to R knee pain and precautions. Needs UE to ascend and descend due to weakness in L LE but improving. OVERALL DOING RATHER WELL AND LIMITED BY KNEE ORTHO PRECUATIONS. RECOMMEND BACK TO KNEE DOCTOR IN AUGUST. WHEN APPROPRIATE, SEND BACK TO PT FOR POOL OR GYM EX AND GAIT TRAINING FOR CONFIDENCE. - Goals Goal 1:: Ambulate into and out of PT without AD safe and I with AFO. Goal Progress: CANE APPROPRIATE Goal 2:: Steps reciprocally with one rail confidently. Goal Progress: n/a DUE TO r KNEE. Goal 3:: Pateint pick objects up off ground to dress confidentlya dn without colorer hides and skins. Goal Progress: Goal Met Goal 4:: Pt feel 75% better in overall function and able to keep up with grandchild Goal Progress: Goal Met Goal 5:: walk one lap HP under 5 minutes with out high gaurd and tolerate FGA with 20/30 score Goal Progress: Goal Met Goal 6:: Patient ambulate one lap HP and one flight steps without AD and one rail showing good forward weight shift on steps Goal Progress: Goal Met - Plan Plan: D/C DUE TO r KNEE PRECUATIONS AND TIME LIMITING PATIENTS ABILITY TO PROGRESS, SHOULD BE SENT BACK WHEN ALLOWED BY ORTHO TO EX. - D/C Information Discharge Comments: pT DOING WELL WITH FUNCTIONAL MOBILITY. She is currently limited by knee ortho doctor wanting her to rest due to R knee meniscus problem but will be willing/allowed to ex again after August. She should be sent back to PT at that time for pool or gym progressiona nd gait training if still found appropriate by doctor. If there are questions or concerns regarding this patient's physical therapy, please feel free to call me at [phone]. Thank you for the referral of this patient. Sincerely, García Bradshaw, DPT, OCS, CSCS
== END 2019-07-14 19:00 | disposition home or self-care (01) ==
LOC: PT 13:30
PROVIDERS: Family Provider Student in an Organized Health Care Education/Training Program; PCP Student in an Organized Health Care Education/Training Program
DX: M48.061 Spinal stenosis, lumbar region without neurogenic claudication (principal)
CPT/HCPCS: 97110; 97113; 97116; 97162; 97164; 97530

== ENCOUNTER 2019-07-29 17:07 | Inpatient (IN) | payer OTHER, MEDICARE, SELFPAY ==
[2019-07-29] VITALS (9 sets, daily range): BP systolic 135–187; BP diastolic 59–79; PULSE 71–101; RESP 14–60; TEMP 36.6–37.6; O2SAT 93–100; BMI 24.9
--- NOTE | 2019-07-29 17:30 | CT_ITS ---
STUDY: CT ABDOMEN AND PELVIS WITH CONTRAST REASON FOR EXAM: Female, 63 years old. Left lower quadrant, pelvic pain RADIATION DOSAGE (If Supplied By Facility): CTDIvol = ( 15.12 ) mGy, DLP = ( 721.69 ) mGycm TECHNIQUE: Transaxial images were obtained from the dome of the diaphragm to the symphysis pubis with oral contrast. Gastrografin and 100ml Isovue 370 was administered. Sagittal and coronal images were reconstructed. Individualized dose optimization techniques were used for this CT. COMPARISON: None. FINDINGS: The visualized lung bases are unremarkable. Heart is mildly enlarged. Normal liver. Normal gallbladder and extrahepatic biliary system. Normal spleen. Normal pancreas. Normal bilateral adrenal glands. Normal right kidney. Normal left kidney. Normal visualized stomach. Normal small intestine. Normal colon. There is a tubular, thick-walled appendix (13 mm), consistent with acute appendicitis. There is diffuse atherosclerotic calcification of the abdominal aorta, without a demonstrated aneurysm. Normal inferior vena cava. Bilateral gonadal veins are dilated with mild periovarian varicosities. Normal urinary bladder. There is trace free fluid in the pelvis. There is a small umbilical hernia containing fat. Operative hardware of the lumbosacral spine is identified causing moderate spray artifact. CT/Abdomen/Pelvis WITH Contrast IMPRESSION: 1. Dilated, thick-walled appendix with periappendiceal stranding and appendicolith compatible with appendicitis. 2. Chronic changes, as above. Electronically Signed: Amadeo Cedeno MD (Brooks) at 19:26 EST , Service support ,
--- NOTE | 2019-07-29 17:32 | ED.DCSUM_ITS ---
- ER Visit Summary Date of Service: 07/29/19 Chief Complaint: Abdominal pain History of Present Illness: The patient is a 63 F presenting with abdominal pain. She states this started on Saturday. She went to urgent care and was advised she has a stomach flu. She was advised to come to the ED if her abdomin al pain worsened. She states her pain worsened today. She has had subjective fever and chills. She has lower abdominal pain. She has nausea with no vomiting. Her last bowel movement was on Saturday. She denies urinary complaints. She has diffuse myalgias. She has chronic pain. Denies other complaints. Physical Examination: Vitals are stable. Patient is afebrile. Alert no acute distress. HEENT exam is unremarkable. Neck is supple. Lungs are clear and equal bilaterally. Heart is regular rate and rhythm. Abdomen is soft right and left lower quadrant tenderness with voluntary guarding, no rebound Extremities are unremarkable. Skin is warm and dry. No focal neurologic deficit. Remainder of exam is unremarkable. Emergency Department Course and Treatment: Patient given morphine, Zofran IV. She was given IV fluids. CBC shows white count 15.6. Chemistries unremarkable. Liver lipase are normal. CT abdomen pelvis shows dilated, thick-walled appendix with periappendiceal stranding and appendicolith compatible with appendicitis. Patient was given Zosyn IV. Discussed with Dr Sharma for evaluation. Disposition: Admission Impression: Acute appendicitis This note was generated with [employer] dictation software. It may contain incorrect words, spelling, and punctuation that were not noted in review of the chart prior to signing ED Disposition - Plan for ED Patient: Referrals: Chris Naylor DO [Primary Care Provider] -
[2019-07-29] MEDS: 0.9% Normal Saline 1,000 ML 1000 ML IV (17:42)
[2019-07-29] MEDS: Morphine 4 MG/ML Syringe IV (17:43)
[2019-07-29] MEDS: Ondansetron 4 MG/2 ML Vial IV (17:43)
[2019-07-29 17:59] LABS: Absolute Lymphocyte Count 1.07 X10^3/uL (0.83-4.51); Absolute Neutrophil Count 13.4 X10^3/uL (2.0-7.7); Basophil# 0.03 X10^3/uL; Basophil% 0.2 % (0-1); Eosinophil# 0.02 X10^3/uL; Eosinophils% 0.1 % (0-5); Hematocrit 37.2 % (37-47); Hemoglobin 12.1 g/dL (12.0-15.0); Lymphocyte # 1.07 X10^3/ul (4.0); Lymphocyte % 6.9 % (19-41); Mean Corp Hgb Conc 32.5 g/dL (32-36); Mean Corpuscular Hgb 31.4 pg (27.0-32.0); Mean Corpuscular Volume 96.6 fL (81-99); Mean Platelet Vol. 8.5 fl (6.2-12.0); Monocyte# 0.99 X10^3/uL; Monocyte% 6.3 % (0-10); NRBC Flagged by Analyzer 0 % (0-5); Neutrophil % 85.9 % (47-70); Platelet Count 279 K/mm3 (150-450); RBC Distribution Width CV 12.6 % (11.6-14.6); RBC Distribution Width SD 44.1 fl (35.1-43.9); Red Blood Count 3.85 M/mm3 (4.2-5.4); White Blood Count 15.6 K/mm3 (4.4-11.0)
[2019-07-29 18:16] LABS: ALB/GLOB Ratio 0.9 RATIO (0.9-2.4); AST(SGOT) 22 U/L (15-37); Alanine Aminotransfer ALT/SGPT 16 U/L (13-56); Albumin, Serum 3.5 g/dL (3.2-5.0); Alkaline Phosphatase 85 U/L (45-117); Anion Gap 6 (5-15); BUN 11 mg/dL (7-18); BUN/Creat Ratio 13.9 RATIO (10-20); Calcium,Total 8.7 mg/dL (8.5-10.1); Chloride 102 mmol/L (98-107); Creatinine, Serum 0.79 mg/dL (0.55-1.02); EST Glomerular Filtration Rate 77 mL/min (>60); Est Glom Filt Rate - Afr Amer 94 mL/min (>60); Estimated Creatinine Clearance 61.31 ml/min; Globulin 4.1 g/dL (2.2-4.2); Glucose 108 mg/dL (74-106); Lipase 60 U/L (73-393); Protein, Total 7.6 g/dL (6.4-8.2); Sodium Level 136 mmol/L (136-145)
[2019-07-29] MEDS: HYDROmorphone 1 MG/ML Syringe IV (18:44)
[2019-07-29] MEDS: 0.9% Normal Saline 1,000 ML 100 ML IV (18:47)
--- NOTE | 2019-07-29 19:45 | ED.RN ---
DR LORENA MADRIGAL FOR DR REDMOND
[2019-07-29 19:54] LABS: Bacteria 0 SEEN /hpf (None Seen); Color, Urine Yellow (Yellow); Glucose, Dipstick Normal (Normal); Ketone-Dipstick 15 mg/dl (Negative); Leukocyte Esterase-Dipstick Negative /ul (Negative); Mucous, Urine 0 SEEN /hpf (<or=2+); Nitrite-Dipstick Negative (Negative); Occult Blood-Urine Negative /ul (Negative); Protein-Dipstick 15 mg/dl (Negative); Red Blood Cells-Urine 0 SEEN /hpf (0-5); Urine Bilirubin Dipstick Negative (Negative); Urine Clarity Clear (Clear); Urine Urobilinogen 1 mg/dl (Normal); White Blood Cells 0 SEEN /hpf (0-5)
[2019-07-29 20:09] LABS: Squamous Epithelial Cells - UA 0-5 SEEN /hpf (5-10)
--- NOTE | 2019-07-29 20:49 | EKG12_ITS ---
Test Reason : PRE-OP Blood Pressure : / mmHG Vent. Rate : 075 BPM Atrial Rate : 075 BPM P-R Int : 180 ms QRS Dur : 084 ms QT Int : 378 ms P-R-T Axes : 055 005 041 degrees QTc Int : 422 ms Normal sinus rhythm Normal ECG Confirmed by DELMY MCCLELLAN, PIYUSH ([id number]), news copy editor DILLON BOOTH ([id number]) on 08/03/2019 11:55:35 AM Referred By: Confirmed By:KIRSTIN BROCK MD
--- NOTE | 2019-07-29 20:54 | DCINST_ITS ---
Discharge Diet: Light diet - advance as tolerated - if you have questions about your diet instructions, please talk to you doctor. Discharge Activity: May Not Drive - for 2-3 days or while taking narcotic pain medicine. May shower in (days): 1 Lifting Restrictions: 10 pounds Call your doctor if your incision/area has: Continuous Slow Oozing, Sudden Increased Bleeding, Increased Pain/ Swelling, Increased Redness, Foul Smelling Discharge Call your doctor if you observe: Fever of 101 or Higher Suture Line Care: Avoid Pulling/Pushing, Avoid Pinching/Bending Additional Dressing/Incision Instructions:: Change or remove dressing in 4 days. Leave steri-strips in place for 1 week. Allergies/Adverse Reactions: Allergies oxaprozin [From Daypro] Allergy (Verified 07/29/19 17:09) Nausea oxycodone Allergy (Verified 07/29/19 17:09) Nausea/Vom/Diarrhea Medications to take at Discharge Atenolol 25 mg PO DAILY 07/29/19 Duloxetine Hcl [Cymbalta] 20 mg PO DAILY 07/29/19 Gabapentin [Neurontin] 600 mg PO QHS 07/29/19 Levothyroxine [Synthroid] 75 mcg PO DAILY 07/29/19 Ondansetron HCl 4 mg PO Q8H PRN PRN 07/29/19 Ustekinumab [Stelara] 45 mg SQ PRN PRN 07/29/19 Primary Care Physician: Chris Naylor DO [Primary Care Provider] - Test Results: Test results from this visit will be discussed in further detail at your follow- up appointment, if applicable. Please Follow Up With: Bull Shamra MD - [phone] When: Call to make an appointment to be seen in about 10 days.
--- NOTE | 2019-07-29 20:57 | HP.PCM_ITS ---
Problem List (1) Acute appendicitis Status: Acute Qualifiers: Acute appendicitis type: with localized peritonitis Appendicitis perforation presence: without perforation Appendicitis abscess presence: without abscess History of Present Illness Date of Admission: 07/29/19 The patient is a 63 year old F who presents to the emergency room with a 48-hour history of abdominal pain. The patient states that 2 nights ago she developed a generalized abdominal pain. By her report she was seen at the [facility] urgent care last night 24 hours ago and was told that she had a flu type bug. The pain worsened and she returned to the emergency room this evening. She was acutely tender in the right lower quadrant CT scan demonstrates appendicitis with localized reactive changes. White blood cell count elevated at 15,000 with a significant left shift. I have been asked to assist with managing her surgical care. CT also demonstrates an appendicolith. The patient's recent health has been complicated by back surgery foot drop on the left knee fracture on the right. She utilizes a walker currently for ambulation. Past Medical History Allergies oxaprozin [From Daypro] Allergy (Verified 07/29/19 17:09) Nausea oxycodone Allergy (Verified 07/29/19 17:09) Nausea/Vom/Diarrhea Home Medications: Ambulatory Orders Medication Instructions Recorded Atenolol 25 mg PO DAILY 07/29/19 Duloxetine Hcl [Cymbalta] 20 mg PO DAILY 07/29/19 Gabapentin [Neurontin] 600 mg PO QHS 07/29/19 Levothyroxine [Synthroid] 75 mcg PO DAILY 07/29/19 Ondansetron HCl 4 mg PO Q8H PRN PRN 07/29/19 Ustekinumab [Stelara] 45 mg SQ PRN PRN 07/29/19 Smoking Status: Never smoker Review of Systems Constitutional: Reports: Anorexia HEENT: Denies: Difficulty Swallowing Cardiovascular: Denies: Chest Pain Respiratory: Denies: Cough Gastrointestinal: Reports: Abdominal Pain, - - Last food was 1030 this morning Endocrine: Denies: Change in Body Habitus VTE Information - Inpt Only VTE Present on Admission: No Patient Problems: Active and Suspected Problems Acute appendicitis (Acute) - Physical Exam Vitals/I&O's: Vital Signs Temp Pulse Resp BP Pulse Ox 99.6 F H 80 18 139/69 H 93 07/29/19 19:53 07/29/19 19:53 07/29/19 19:53 07/29/19 19:53 07/29/19 19:53 Oxygen Delivery Method Room Air Weight: 145 lb Body Mass Index (BMI) 24.9 Intake and Output for Last 24 Hours 07/27/19 07/28/19 07/29/19 23:59 23:59 23:59 Intake Total 1000 / 1000 Balance 1000 / 1000 General: Alert, Oriented x3, Cooperative, No apparent distress HEENT: Atraumatic Neck: Supple Lungs: Clear to auscultation, Normal air movement Cardiovascular: Regular rate, Regular Rhythm Abdomen: Bowel Sounds Present, Soft - Markedly tender to palpation right lower quadrant with rebound and guarding. Mass present Extremities: No Calf Tenderness Neurological: - - Normal cognition Psych/Mental Status: Normal Affect Laboratory Results 07/29/19 17:45: WBC 15.6 H, RBC 3.85 L, Hgb 12.1, Hct 37.2, MCV 96.6, MCH 31.4, MCHC 32.5, RDW Std Deviation 44.1 H, RDW Coeff of Nieves 12.6, Plt Count 279, MPV 8.5, Immature Gran % (Auto) 0.600, Neut % (Auto) 85.9 H, Lymph % (Auto) 6.9 L, [place] % (Auto) 6.3, Eos % (Auto) 0.1, Baso % (Auto) 0.2, Absolute Neuts (auto) 13.4 H, Absolute Lymphs (auto) 1.07, Nucleated RBC % 0 07/29/19 17:45: Sodium 136, Potassium 4.0, Chloride 102, Carbon Dioxide 28.0, Anion Gap 6, BUN 11, Creatinine 0.79, Estim Creat Clear Calc 61.31, Est GFR (MDRD) Af Amer 94, Est GFR (MDRD) Non-Af 77, BUN/Creatinine Ratio 13.9, Glucose 108 H, Calcium 8.7, Total Bilirubin 0.80, AST 22, ALT 16, Alkaline Phosphatase 85, Total Protein 7.6, Albumin 3.5, Globulin 4.1, Albumin/Globulin Ratio 0.9, Lipase 60 L 07/29/19 19:42: Urine Color Yellow, Urine Clarity Clear, Urine pH 5.0, Ur Sp ecific Herman 1.010, Urine Protein 15 H, Urine Glucose (UA) Normal, Urine Ketones 15 H, Urine Occult Blood Negative, Urine Nitrite Negative, Urine Bi lirubin Negative, Urine Urobilinogen 1 H, Ur Leukocyte Esterase Negative, Urine RBC 0 SEEN, Urine WBC 0 SEEN, Ur Squamous Epith Cells 0-5 SEEN, Urine Bacteria 0 SEEN, Urine Mucus 0 SEEN Assessment/Plan All Active Problems Acute appendicitis (Acute) Findings are consistent with a 48-hour old acute appendicitis with palpable mass rebound guarding and significant periappendiceal inflammatory changes. I recommended the patient a laparoscopic appendectomy with possible conversion to an open approach or drainage if indicated. I have discussed the technique, benefits, risks, alternatives. She has had an opportunity to ask and have questions answered. Because of the severity of process we will proceed directly as OR timing permits. Bull Sharma M.D., F.A.C.S.
--- NOTE | 2019-07-29 21:30 | APP_PTH ---
PATIENT: CHRIS BEATTY LOC: MS3 U#:[id number] AGE/SX: 63/F ROOM: [facility] RE07/30/[address]: Dr. Bull Sharma MD : [id number] BED: 1 DIS: 07/31/2019 SPEC #: [id number] RECD: 07/30/19 10:11 STATUS: ISI REMai #: [id number] KT: 07/29/19 21:[address]: Bull Sharma DEPT: SURGICAL PATHOLOGY RECD BY: Julio César Collier ENTERED: 07/30/19 12:50 SP TYPE: APPENDIX OTHR DR: MD Dr. Chris Jose III, DO Tissues: Appendix, NOS Procedures: Surgery Specimen Level III HEADER OPERATION: Laparoscopic appendectomy PRE-OP DIAGNOSIS: Acute appendicitis TISSUE SUBMITTED: Appendix MICROSCOPIC DIAGNOSIS Appendix, appendectomy: Acute purulent ruptured appendicitis and periappendicitis. SJ:nena 07/31/19 MICROSCOPIC DESCRIPTION Slides are reviewed. GROSS DESCRIPTION Received is one container labeled with the patient's name and designated appendix. The specimen consists of an appendix measuring 5 cm in length and 1 cm in diameter. The attached periappendiceal adipose tissue measures 3 cm in width. The serosa is congested and hemorrhagic. No obvious perforation is identified. The mucosa is hemorrhagic. No fecalith is identified. Engine Room Helper sections are submitted in one cassette. / CLEO:nena 07/30/19 TC:2 CPT: 29996
--- NOTE | 2019-07-29 22:40 | OP.PCM_ITS ---
Problem List (1) Acute appendicitis Status: Acute Qualifiers: Acute appendicitis type: with localized peritonitis Appendicitis perforation presence: with perforation Appendicitis abscess presence: with abscess Report of Operation Date of Procedure: 07/29/19 Pre-Operative Diagnosis: Acute appendicitis with severe periappendicitis Post-Operative Diagnosis: Acute appendicitis with localized perforation and localized abscess wall Surgery/Procedure Performed:: Laparoscopic appendectomy Description of Surgical Findings:: Timeout and informed consent was obtained. 63-year-old female taken the operative room. In the emergency room she received therapeutic Zosyn. She underwent general endotracheal vision anesthesia. The abdomen sterilely prepped draped. 0.5% Marcaine was used as local anesthetic. The procedure total 30 cc was used. Skin sites were pre-anesthetized. A vertical infraumbilical incision was created holding sutures of 0 Vicryl placed varies needle inserted saline drop test performed the abdomen was insufflated with CO2 to a pressure of 10 minutes of her pressure to me trocar inserted 5 [place] trochars were placed suprapubically in the low mid abdomen. Inspection revealed that there was omental adhesions densely adherent to the right lower quadrant pelvic sidewall with significant inflammation. Upon bluntly dissecting that it there was a ball of phlegmon involving the appendix and the terminal ileum and the ileal fat pad. I bluntly dissected that free until I find the appendix densely adherent to the cecum. Upon further dissection was apparent the patient had a localized perforation with free purulent stool type debris and an abscess wall made up in part by the cecal base. The appendicolith was at the very proximal portion of the appendix. There is very little viable appendix remaining. The cecum was somewhat indurated. With very careful dissection was able to make a window in the mesoappendix. I placed a 45 mm stapler and was just able to secure the appendix flush with the cecum at a point where I thought the tissue was viable. My only other option would have been to do a right colectomy. After inspecting the staple line and the tissue I felt that that degree of resection was not indicated at this time. I transected the mesoappendix with 2 firings of a white staple line. Hemo-lock clips were further used for hemostasis. The appendix was placed in retrieval bag. The right lower quadrant area was locally irrigated and aspirated free. The purulent type brown debris aspirated. Now the right lower quadrant appeared to be clear I inspected the staple lines for the appendiceal cecal base and the mesoappendix both appear to be intact. Gr eater omentum was placed overlying. Trochars removed under visualization the abdomen was allowed to deflate of the CO2. The fascia at the umbilicus approximated up to 0 Vicryl [id number] suture. Skin edges approximate interrupted 4 Monocryl subdermal stitches. Steri-Strips Telfa OpSite dressings applied. Sponge and instrument and needle counts reported surgical correct. Specimens appendix. Drains none. Blood loss minimal. The purulent debris from the appendix was cultured for Gram stain ASSURANCE SPECIALIST. It was submitted for pathology. Bull Sharma M.D., F.A.C.S. Type of Anesthesia:: General Anesthesiologist: Farhat Lehman
[2019-07-29] MEDS: Lactated Ringers 1,000 ML 100 ML IV (23:27)
[2019-07-30 02:05] VITALS: BP 147/68; PULSE 87; RESP 16; TEMP 37.7; O2SAT 100; BMI 24.9
[2019-07-30] MEDS: Morphine 2 MG/ML Syringe IV ×4 (02:38→18:42)
[2019-07-30] MEDS: 0.9% Saline Lock 10 ML Syringe IV ×3 (02:39→18:42)
[2019-07-30 04:00] VITALS: BP 144/67; PULSE 87; RESP 16; TEMP 37.1; O2SAT 98; BMI 24.9
[2019-07-30] MEDS: Lactated Ringers 1,000 ML 100 ML IV (05:22)
[2019-07-30 05:34] LABS: Absolute Lymphocyte Count 0.89 X10^3/uL (0.83-4.51); Absolute Neutrophil Count 12.9 X10^3/uL (2.0-7.7); Basophil# 0.01 X10^3/uL; Basophil% 0.1 % (0-1); Hematocrit 33.6 % (37-47); Hemoglobin 10.7 g/dL (12.0-15.0); Lymphocyte # 0.89 X10^3/ul (4.0); Lymphocyte % 6.1 % (19-41); Mean Corp Hgb Conc 31.8 g/dL (32-36); Mean Corpuscular Hgb 31.3 pg (27.0-32.0); Mean Corpuscular Volume 98.2 fL (81-99); Mean Platelet Vol. 8.8 fl (6.2-12.0); Monocyte# 0.79 X10^3/uL; Monocyte% 5.4 % (0-10); NRBC Flagged by Analyzer 0 % (0-5); Neutrophil # 12.88 X10^3/uL (2.7-7.7); Neutrophil % 87.8 % (47-70); Platelet Count 251 K/mm3 (150-450); RBC Distribution Width CV 12.5 % (11.6-14.6); Red Blood Count 3.42 M/mm3 (4.2-5.4); White Blood Count 14.7 K/mm3 (4.4-11.0)
[2019-07-30] MEDS: Levothyroxine 75 MCG Tablet PO (06:01)
--- NOTE | 2019-07-30 06:03 | PN.SURG_ITS ---
Patient Problems: Active and Suspected Problems Acute appendicitis (Acute) Subjective: Patient claims she is feeling very wiped out and fatigued, generalized abdominal soreness, less pain however than upon admission - Physical Exam Vitals/I&O's: Vital Signs Temp Pulse Resp BP Pulse Ox 98.7 F 87 16 144/67 H 98 07/30/19 04:00 07/30/19 04:00 07/30/19 04:00 07/30/19 04:00 07/30/19 04:00 Oxygen Flow Rate (L/min) 1 Oxygen Delivery Method Nasal Cannula Weight: 145 lb Body Mass Index (BMI) 24.9 Intake and Output for Last 24 Hours 07/28/19 07/29/19 07/30/19 23:59 23:59 23:59 Intake Total 2049 611.67 / 611.67 Balance 2049 611.67 / 611.67 Abdomen: Soft, Hypoactive Bowel Sounds Laboratory Results 07/29/19 17:45: WBC 15.6 H, RBC 3.85 L, Hgb 12.1, Hct 37.2, MCV 96.6, MCH 31.4, MCHC 32.5, RDW Std Deviation 44.1 H, RDW Coeff of Nieves 12.6, Plt Count 279, MPV 8.5, Immature Gran % (Auto) 0.600, Neut % (Auto) 85.9 H, Lymph % (Auto) 6.9 L, [place] % (Auto) 6.3, Eos % (Auto) 0.1, Baso % (Auto) 0.2, Absolute Neuts (auto) 13.4 H, Absolute Lymphs (auto) 1.07, Nucleated RBC % 0 07/29/19 17:45: Sodium 136, Potassium 4.0, Chloride 102, Carbon Dioxide 28.0, Anion Gap 6, BUN 11, Creatinine 0.79, Estim Creat Clear Calc 61.31, Est GFR (MDRD) Af Amer 94, Est GFR (MDRD) Non-Af 77, BUN/Creatinine Ratio 13.9, Glucose 108 H, Calcium 8.7, Total Bilirubin 0.80, AST 22, ALT 16, Alkaline Phosphatase 85, Total Protein 7.6, Albumin 3.5, Globulin 4.1, Albumin/Globulin Ratio 0.9, Lipase 60 L 07/29/19 19:42: Urine Color Yellow, Urine Clarity Clear, Urine pH 5.0, Ur Specific [place] 1.010, Urine Protein 15 H, Urine Glucose (UA) Normal, Urine Ketones 15 H, Urine Occult Blood Negative, Urine Nitrite Negative, Urine Bilirubin Negative, Urine Urobilinogen 1 H, Ur Leukocyte Esterase Negative, Urine RBC 0 SEEN, Urine WBC 0 SEEN, Ur Squamous Epith Cells 0-5 SEEN, Urine Bacteria 0 SEEN, Urine Mucus 0 SEEN 07/30/19 05:02: WBC 14.7 H, RBC 3.42 L, Hgb 10.7 L, Hct 33.6 L, MCV 98.2, MCH 31.3, MCHC 31.8 L, RDW Std Deviation 45.0 H, RDW Coeff of Nieves 12.5, Plt Count 251, MPV 8.8, Immature Gran % (Auto) 0.600, Neut % (Auto) 87.8 H, Lymph % (Auto) 6.1 L, [place] % (Auto) 5.4, Eos % (Auto) 0.0, Baso % (Auto) 0.1, Absolute Neuts (auto) 12.9 H, Absolute Lymphs (auto) 0.89, Nucleated RBC % 0 Current Medications Acetaminophen (Tylenol) 650 mg PO Q6H PRN PRN PRN Reason: Pain Score 1-10/10 Atenolol (Tenormin (Beta Lisa)) 25 mg PO DAILY [facility] Duloxetine HCl (Cymbalta) 20 mg PO DAILY [facility] Gabapentin (Neurontin) 600 mg PO QHS [facility] Lactated Ringer's () 1,000 mls @ 70 mls/hr IV .[id number] [facility] Last Admin: 07/30/19 05:22 Dose: 100 mls/hr Documented by: Piperacillin Sod/Tazobactam (Sod 3.375 gm/ Sodium Chloride) 50 mls @ 12.5 mls/hr IV Q8 [facility] Levothyroxine Sodium (Synthroid) 75 mcg PO DAILY@0600 [facility] Morphine Sulfate () 2 - 4 mg IV Q1H PRN PRN PRN Reason: Pain Score 1-10/10 Last Admin: 07/30/19 04:21 Dose: 2 mg Documented by: Ondansetron HCl (Zofran) 4 mg IV Q8H PRN PRN PRN Reason: NAUSEA Sodium Chloride () 10 - 40 ml IV UD PRN PRN Reason: SALINE FLUSH Last Admin: 07/30/19 04:22 Dose: 10 ml Documented by: Medical Necessity - Tobacco Use Smoking Status: Never smoker Assessment/Plan All Active Problems Acute appendicitis (Acute) Leukocytosis persists. Not unexpected with localized perforated appendicitis. Patient encouraged to ambulate as tolerated per her other medical comorbidities. We will continue IV antibiotics. Ongoing hospitalization and care required. Bull Sharma M.D., F.A.C.S.
[2019-07-30 07:17] VITALS: O2SAT 96
[2019-07-30 08:25] VITALS: BP 127/53; PULSE 89; RESP 18; TEMP 37.1; O2SAT 94
[2019-07-30] MEDS: Atenolol 25 MG Tablet PO (09:31)
[2019-07-30] MEDS: DULoxetine Hcl 20 MG Capsule PO (09:31)
--- NOTE | 2019-07-30 10:21 | CASEMGMT ---
RN CM Assessment Introduced role of RN CM to patient.? Patient is alert, oriented and able?to participate in RN CM Assessment. ?Care providers, pharmacy, and demographics verified. Presentation: Abd pain, seen at [facility] and told had a Flu type bug Admit Dx: Perforated Acute Appendicitis w/localized abscess wall Re-Admit: No Barriers/Issues: None. States that her brother is a retired doctor from [employer]. Plans to go to [place] to visit family for the Holidays. PCP: Chris Arceo Specialists: Ortho- [facility] Preferred Pharmacy: [facility] Insurance: [employer], Mcr A only Rx Benefit:?Yes ?LNOK: Blake Montaño LW/HPOA: None, declines offered information or services on this admission. Made aware can return as an outpatient to complete with dept Living Arrangements:? Lives with her in a 2SH, states has normal amount of stairs to go up. 2-3 steps to enter home through the garage. ADL?s: Ambulates with a 2WW, d/t h/o Rt knee fx, Lt knee has been replaced, LLE with nerve damage and drop foot. Independent with ADLs Transportation: Both patient and her drive DME: 2WW, Cane HHC: None. States her has hired private pay help in the past when he was returning to work to help keep an eye on her. SNF: None Goal: Home and states does not think will have any additional needs. Denies any issues, questions or concerns with DC planning at this time. Aware CM remains available for any emerging needs. DC PLAN: Home with no anticipated needs identified at this time. KAVYA Dominguez
--- NOTE | 2019-07-30 13:11 | CHAPLAIN ---
Type of Pastoral Visit _x__ Initial Visit ___ Follow-up Visit ___ On-call Visit ___ General Patient Visit ___ Spiritual Assessment ___ Family Conference ___ Bereavement ___ Rapid Response ___ Code Blue ___ Other (describe below) Pastoral Care Referral From _x__ Patient ___ Family ___ Nurse ___ Physician ___ Tire Manager ___ Scientific Illustrator ___ Other (describe below) Sacrament/Intervention _x__ Active listening ___ Anointing ___ Pentecostalism ___ Bereavement ___ Communion ___ Sparkle exploration ___ _x__ Life review _x__ Prayer ___ Reconciliation ___ Sacrament of Sick _x__ Supportive presence ___ Wedding ___ Other (describe below) Pastoral Comments
[2019-07-30] MEDS: Acetaminophen 325 MG Tablet 650 MG PO (13:30)
[2019-07-30 15:23] VITALS: BP 146/64; PULSE 84; RESP 18; TEMP 37.1; O2SAT 96
[2019-07-30] MEDS: Lactated Ringers 1,000 ML 70 ML IV (18:41)
[2019-07-30 20:59] VITALS: BP 135/55; PULSE 74; RESP 16; TEMP 36.7; O2SAT 96
[2019-07-30] MEDS: Gabapentin 300 MG Capsule 600 MG PO (21:16)
[2019-07-31 03:20] VITALS: BP 149/69; PULSE 82; RESP 18; TEMP 37.2; O2SAT 93
[2019-07-31] MEDS: Morphine 2 MG/ML Syringe IV ×2 (03:20→08:50)
[2019-07-31 06:03] LABS: Absolute Lymphocyte Count 1.49 X10^3/uL (0.83-4.51); Absolute Neutrophil Count 6.7 X10^3/uL (2.0-7.7); Basophil# 0.01 X10^3/uL; Basophil% 0.1 % (0-1); Eosinophil# 0.03 X10^3/uL; Eosinophils% 0.3 % (0-5); Hematocrit 30.7 % (37-47); Hemoglobin 9.8 g/dL (12.0-15.0); Lymphocyte # 1.49 X10^3/ul (4.0); Lymphocyte % 16.6 % (19-41); Mean Corp Hgb Conc 31.9 g/dL (32-36); Mean Corpuscular Hgb 31.1 pg (27.0-32.0); Mean Corpuscular Volume 97.5 fL (81-99); Mean Platelet Vol. 8.7 fl (6.2-12.0); Monocyte# 0.67 X10^3/uL; Monocyte% 7.5 % (0-10); NRBC Flagged by Analyzer 0 % (0-5); Neutrophil # 6.71 X10^3/uL (2.7-7.7); Neutrophil % 75.1 % (47-70); Platelet Count 225 K/mm3 (150-450); RBC Distribution Width CV 12.4 % (11.6-14.6); RBC Distribution Width SD 43.9 fl (35.1-43.9); Red Blood Count 3.15 M/mm3 (4.2-5.4)
--- NOTE | 2019-07-31 06:20 | PN.SURG_ITS ---
Patient Problems: Active and Suspected Problems Acute appendicitis (Acute) Subjective: Persistent soreness/tenderness right lower quadrant at the site of the perforated appendicitis. Abdominal distention. No nausea. Tolerating clear liquids. No flatus. - Physical Exam Vitals/I&O's: Vital Signs Temp Pulse Resp BP Pulse Ox 98.9 F 82 18 149/69 H 93 07/31/19 03:20 07/31/19 03:20 07/31/19 03:20 07/31/19 03:20 07/31/19 03:20 Oxygen Flow Rate (L/min) 1 Oxygen Delivery Method Room Air Weight: 145 lb Body Mass Index (BMI) 24.9 Intake and Output for Last 24 Hours 07/29/19 07/30/19 07/31/19 23:59 23:59 23:59 Intake Total 2049 2878.83 / 3078.83 250 / 250 Output Total 650 / 900 250 / 250 Balance 2049 2228.83 / 2178.83 0 / 0 Abdomen: Bowel Sounds Present, Soft - focally tender RLQ Microbiology Past 72 Hours 07/29/19 Unknown Wound Abcess - Aerobic & Anaerobic Swabs Gram Stain - Final 07/29/19 Unknown Wound Abcess - Aerobic & Anaerobic Swabs Wound 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 - 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 Laboratory Results 07/31/19 05:38: WBC 9.0, RBC 3.15 L, Hgb 9.8 L, Hct 30.7 L, MCV 97.5, MCH 31.1, MCHC 31.9 L, RDW Std Deviation 43.9, RDW Coeff of Nieves 12.4, Plt Count 225, MPV 8.7, Immature Gran % (Auto) 0.400, Neut % (Auto) 75.1 H, Lymph % (Auto) 16.6 L, Love % (Auto) 7.5, Eos % (Auto) 0.3, Baso % (Auto) 0.1, Absolute Neuts (auto) 6.7, Absolute Lymphs (auto) 1.49, Nucleated RBC % 0 Current Medications Acetaminophen (Tylenol) 650 mg PO Q6H PRN PRN PRN Reason: Pain Score 1-10/10 Last Admin: 07/30/19 13:30 Dose: 650 mg Documented by: Atenolol (Tenormin (Beta Lisa)) 25 mg PO DAILY [facility] Last Admin: 07/30/19 09:31 Dose: 25 mg Documented by: Duloxetine HCl (Cymbalta) 20 mg PO DAILY [facility] Last Admin: 07/30/19 09:31 Dose: 20 mg Documented by: Gabapentin (Neurontin) 600 mg PO QHS [facility] Last Admin: 07/30/19 21:16 Dose: 600 mg Documented by: Lactated Ringer's () 1,000 mls @ 70 mls/hr IV .[id number] [facility] Last Admin: 07/30/19 18:41 Dose: 70 mls/hr Documented by: Piperacillin Sod/Tazobactam (Sod 3.375 gm/ Sodium Chloride) 50 mls @ 12.5 mls/hr IV Q8 [facility] Last Infusion: 07/31/19 01:16 Dose: Infused Documented by: Sodium Chloride () 250 mls @ 15 mls/hr IV .[id number] PRN PRN Reason: Saline Flush Levothyroxine Sodium (Synthroid) 75 mcg PO DAILY@0600 [facility] Last Admin: 07/30/19 06:01 Dose: 75 mcg Documented by: Morphine Sulfate () 2 - 4 mg IV Q1H PRN PRN PRN Reason: Pain Score 1-10/10 Last Admin: 07/31/19 03:20 Dose: 2 mg Documented by: Non-Formulary Medication (T3) 22.5 mg PO BID [facility] Ondansetron HCl (Zofran) 4 mg IV Q8H PRN PRN PRN Reason: NAUSEA Sodium Chloride () 10 - 40 ml IV UD PRN PRN Reason: SALINE FLUSH Last Admin: 07/30/19 18:42 Dose: 10 ml Documented by: Medical Necessity - Tobacco Use Smoking Status: Never smoker Assessment/Plan All Active Problems Acute appendicitis (Acute) Slow progress status post laparoscopic resection for perforated appendicitis. 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 We will advance to full liquids. Continue IV antibiotics. Hopefully with further ambulation the patient will be able to pass flatus today. Bull Sharma M.D., F.A.C.S.
[2019-07-31] MEDS: Levothyroxine 75 MCG Tablet PO (06:43)
[2019-07-31 08:44] VITALS: BP 148/60; PULSE 89; RESP 18; TEMP 37.7; O2SAT 94
[2019-07-31] MEDS: Atenolol 25 MG Tablet PO (08:50)
[2019-07-31] MEDS: DULoxetine Hcl 20 MG Capsule PO (08:50)
[2019-07-31] MEDS: Acetaminophen 325 MG Tablet 650 MG PO (08:50)
--- NOTE | 2019-07-31 11:04 | NURSING ---
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
[2019-07-31 14:23] VITALS: BP 120/51; PULSE 78; RESP 18; TEMP 36.4; O2SAT 94
[2019-07-31] MEDS: Lactated Ringers 1,000 ML 50 ML IV (14:32)
== END 2019-07-31 18:54 | disposition home or self-care (01) | DRG 340 ==
LOC: ED 18:04 → SDC 20:36 → MS3 23:07
PROVIDERS: Admitting Provider Family Medicine; Emergency Provider Emergency Medicine; Family Provider Student in an Organized Health Care Education/Training Program; PCP Student in an Organized Health Care Education/Training Program; Visit Provider Surgery
PROC: 0DTJ4ZZ Resection of Appendix, Percutaneous Endoscopic Approach (ICD-10-PCS; CPT 44970; principal; 2019-07-29 21:30)
DX: K35.33 Acute appendicitis with perforation, localized peritonitis, and gangrene, with abscess (principal); K38.1 Appendicular concretions
CPT/HCPCS: 36415; 74177; 80053; 81001; 83690; 85025; 87070; 87075; 87077; 87186; 87205; 88304; 93005; 99251; 99284; J7030; J7120; Q9967; A4216; G0463; J2405

== ENCOUNTER 2019-09-21 14:29 | Emergency (ER) | payer OTHER, SELFPAY ==
[2019-08-11 12:24] VITALS: BMI 24.9
[2019-09-21 14:30] VITALS: BP 135/74; PULSE 75; RESP 16; TEMP 36.6; O2SAT 98; BMI 25.3
--- NOTE | 2019-09-21 15:03 | RAD_ITS ---
STUDY: X-RAY - LEFT FOOT CLINICAL: Female, 64 years old. FALL. PAIN TO LEFT ANKLE AND FOOT TECHNIQUE: 3 view(s) of the foot. COMPARISON: None. FINDINGS: There is an enthesophyte involving the posterior superior calcaneus at the site of insertion of the Achilles tendon. Plantar spur. Normal visualized subtalar, talonavicular, calcaneocuboid, tarsal and tarsometatarsal articulations. There is demineralization of the metatarsi. There is degenerative arthrosis of the metatarsophalangeal joint of the hallux . Normal tibial and fibular sesamoid bones. Normal interphalangeal joint of the great toe. Normal phalanges of the great toe. Normal second through fifth metatarsophalangeal joints. Normal interphalangeal joints and phalanges of the lesser toes. Diffuse soft tissue swelling. RAD/Foot min 3 Views IMPRESSION: Diffuse soft tissue swelling. Osteopenia. Electronically Signed: Mitchel Galvan, at 15:52 EST , Service support ,
--- NOTE | 2019-09-21 15:04 | VDLE_ITS ---
Reason For Study: LLE swelling RIGHT GSV is normal. CFV is compressible, spontaneous, phasic, competent and demonstrates normal augmentation. FV is compressible, spontaneous, phasic, competent and demonstrates normal augmentation. POP V is compressible, spontaneous, phasic, competent and demonstrates normal augmentation. T/P Trunk is compressible. PTV is compressible. RT PerV is compressible. Procedure Exam performed portable in ED. The exam was diagnostic. A preliminary report was called and/or faxed to ED. Interpretation Summary There is no evidence of left lower extremity deep vein thrombosis. Left great saphenous vein appears patent and compressible segmentally. The examination and interpretation is for the left lower extremity. The documentation above suggests right lower extremity but should be corrected to the left. Ordering Physician: Fannie Frank Referring Physician: Chris Arceo Performed By: Debbie De Leon, LOLITA, RVT
--- NOTE | 2019-09-21 15:05 | ED.VIS.GEN ---
History of Present Illness Chief Complaint: Lower Extremity Injury Informant: Patient Onset: Weeks - 1.5 weeks Context: Gradual Onset Timing: Waxes and wanes Current Severity: Moderate Maximum Severity: Moderate Narrative: Patient reports having a history of back surgery with radicular symptoms to her legs chronically. She states she is usually very careful when ambulating and using her assistive devices. A week and a half ago she fell while in her kitchen with her left foot tingling up underneath her. She has been trying Tylenol, ibuprofen, and elevation without significant improvement. She continues to have pain and swelling. She denies any other injury from her fall. - Past Medical History (1) Previous back surgery Status: Chronic (2) Hypertension Status: Chronic (3) Hypothyroid Status: Chronic (4) History of appendectomy Status: Chronic Past Medical History - Allergies and Home Meds Allergies/Adverse Reactions: Allergies oxaprozin [From Daypro] Allergy (Verified 09/21/19 14:33) Nausea oxycodone Allergy (Verified 09/21/19 14:33) Nausea/Vom/Diarrhea Primary Care Physician: Chris Naylor DO [Primary Care Provider] - Prior records reviewed: Yes Smoking Status: Never smoker Review of Systems General: Denies: Chills, Fever Eyes: Denies: Visual changes - bilaterally ENT: Denies: Bilateral ear pain Cardiovascular: Denies: Chest pain Respiratory: Denies: Dyspnea, Cough Gastrointestinal: Denies: Abdominal pain, Nausea, Vomiting, Diarrhea Musculoskeletal: Reports: Swelling, Extremity Pain. Denies: Neck pain, Back pain Skin: Denies: Rash Neurological: Reports: Parasthesia - Chronic paresthesias from prior back surgery Hematologic: Denies: Easy bruising Allergy: Denies: Uticaria Physical Exam Vital Signs/Narrative: Vital Signs Temp Pulse Resp BP Pulse Ox 09/21/19 14:30 97.9 F 75 16 135/74 H 98 Inital Vital Signs reviewed: Yes General: Well nourished, Well developed Head: Normocephalic ENT: Moist mucous membranes Neck: Supple Cardiovascular: Regular rate, Regular rhythm Respiratory: No distress, CTA bilaterally Abdomen: Soft, Nontender Extremities: - - 3+ edema left lower extremity. No focal calf tenderness. Minimal tenderness over the top of the left foot with no skin changes. No open wounds are noted. She has strong pulses with good range of motion. Skin: - - Minimal resolving ecchymosis noted along the medial portion of the ankle. Neurological: Alert, Oriented x3 Psychological: Normal affect Diagnostic/Tx/Re-eval Impressions Foot X-Ray 09/21/19 15:03 IMPRESSION: Diffuse soft tissue swelling. Osteopenia. Electronically Signed: Mitchel Mandy, at 15:52 EST , Service support , Ankle X-Ray 09/21/19 15:30 IMPRESSION: Diffuse soft tissue swelling. Osteopenia. Electronically Signed: Mitchel Mandy, at 15:51 EST , Service support , 09/21/19 15:03 Foot min 3 Views [RAD] Stat 09/21/19 15:30 Ankle min 3 Views [RAD] Stat - Medical Decision Making Venous ultrasound of the left lower extremity was also obtained and reveals no evidence of DVT. Test results discussed with the patient. She already wears a foot brace for chronic dropfoot. Her left lower leg is wrapped with an Ubaldo wrap to provide light compression. She will follow with her PCP if not improving. ED Disposition - Plan for ED Patient: Disposition: Home or Assisted Living Diagnosis: Foot sprain Instructions: Sprain Foot Referrals: Chris Naylor, [Primary Care Provider] - 1 Week if not improving
--- NOTE | 2019-09-21 15:30 | RAD_ITS ---
STUDY: X-RAY - LEFT ANKLE REASON FOR EXAM: Female, 64 years old. FALL. PAIN TO LEFT ANKLE AND FOOT TECHNIQUE: 3 view(s) of the ankle. COMPARISON: None. FINDINGS: The mineralization of the distal tibia and fibula. Normal medial and lateral malleoli. Normal tibiotalar articulation and ankle mortise. Calcaneal spurs. The visualized subtalar, talonavicular, calcaneocuboid and tarsal articulations are normal. Soft tissue swelling. RAD/Ankle min 3 Views IMPRESSION: Diffuse soft tissue swelling. Osteopenia. Electronically Signed: Mitchel Galvan, at 15:51 EST , Service support ,
== END 2019-09-21 16:39 | disposition home or self-care (01) ==
PROVIDERS: Emergency Provider Emergency Medicine; PCP Student in an Organized Health Care Education/Training Program
DX: S93.602A Unspecified sprain of left foot, initial encounter (principal); I10 Essential (primary) hypertension; E03.9 Hypothyroidism, unspecified; W01.0XXA Fall on same level from slipping, tripping and stumbling without subsequent striking against object, initial encounter; Z79.899 Other long term (current) drug therapy
CPT/HCPCS: 73610; 73630; 93971; 99282

== ENCOUNTER → 2020-01-29 10:29 | Outpatient (CLI) | payer OTHER, SELFPAY ==
[2020-01-29 12:18] LABS: Absolute Neutrophil Count 2.8 X10^3/uL (2.0-7.7); Basophil# 0.03 X10^3/uL; Basophil% 0.6 % (0-1); Eosinophil# 0.13 X10^3/uL; Eosinophils% 2.4 % (0-5); Hematocrit 36.8 % (37-47); Hemoglobin 11.2 g/dL (12.0-15.0); Mean Corp Hgb Conc 30.4 g/dL (32-36); Mean Corpuscular Hgb 30.2 pg (27.0-32.0); Mean Corpuscular Volume 99.2 fL (81-99); Mean Platelet Vol. 8.8 fl (6.2-12.0); Monocyte# 0.41 X10^3/uL; Monocyte% 7.6 % (0-10); NRBC Flagged by Analyzer 0 % (0-5); Neutrophil # 2.83 X10^3/uL (2.7-7.7); Neutrophil % 52.2 % (47-70); Platelet Count 278 K/mm3 (150-450); RBC Distribution Width CV 13.2 % (11.6-14.6); RBC Distribution Width SD 47.5 fl (35.1-43.9); Red Blood Count 3.71 M/mm3 (4.2-5.4); White Blood Count 5.4 K/mm3 (4.4-11.0)
[2020-01-29 12:29] LABS: AST(SGOT) 16 U/L (15-37); Alanine Aminotransfer ALT/SGPT 20 U/L (13-56); Albumin, Serum 3.6 g/dL (3.2-5.0); Alkaline Phosphatase 98 U/L (45-117); Bilirubin, Direct 0.14 mg/dL (0.00-0.30); Globulin 3.6 g/dL (2.2-4.2); Protein, Total 7.2 g/dL (6.4-8.2)
[2020-02-02 03:07] LABS: QNTFERON TB Mitogen Value 8.73 IU/mL (.); QNTFERON TB Nil Value 0.03 IU/mL (.); QNTFERON TB1+ Ag Value 0.04 IU/mL (.); QNTFERON TB2+ Ag Value 0.03 IU/mL (.)
[2020-02-02 04:50] LABS: QNTIFERON TB Positive Criteria Negative (Negative)
== END ==
PROVIDERS: PCP Student in an Organized Health Care Education/Training Program; Referring Provider Dermatology; Visit Provider Dermatology
DX: Z79.899 Other long term (current) drug therapy (principal); L40.0 Psoriasis vulgaris
CPT/HCPCS: 36415; 80076; 85025; 86480

== ENCOUNTER 2020-02-09 13:30 | Outpatient (RCR) | payer OTHER, SELFPAY ==
[2019-08-11 12:24] VITALS: BMI 24.9
--- NOTE | 2019-08-25 12:51 | HP.PTEVAL ---
Patient's Visit Information CHRIS BEATTY is a 64 year old F referred to Physical Therapy by AFSHAN COVARRUBIAS with a diagnosis of R knee OA and insufficency fx R medial tibia. Date of Evaluation: 08/25/19 Physical Therapist: García Bradshaw, DPT, OCS, CSCS - Visit Plan Frequency: 2x /Week Duration: 2 Months Plan: 2x/week x4-8 weeks for aquatic based LE strength adn ROM and stretching of ITB and quads and HS adn progress to I. Progress to land once I with water adn pain improving. Pt has L foot drop and walks with cane. - Subjective Findings: R knee meniscal tear and fracture insidious late last year. Resting in brace for last 3 months. Pain is coming down. Still has L nerve pain and drop foot from back surgery early last year. Having dry needling in nerves L teresa. Nerve pain is still present L lateral lower leg adn is on gabapentin. 5/10. R knee pain is dependent on walking. Worse with more walking. Sitting is 4/10. walking alot is 6/10. This is better than late last year. Brace adn rest was chosen over knee replacement. Needs to be in brace with weight bearing therapy. Sleep is interrupted sometime with discomfort in both legs. Walks with cane R UE. Feels unstable and walks abnormally. Wants to walk more normal with less pain. Doing steps at home with rail with L LE as it is hard to bend R with brace. - Pain R knee Pain Intensity (Out of 10): 4 Pain Intensity Range: 4, 6 - Objective Walks cane R UE with steppage on L and does not need it but uses it regularly. Has brace on R knee and AFO on L anklePoor confidence. Steps prefers to use L as R knee hurts ascending adn descending. Needs rail. trasnfers I with arm of chair. B knee AROM 0-119 AROM and R knee adn L knee hurt at end range. Flex is tight quadsa dn ITB B, HS at -18 90/90 test. LB AROM ext mod limtied, flexion mod limited. SB without pain and min limited. AROM B hips to 50 ext rotation 5 ext and 105 flexion and 30 abd. Hesitant and tired to move R. L ankle is weak at 2 in DF 3- inv/ev and 3 PF, R is 4/5. Knees 4- ext with pain R max, 3+ L flexion and 4- R flexion. Hips at 4- B abd and 3+ ext adn 4- flexion. - Balance Scores Functional Gait Assessment Score: 20 % Disability: 33.3400 - Goals Goal 1:: Patient R knee apain 0-3/10 pain at all times and 50% improved. Goal Time Frame: 4-6 Weeks Goal 2:: Score 24/30 on FGA without AD or antalgia to limit future problems Goal Time Frame: 6-8 Weeks Goal 3:: Ascend and descend steps reciprocally with one rail without increased pain. Goal Time Frame: 6-8 Weeks Goal 4:: Pt back on I workout in gym without increased pain. Goal Time Frame: 4-6 Weeks Goal 5:: <50% disability on LEFS Goal Time Frame: 6-8 Weeks - Rehabilitation Potential Physical Therapy Diagnosis: R knee degeneration, Rested for a couple months and ready to attempt strengthening/function. Rehabilitation Potential: Fair - Anticipated Interventions Patient/Client Instruction: Educate patient on: Condition, Plan of Care For the Purpose of:: To decrease pain, To improve muscle performance and motor function, To increase tolerance to activity/condition/position, To improve ability of physical actions for home/community/work/leisure Therapeutic Exercise to Include: Strength training, Postural training, Flexibilty training, Gait and locomotor training, In an aquatic setting, Passive ROM, Active ROM For the Purpose of:: To decrease pain, To improve muscle performance and motor function, To increase tolerance to activity/condition/position, To improve ability of physical actions for home/community/work/leisure, To improve gait and locomotor functions Thank you for the opportunity to evaluate your patient. For Medicare and Medicare HMO plans, please review the plan of care and approve it. It will need to be FAXED BACK to us at [phone] for Medicare purposes. For Medicare only, by signing this I certify the plan of care. Please let me know if there are questions or concerns regarding this plan of care. Physician Signature: Date:
--- NOTE | 2019-09-23 13:29 | HP.PTREVAL_ITS ---
AFSHAN COVARRUBIAS, It has been my pleasure to treat CHRIS BEATTY over the last 10 visits for R knee OA and insufficency fx R medial tibia. Please see the progress note below for an update on the physical therapy plan of care! Subjective: Fell ten days ago as L foot did not move. Had AFO brace on, still turned L ankle and sprained it adn went to ER. It is swollen. Water therapy has been good. Water is treating her good. She is getting stronger. Less pain in the R knee and L foot as the weight is less. To doctor next for knee. 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 Not ready for land therapy yet. Objective/Function: Walks with L steppage gait due to foot drop , ankle sorenss, appears vidya to step on. Balance appears improved. Steps using L only due to R knee fracture. L foot and ankle still have very limited movement and painful to passively push DF and PF in foot. Overall mobility looks good and improved except for gingerness in L foot, ankle strength not improving. Plan Plan: continue 3x/week for 3 weks in water with I pool as exit strategy when able. Possibly land. Will need L ankle stretch/ROM strength adn general balance, gait and strengthening. Goals appropriate, fair prognosis. Goals Goal 1:: Patient R knee apain 0-3/10 pain at all times and 50% improved. Goal Time Frame: 4-6 Weeks Goal Progress: Goal Met Goal 2:: Score 24/30 on FGA without AD or antalgia to limit future problems Goal Time Frame: 6-8 Weeks Goal Progress: Progressing Goal 3:: Ascend and descend steps reciprocally with one rail without increased pain. Goal Time Frame: 6-8 Weeks Goal Progress: L only now. Goal 4:: Pt back on I workout in gym without increased pain. Goal Time Frame: 4-6 Weeks Goal Progress: afraid until f/u Goal 5:: <50% disability on LEFS Goal Time Frame: 6-8 Weeks Anticipated Interventions Patient/Client Instruction: Educate patient on: Condition, Plan of Care For the Purpose of:: To decrease pain, To improve muscle performance and motor function, To increase tolerance to activity/condition/position, To improve ability of physical actions for home/community/work/leisure Therapeutic Exercise to Include: Strength training, Postural training, Flexibilty training, Gait and locomotor training, In an aquatic setting, Passive ROM, Active ROM For the Purpose of:: To decrease pain, To improve muscle performance and motor function, To increase tolerance to activity/condition/position, To improve ability of physical actions for home/community/work/leisure, To improve gait and locomotor functions Please do not hesitate to contact me at [phone] by phone or if you have questions or concerns regarding this new plan of care! Sincerely, García Bradshaw, DPT, OCS, CSCS
--- NOTE | 2019-10-23 13:47 | HP.PTREVAL ---
AFSHAN COVARRUBIAS, It has been my pleasure to treat CHRIS BEATTY over the last 17 visits for R knee OA and insufficency fx R medial tibia. Please see the progress note below for an update on the physical therapy plan of care! Subjective: I think we've made progress. Saw doctor two weeks ago and he told her he can stop wearing knee brace around the hosue adn for general walking but needs to wear it for land therapy or concrete walking. Not wearing it in the house anymore. Limiting use of cane in the house. Still use it out and about. No falls lately. Pain in r knee is 2/10 most of time. Still limited in activity. L leg still has drop foot adn nerve pain and knee bothers her off and on. Spends day cleaning up house as she is having family over soon. Doing taxes in sitting. Doctor says fracture is healed and meniscus will likely never heal. Will see spine surgeon November 10. I want to be able to get up and walk. I can't do that right now. Drop foot gives her most of instability and wears brace all the time. Feels stronger from the pool. Objective/Function: L ankle with no functional AROM, brace in place. L knee strength 4-/5 adn R knee strength 4-, no increased pain. Hip strength 3+/5 B hip abd and ext, R ankle strength 4-/5. Walks slowly and hesitantly, will not close eyes stating she has to see her feet but not always looking down. Has R steppage gait and R foot drop. Slow but equal step length, hesitant. Transfer out of chair with UE I. steps with rails reciprocally today. No increased pain. Unable to SLS R, Unable to heel lift functionally either leg. Walks smoother with cane. pt is fearful of falling. Overall better but slow improvement. Plan Plan: 2x/week for 4 weeks for land based therapy(to ivette in pool I but quetionable if she will due to busyness coming up)... Work on R ankle strength, machine based LE strength, mat core strength progressing to I and gait training on steps and balance without eyes/ec for confidence as safety allows. Appropriate to cotninue and fair prognosis Goals Goal 1:: Patient R knee apain 0-3/10 pain at all times and 50% improved. Goal Time Frame: 4-6 Weeks Goal Progress: Goal Met Goal 2:: Score 24/30 on FGA without AD or antalgia to limit future problems Goal Time Frame: 6-8 Weeks Goal Progress: not progressing, approp Goal 3:: Ascend and descend steps reciprocally with one rail without increased pain. Goal Time Frame: 6-8 Weeks Goal Progress: Goal Met Goal 4:: Pt back on I workout in gym without increased pain. Goal Time Frame: 4-6 Weeks Goal Progress: approp Goal 5:: <50% disability on LEFS Goal Time Frame: 6-8 Weeks Goal Progress: slow progress, approp. Anticipated Interventions Patient/Client Instruction: Educate patient on: Condition, Plan of Care For the Purpose of:: To decrease pain, To improve muscle performance and motor function, To increase tolerance to activity/condition/position, To improve ability of physical actions for home/community/work/leisure Therapeutic Exercise to Include: Strength training, Postural training, Flexibilty training, Gait and locomotor training, In an aquatic setting, Passive ROM, Active ROM For the Purpose of:: To decrease pain, To improve muscle performance and motor function, To increase tolerance to activity/condition/position, To improve ability of physical actions for home/community/work/leisure, To improve gait and locomotor functions Please do not hesitate to contact me at [phone] by phone or if you have questions or concerns regarding this new plan of care! Sincerely, García Bradshaw, DPT, OCS, CSCS
--- NOTE | 2019-12-22 13:03 | HP.PTREVAL ---
AFSHAN COVARRUBIAS, It has been my pleasure to treat CHRIS BEATTY over the last 23 visits for R knee OA and insufficency fx R medial tibia. Please see the progress note below for an update on the physical therapy plan of care! Subjective: One month layoff due to covid19 scare. Been busy physically. Getting around without cane at home but uses it on uneven ground or stores b/c she doesn't trust people. steps are taxing and needs rail and goes one at a time. Has a lot of family living with her due to covid and is very tired as she cooks for everybody adn always has something to do. Has pain in L leg constant and knee and foot. It is 4/10 and normally stays about there unless she is on feet all day. Baked with granddaughter this morning for 1.5 hours and that still is painful and wears her out. R knee is OK, sowly improving and still protect it. Wants to use machines now to strengthen self. Daughter said she could come back but will not ask brother who is a retired doctor. Still has hard time stepping over things. Blance is improved but can still be challenging out doors. Does a lot of steps at home with railing. R knee doctor [facility] keeps getting postponed. Will see back surgeon supposed to be in October for one year f/u. Needs better balance to get on boat. Objective/Function: L ankle has slight contractions in all directions but no real active ROM. R ankle 4/5 adn WFL AROM. Knee R WFL ROM and strength at 4/5, R knee 4- knee flexiona dn 4- knee ext. Hips abd and ext 4- B and hip flexion 4 B. HS length WFL. Sensation LE WNL to gross light touch. reflexes 1/3 patella and achilles B except achilles L 0. Gait is slap foot on L and premature knee flexion causing limp on L due to weakness in PF ankle. Safe on firm surfcae without AD. Steps prefer step 2 but can do reciprocal with 2 rails today. Avoids FW weight shift on steps. TUG 10 seconds today. Plan Plan: 2x/week for 4 weeks for... 1. 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 2. practice stepping over with R with stance on L LE whcih is poor. 3. Outdoor ambulation on uneven surface. Fair prognosis toward new but similar goals. Goals Goal 1:: Patient R knee apain 0-3/10 pain at all times and 50% improved. Goal Time Frame: 4-6 Weeks Goal Progress: Goal Met Goal 2:: Score 24/30 on FGA without AD or antalgia to limit future problems Goal Time Frame: 6-8 Weeks Goal Progress: Appropriate Goal 3:: Ascend and descend steps reciprocally with one rail without increased pain. Goal Time Frame: 6-8 Weeks Goal Progress: Goal Met Goal 4:: Pt back on I workout in gym without increased pain. Goal Time Frame: 4-6 Weeks Goal Progress: appropriate Goal 5:: <50% disability on LEFS Goal Time Frame: 6-8 Weeks Goal Progress: slow progress, approp. Goal 6:: Step over object safe adn I with either leg to mimic stepping over water into boat. Goal Time Frame: 4-6 Weeks Goal Progress: NEW GOAL Anticipated Interventions Patient/Client Instruction: Educate patient on: Condition, Plan of Care For the Purpose of:: To decrease pain, To improve muscle performance and motor function, To increase tolerance to activity/condition/position, To improve ability of physical actions for home/community/work/leisure Therapeutic Exercise to Include: Strength training, Postural training, Flexibilty training, Gait and locomotor training, In an aquatic setting, Passive ROM, Active ROM For the Purpose of:: To decrease pain, To improve muscle performance and motor function, To increase tolerance to activity/condition/position, To improve ability of physical actions for home/community/work/leisure, To improve gait and locomotor functions Please do not hesitate to contact me at [phone] by phone or if you have questions or concerns regarding this new plan of care! Sincerely, García Bradshaw, DPT, OCS, CSCS
--- NOTE | 2020-01-26 15:10 | HP.PTREVAL_ITS ---
AFSHAN COVARRUBIAS, It has been my pleasure to treat CHRIS BEATTY over the last 31 visits for R knee OA and insufficency fx R medial tibia. Please see the progress note below for an update on the physical therapy plan of care! Subjective: Did 10 min Nustep prior to session on own. Been busy at the house with the fam in town. Boat is in the water and she has been in it. Not the easiest to get in adn can do it with help. Needs folding stool for boat. Pain is still there in L knee and nerve pain L leg 4/10 constant. R knee is OK but minimal. Spine only hurts if moves the wrong way. Sleep is OK. Exercises are going OK and she is getting stronger adn balance is improving. [place] around people. Uses cane out adn about but not needed at home. has done exercises on her own a few times but only if she gets here on time. Still needs to be stronger adn steadier. spine doctor ordered another MRI but says she is healed. Objective/Function: 5% improvement LEFS. TUG improved 2 seconds. FGA not improving. R knee weak functionally on steps. L ankle still not functionally mobile or strong. Some contraction with inv/ev/DF but weak at 3- and PF weak also. L knee is 4- and hip is 4. R knee ext 3+ and felxion 4 adn hip is 4- and ankle is 4+. ROM adn flexibility is WNL in LE. Gait uses cane into therapy but able without cane on firm flat surface and has L foot slap and awkwardness WB on that side.Steps are reciprocal up with rail but weak R knee, Descending can be reciprocally with two rails. Much of her improvement is due to increased confidence which she still lacks with R LE on steps adn stepping over staning on L. OVERALL FRUSTRATINGLY SLOW TO NIL PROGRESS EXCEPT WITH GAIT. COMPLIANCE WITH STRENGTH IS POOR DUE TO FAMILY STAYING WITH THEM AND UNABLE/WILLING TO GET INTO GYM EARLY OR STAY LONGER. QUESTIONABLE IF SHE WILL IMPROVE MUCH FUNCTIONALLY AT THIS POINT BUT DEFINTIELY NEEDS TO KEEP STRENGTHENING AND HAS SOME POSSIBILITIES TO IMPROVE BALACE/FUNCTION WITH STEPPING OVER TO MIMIC BOAT. CONTINUE WITH NEW PLAN ONE MONTH WITH QUESTIONABLE PROGNOSIS AT THIS POINT BUT NEEDS HOME STRENGTHENING Plan Plan: 2X/WEEK FOR ONE MONTH. PLEASE WORK [employer]/LE AND POSTURAL STRENGTH PT CAN DO AT HOME WITH DUMBELLS AND BANDS AND PICTURESAS THIS IS THE MAIN GOAL. CAN WORK ON STEPPING OVER, STEPS WITH R LE AND GAIT OUTDOORS ALSO TIME PERMITS. Goals Goal 1:: I APPROP HOME BASED EXERCISES FOR LE/CORE/POSTURE ADN BALANCE AND HAVE PICTURES AND BE I AND COMPLIANT WITH THEM. Goal Time Frame: 4-6 Weeks Goal Progress: NEW GOAL Goal 2:: Score 24/30 on FGA without AD or antalgia to limit future problems Goal Time Frame: 6-8 Weeks Goal Progress: Not Progressing Goal 3:: Ascend and descend steps reciprocally with one rail without increased pain. Goal Time Frame: 6-8 Weeks Goal Progress: Goal Met Goal 4:: Pt back on I workout in gym without increased pain. Goal Time Frame: 4-6 Weeks Goal Progress: Goal Met, NONCOMPLIANT Goal 5:: <50% disability on LEFS Goal Time Frame: 6-8 Weeks Goal Progress: Not Progressing Goal 6:: Step over object safe adn I with either leg to mimic stepping over water into boat. Goal Time Frame: 4-6 Weeks Goal Progress: with UE assist, APPROP Anticipated Interventions Patient/Client Instruction: Educate patient on: Condition, Plan of Care For the Purpose of:: To decrease pain, To improve muscle performance and motor function, To increase tolerance to activity/condition/position, To improve ability of physical actions for home/community/work/leisure Therapeutic Exercise to Include: Strength training, Postural training, Flexibilty training, Gait and locomotor training, In an aquatic setting, Passive ROM, Active ROM For the Purpose of:: To decrease pain, To improve muscle performance and motor function, To increase tolerance to activity/condition/position, To improve ability of physical actions for home/community/work/leisure, To improve gait and locomotor functions Please do not hesitate to contact me at [phone] by phone or if you have questions or concerns regarding this new plan of care! Sincerely, García Bradshaw, DPT, OCS, CSCS
== END 2020-02-09 19:00 | disposition home or self-care (01) ==
LOC: PT 13:30
PROVIDERS: Family Provider Student in an Organized Health Care Education/Training Program; PCP Student in an Organized Health Care Education/Training Program
DX: M22.41 Chondromalacia patellae, right knee (principal); S83.241A Other tear of medial meniscus, current injury, right knee, initial encounter
CPT/HCPCS: 97110; 97113; 97162; 97164

== ENCOUNTER 2020-02-25 13:00 | Outpatient (RCR) | payer OTHER, SELFPAY ==
--- NOTE | 2020-02-25 13:27 | HP.PTDCSUM ---
It has been my pleasure to treat CHRIS BEATTY referred by AFSHAN COVARRUBIAS, with the diagnosis of R knee OA and insufficieny fx R medial tibia for a total of 38 visit(s). Discharge Date: 02/25/20 Please see the following information for a summary of their discharge status. Subjective: Tired. Did exercises at home yesterday that she has been doing in therapy and they went OK. Needs to find the time to do them. Body hurts because it is going to rain. May come in and do machines later in year and has that handout. % Improvement: 75 Objective/Function: improving FGA and wiliing to walk with eye closed today. has L steppage gait but does nto wish to go to more aggressive brace. Steps reciprocal with one rail and R leg weaker than L. Exits chair without UE. OVERALL SLOW BUT STEADY IMPROVEMENT AND READY TO BE ON OWN WITH EXERCISES AT HOME WITH COMPLIANCE BEING THE BIG QUESTION. Goal 1:: I approp home based exercises for LE/core/posture and balance and have pictures and Be I and compliant with them Goal Progress: Goal Met Plan: D/C TO HEP If there are questions or concerns regarding this patient's physical therapy, please feel free to call me at [phone]. Thank you for the referral of this patient. Sincerely, García Bradshaw, DPT, OCS, CSCS
== END 2020-02-25 19:00 | disposition home or self-care (01) ==
LOC: PT 13:00
PROVIDERS: PCP Student in an Organized Health Care Education/Training Program
DX: M17.11 Unilateral primary osteoarthritis, right knee (principal)
CPT/HCPCS: 97110; 97164

== ENCOUNTER → 2020-06-15 15:02 | Outpatient (CLI) | payer OTHER, SELFPAY ==
--- NOTE | 2020-06-15 15:04 | BI_ITS ---
MAMMOGRAPHY - BILATERAL SCREENING REASON FOR EXAM: Female, 64 years old. Routine annual screening examination. PERTINENT HISTORY: Non-contributory. TECHNIQUE: Digital bilateral breast kaycee (3D mammographic acquisition) in the CC and MLO projections. 2-D mediolateral oblique (MLO) and craniocaudad (CC) views of both breasts were obtained. CAD: Full Field Digital Mammography with Computer Added Detection was performed. COMPARISON: Comparison is made with prior study dated 09/18/2018 and 07/16/2017. FINDINGS: Breast Composition: The breasts are heterogeneously dense, which may obscure small masses. There are no dominant masses or suspicious calcifications. Stable small benign appearing bilateral axillary lymph nodes. No other significant abnormalities are identified. There has been no significant change since the prior study. BI/SCREEN MAMM (CAD) W/KAYCEE BILAT IMPRESSION: Stable bilateral screening mammogram. Yearly follow-up mammogram recommended. (A) ASSESSMENT CATEGORY: BIRADS Category 2: Benign. A letter regarding these results will be sent to the patient by the facility within 30 days. Approximately 10% of breast cancers are not detected by mammography. A normal mammogram should not delay biopsy of a clinically suspicious abnormality. [id number] Electronically Signed: Mitchel Galvan, at 15:57 EST , Service support ,
== END ==
PROVIDERS: PCP Student in an Organized Health Care Education/Training Program; Referring Provider Student in an Organized Health Care Education/Training Program; Visit Provider Student in an Organized Health Care Education/Training Program
DX: Z12.31 Encounter for screening mammogram for malignant neoplasm of breast (principal)
CPT/HCPCS: 77063; 77067

== ENCOUNTER → 2023-02-14 | Outpatient (CLI) | payer MEDICARE, OTHER, SELFPAY ==
[2023-02-16 12:08] LABS: QNTFERON TB Mitogen Value > 10.00 IU/mL (.); QNTFERON TB Nil Value 0.22 IU/mL (.); QNTFERON TB1+ Ag Value 0.14 IU/mL (.); QNTFERON TB2+ Ag Value 0.14 IU/mL (.); QNTIFERON TB Positive Criteria Negative (Negative)
== END | disposition home or self-care (01) ==
LOC: MTLAB 12:06
PROVIDERS: PCP Student in an Organized Health Care Education/Training Program
DX: L40.0 Psoriasis vulgaris (principal)
CPT/HCPCS: 36415; 86480

== ENCOUNTER → 2024-01-24 | Outpatient (CLI) | payer MEDICARE, OTHER, SELFPAY ==
[2024-01-28 12:09] LABS: QNTFERON TB Mitogen Value > 10.00 IU/mL (.); QNTFERON TB Nil Value 0.07 IU/mL (.); QNTFERON TB1+ Ag Value 0.09 IU/mL (.); QNTFERON TB2+ Ag Value 0.05 IU/mL (.); QNTIFERON TB Positive Criteria Negative (Negative)
== END | disposition home or self-care (01) ==
LOC: MTLAB 14:44
PROVIDERS: PCP Student in an Organized Health Care Education/Training Program
DX: L40.0 Psoriasis vulgaris (principal); L81.4 Other melanin hyperpigmentation; Z79.899 Other long term (current) drug therapy
CPT/HCPCS: 36415; 86480

== ENCOUNTER 2025-07-22 11:00 | Outpatient (RCR) | payer MEDICARE, OTHER, SELFPAY ==
--- NOTE | 2025-06-07 14:42 | HP.PTEVAL ---
Patient's Visit Information Visit Information Visit Information: CHRIS BEATTY is a 69 year old F referred to Physical Therapy by Dr. García Manjarrez MD with a diagnosis of crvical radiculopathy, spondylosis. Date of Evaluation: 06/07/25 Physical Therapist: García Bradshaw, DPT, OCS, CSCS Visit Plan Frequency: 2x /Week Duration: 4-6 Weeks Plan: 2x/week for 3-6 weeks IE HEP: c/s retraction ext 10x 8x/day, scap [id number] throughout day, posture. treat with : MH and STM L UT and stretch, progression of cervical ext ROM and progression of forces, manaual therapy for traction and mobs PA ext adn rotation if needed., strengthening of neck and posture to HEP. Subjective Subjective: 2 weeks ago twisted in the am and twisted to pick it up and got pain l sidee of neck. may have felt funny prior but thought she was sleeping on it wrong. 9/10 at first, 6/10 now. Initially had some arm pain B. Went to Er and could not walk in. Meds and imaging at ER and sent to ortho last week. Sleep is OK now on the meds. Activity: avoiding lifting twisting bending. is careful with doing anything. Avoids walking down to half basement as she has to duck head. Basic ADLs all done. Pain L neck: Pain Intensity (Out of 10): 4 Pain Intensity Range: 6 Comment: 9/10 at first, now 6/10 constant. Objective Objective: cervical rotation L 60 and pain, R 65, SB R painful on L., extension 40 and deviate R, flexion painful. UE AROM WFL adn without pain, strngth 3+/5 without myotomal abnormalities. . reflexes bi and tri 2/3 sensation UE WNL to gross light touch. Posture is FW head and protracted scapula. Slight R SB. Tender to touch L UT and lev scap. + c/s compression test L. reepeated motion protrusion NE cervical flexion : PDM, Better ext without deviation. cervical retraction: PDM, NE, increasd extension. crvical extension: Better, increased ROM to 60 ext. no deviation. Balance/Special Test Scores Oswestry Neck Score: 24 Goals Goal 1:: Full cervical aROM without deviations or pain Goal Time Frame: 4-6 Weeks Goal 2:: Pain i neck gone at rest adn 1/10 at worst manageable, at 90% better. Goal Time Frame: 4-6 Weeks Goal 3:: Abl to walk in half basement with head tucked without pain. Goal Time Frame: 4-6 Weeks Goal 4:: I management of condition. Goal Time Frame: 4-6 Weeks Goal 5:: 10 or leess oswestry score neeck Goal Time Frame: 4-6 Weeks Rehabilitation Potential Physical Therapy Diagnosis: neck ROM deficits, tightness and pain limiting comfortable funciton. Rehabilitation Potential: Fair Anticipated Interventions Patient/Client Instruction: Educate patient on: Condition and Plan of Care For the Purpose of:: To decrease pain, To increase ROM, To improve nutrient delivery to tissue, To increase tolerance to activity/condition/position, To improve ability of physical actions for home/community/work/leisure and To improve gait and locomotor functions Therapeutic Exercise to Include: Strength training, Postural training, Flexibilty training, Passive ROM and Active ROM For the Purpose of:: To decrease pain, To increase ROM, To improve nutrient delivery to tissue, To improve muscle performance and motor function, To increase tolerance to activity/condition/position and To improve ability of physical actions for home/community/work/leisure Manual Therapy Techniques to Include: Petrissage, Passive ROM and Soft tissue mobilization For the Purpose of:: To decrease pain, To increase ROM and To increase tolerance to activity/condition/position Thermo therapy (hot pack): Yes For the Purpose of:: To improve nutrient delivery to tissue Text: Thank you for the opportunity to evaluate your patient. For Medicare and Medicare HMO plans, please review the plan of care and approve it. It will need to be FAXED BACK to us at [phone] for Medicare purposes. For Medicare only, by signing this I certify the plan of care. Please let me know if there are questions or concerns regarding this plan of care. Physician Signature: Date:
--- NOTE | 2025-07-22 11:21 | HP.PTDCSUM ---
Discharge Summary D/C summary: It has been my pleasure to treat CHRIS BEATTY referred by Dr. García Manjarrez MD, with the diagnosis of cervical radiculopathy, spondylosis for a total of 9 visit(s). Discharge Date: 07/22/25 Please see the following information for a summary of their discharge status. Subjective Subjective: MRI was yesterday, been doing exeercisees off and on. Busy time of year with holidays. Doing them every other day. Make hr feeel better. Less painful afterwards. No arm symptoms anymore. L UT symptoms. Sleep is OK. Cats are still sleeping. Pain L neck: Pain Intensity (Out of 10): 4 Overall Improvement % Improvement: 50 Objective Objective/Function: 68 L rotation, R rotation 70, 78 ext. Good ROM but pain in L UT persists, mildly tender but not improving. Goals Goal 1:: Full cervical aROM without deviations or pain Goal Progress: Progressing Goal 2:: Pain i neck gone at rest adn 1/10 at worst manageable, at 90% better. Goal Progress: Progressing Goal 3:: Abl to walk in half basement with head tucked without pain. Goal Progress: not done lately. Goal 4:: I management of condition. Goal Progress: Goal Met Goal 5:: 10 or leess oswestry score neeck Goal Progress: SLOW Plan Plan: d/c, pt to get MRI results and options from doctor. D/C Information Discharge Comments: Pt to doctor for other options after MRI d/c sentence: If there are questions or concerns regarding this patient's physical therapy, please feel free to call me at [phone]. Thank you for the referral of this patient. Sincerely, García Bradshaw, DPT, OCS, CSCS Balance/Gait/Functional tests Balance/Special Test Scores Oswestry Neck Score: 20 Improvement % Improvement: 50
== END 2025-07-22 19:00 | disposition home or self-care (01) ==
LOC: PT 11:00
PROVIDERS: PCP Student in an Organized Health Care Education/Training Program; Referring Provider Orthopaedic Surgery Orthopaedic Surgery of the Spine; Visit Provider Orthopaedic Surgery Orthopaedic Surgery of the Spine
DX: M54.12 Radiculopathy, cervical region (principal); M47.812 Spondylosis without myelopathy or radiculopathy, cervical region
CPT/HCPCS: 97110; 97140; 97161; 97164; 97530